=== PATIENT | male | born 1945 | race Caucasian/White ===

== ENCOUNTER 2017-10-26 09:30 | Outpatient (RCR) | payer MEDICARE, SELFPAY ==
[2017-10-19 10:55] VITALS: BP 160/76; PULSE 62; RESP 16; TEMP 36.2; BMI 21.6
[2017-10-19 11:14] VITALS: BMI 21.6
--- NOTE | 2017-10-19 11:53 | PCM.WC.HP ---
(1) Edema of both lower legs due to peripheral venous insufficiency Status: Acute Current Visit: Yes Code(s): I87.2 - Venous insufficiency (chronic) (peripheral); R60.9 - Edema, unspecified (2) Peripheral arterial occlusive disease Status: Acute Current Visit: Yes Code(s): I77.9 - Disorder of arteries and arterioles, unspecified (3) Infected open wound Status: Acute Current Visit: Yes Code(s): T14.8XXA - Other injury of unspecified body region, initial encounter; L08.9 - Local infection of the skin and subcutaneous tissue, unspecified (4) MRSA (methicillin resistant Staphylococcus aureus) infection Status: Acute Current Visit: Yes Code(s): A49.02 - Methicillin resistant Staphylococcus aureus infection, unspecified site (5) Non-healing ulcer of lower extremity Status: Acute Current Visit: Yes Code(s): L97.909 - Non-pressure chronic ulcer of unspecified part of unspecified lower leg with unspecified severity History of Present Illness Date of Service: 10/19/17 Chief Complaint: Follow-up right lateral lower leg and posterior leg open ulcers History of Wound: 71-year-old white male that appears to be much older. For 9 months has been babying some punctuated ulcers on his right lower leg lateral and posterior. Now show some yellow slough and was cultured for MRSA. Started on clindamycin and is finishing that up in the last 2 pills. She has been using [id number] Neosporin ointment on open ulcers. Here by his family Dr. Elvia Roman Past Medical History Past Medical History: Lower leg for 9 months hyperlipidemia hypertension GERD Allergies/Adverse Reactions: Allergies amoxicillin Allergy (Verified 10/19/17 11:39) Unknown AMOXICILLIN Allergy (Uncoded 08/04/17 21:51) Rash BACTRIM Allergy (Uncoded 08/04/17 21:51) Unknown ERYTHROMYCIN Allergy (Uncoded 08/04/17 21:51) Unknown PRPOXYPHENE-ACETAMINOPHEN Allergy (Uncoded 08/04/17 21:51) Unknown Home Medications: Ambulatory Orders Medication Instructions Recorded Atorvastatin Calcium [Lipitor] 20 mg PO DAILY 11/06/16 Hydrochlorothiazide 25 mg PO DAILY 11/06/16 Lisinopril [Zestril] 40 mg PO DAILY 11/06/16 Potassium Chloride [K-Dur] 20 meq PO DAILY 11/06/16 BusPIRone [Buspar] 10 mg PO BID 04/10/17 Metoprolol Succinate [Toprol Xl] 100 mg PO DAILY 04/10/17 Amlodipine [Norvasc] 10 mg PO DAILY 08/04/17 Meclizine HCl 25 mg PO 4X/DAY PRN 08/04/17 Naproxen 500 mg PO BID PRN PRN 08/04/17 Omeprazole 40 mg PO DAILY 08/04/17 Paroxetine 40 mg PO DAILY 08/04/17 Clindamycin [Cleocin] 300 mg PO TID 10/19/17 Lives: Alone Smoking Status: Former smoker Review of Systems Constitutional: Denies: Chills, Fever Eyes: Denies: Blurred vision, Drainage, Pain HEENT: Denies: Difficulty Hearing, Difficulty Swallowing, Sore Throat, Visual Changes Cardiovascular: Denies: Chest Pain, Palpitations, Syncope Respiratory: Denies: Cough, Shortness of Breath Gastrointestinal: Denies: Abdominal Pain, Nausea, Vomiting Genitourinary: Denies: Dysuria, Frequency Musculoskeletal: Denies: Joint Pain, Muscle pain Skin: Reports: Wounds - Open ulcers right lower leg. Denies: Jaundice, Rash Neurological: Denies: Balance problems, Change in Speech, Difficulty swallowing, Focal weakness Psychiatric: Denies: Anxiety, Depression Endocrine: Denies: Change in Body Habitus Hematologic/ Lymphatic: Denies: Adenopathy - Physical Exam Vital Signs Temp Pulse Resp BP 97.1 F L 62 16 160/76 H 10/19/17 10:55 10/19/17 10:55 10/19/17 10:55 10/19/17 10:55 General: Oriented x3, Cooperative, Well developed HEENT: Atraumatic, PERRLA Oral: Moist Mucosa Neck: Supple, No JVD Lungs: Clear to auscultation, Normal air movement Cardiovascular: Regular rate, Regular Rhythm Abdomen: Bowel Sounds Present, Soft, Non Tender, No Hepato-splenomegaly Extremities: No clubbing, No edema, - - Right lower leg ulcers lateral and posterior Wound Measurements and Assessment WC - Nurse 1 - General Ulcer Measurement Start: 10/19/17 10:36 Freq: Status: Active Protocol: Activity Type Activity Date Activity User E-Sign Co-Sign Detail Recorded Client Recorded Date Recorded By Document 10/19/17 10:55 [facility] [id number] 10/19/17 11:11 [facility] 10/19/17 10:55 Wound Center Nurse 1 [Ulcer Assessment] #1- RT POST LEG CLUSTER -Combined with other wound No -Current Size (cm) - Length 20 -Current Size (cm) - Width 7.8 -Current Size (cm) - Depth 0.1 -Total Square Cm 156.0 -Date of Last Picture (Recall this 10/19/17 field) -Photo Taken Yes -Epithelialization None Present -Tunneling No -Undermining/Tunneling No -Exudate Amt Small (1-33%) -Exudate Type Serous -Granulation Amt Small (1-33%) -Granulation Quality Red -Slough/Fibrin Yes -Necrosis Amt Small (1-33%) -Necrotic Tissue Type Adherent Slough -Structure Exposed N/A -Texture (Frances-wound Skin Appearance) Rash -Moisture (Frances-wound Skin Appearance Assessed ) -Color (Frances-wound Skin Appearance) Ecchymosis Erythema -Temperature (Frances-wound Skin No Abnormality Appearance) (Pt Warm) -Tenderness on Palpation (Frances-wound No Skin Appearance) -Ulcer Cleansing Rinsed/ Irrigated with Saline -Foul Odor after Cleansing No -Anesthetic Used 4% Lidocaine Solution [Edema Assessment] -Lower Limb Edema Present Yes -Right Calf (cm) 31.5 -Right Ankle (cm) 22.9 -Left Calf (cm) 30.5 -Left Ankle (cm) 21.6 WC - Nurse 2 - General Ulcer CM Notes Start: 10/19/17 10:36 Freq: Status: Active Protocol: Activity Type Activity Date Activity User E-Sign Co-Sign Detail Recorded Client Recorded Date Recorded By Document 10/19/17 11:34 MW [id number] 10/19/17 11:40 MW 10/19/17 11:34 Wound Center Nurse 2 [Procedure/Treatment] #1- RT POST LEG CLUSTER -Time 11:34 -Correct Patient Yes -Correct Side, Site, Position Yes -Correct Procedure Yes -Procedure Performed Yes -Type of Procedure Debridement -Clinical Debridement Subcutaneous -Post Debridement Size (cm) - Length 20.0 -Post Debridement Size (cm) - Width 6.0 -Post Debridement Size (cm) - Depth 0.1 -Total Square Cm 120.00 -Wound/Ulcer Outcome Not Healed -Ulcer Cleansing Rinsed/ Irrigated with Saline -Foul Odor after Cleansing No -Bioengineered Tissue No -Bleeding Controlled with Pressure -Treatment Response Procedure Tolerated Well [See Physician Procedure note for Specifics] Pain Scale: 0-10 Numeric [Pain] -Is Patient Pain Free? Yes Musculoskeletal: No Tenderness to Palpation of Joints or Extremities Lymphatic: No Cervical, Supraclavicular, or Inguinal Adenopathy Neurological: Cranial nerves II-XII grossly intact, Neuro grossly intact Psych/Mental Status: Normal Affect, Appropriate, Alert and oriented to time, place, person, mood and affect Debridement Note Post-Debridement Measurements/Treatment WC - Nurse 2 - General Ulcer CM Notes Start: 10/19/17 10:36 Freq: Status: Active Protocol: Activity Type Activity Date Activity User E-Sign Co-Sign Detail Recorded Client Recorded Date Recorded By Document 10/19/17 11:34 MW [id number] 10/19/17 11:40 MW 10/19/17 11:34 Wound Center Nurse 2 #1- RT POST LEG CLUSTER -Time 11:34 -Correct Patient Yes -Correct Side, Site, Position Yes -Correct Procedure Yes -Procedure Performed Yes -Type of Procedure Debridement -Clinical Debridement Subcutaneous -Post Debridement Size (cm) - Length 20.0 -Post Debridement Size (cm) - Width 6.0 -Post Debridement Size (cm) - Depth 0.1 -Total Square Cm 120.00 -Wound/Ulcer Outcome Not Healed -Ulcer Cleansing Rinsed/ Irrigated with Saline -Foul Odor after Cleansing No -Bioengineered Tissue No -Bleeding Controlled with Pressure -Treatment Response Procedure Tolerated Well Pain Scale: 0-10 Numeric Is Patient Pain Free? Yes Wound debrided: Lower leg ulcers cluster Type of Debridement: Excisional debridement Anesthesia Used: 5% Lidocaine Gel Depth: Down to and including healthy tissue, in the subcutaneous layer Percentage of wound debrided: 100 Instrument Used: 5mm curette Tissue Removed: Slough Amount of bleeding with debridement: Mild Bleeding Controlled with: Compression and gauze Patient tolerated procedure well Assessment/Plan Ulcer aerobic and anaerobic to legs Active Problems Edema of both lower legs due to peripheral venous insufficiency (Acute) Peripheral arterial occlusive disease (Acute) Infected open wound (Acute) MRSA (methicillin resistant Staphylococcus aureus) infection (Acute) Non-healing ulcer of lower extremity (Acute) Assessment: Edema bilateral lower legs. Open ulcers right lower leg infected. Nonhealing ulcers right leg. Peripheral vascular occlusive disease. Peripheral arterial occlusive disease Plan: Leg with Hibiclens. Apply Aquacel silver moistened with Adaptic over top gauze and Kt. Single layer Tubigrip bilateral lower legs. Arterial brachial studies and a venous study schedule. Finish antibiotics will call with new culture. Low up 1 week
--- NOTE | 2017-10-19 12:00 | HP.PCM_ITS ---
(1) Edema of both lower legs due to peripheral venous insufficiency Status: Acute Current Visit: Yes Code(s): I87.2 - Venous insufficiency ( chronic) (peripheral); R60.9 - Edema, unspecified (2) Peripheral arterial occlusive disease Status: Acute Current Visit: Yes Code(s): I77.9 - Disorder of arteries and arterioles, unspecified (3) Infected open wound Status: Acute Current Visit: Yes Code(s): T14.8XXA - Other injury of unspecified body region, initial encounter; L08.9 - Local infection of the skin and subcutaneous tissue, unspecified (4) MRSA (methicillin resistant Staphylococcus aureus) infection Status: Acute Current Visit: Yes Code(s): A49.02 - Methicillin resistant Staphylococcus aureus infection, unspecified site (5) Non-healing ulcer of lower extremity Status: Acute Current Visit: Yes Code(s): L97.909 - Non-pressure chronic ulcer of unspecified part of unspecified lower leg with unspecified severity History of Present Illness Date of Service: 10/19/17 Chief Complaint: Follow-up right lateral lower leg and posterior leg open ulcers History of Wound: 71-year-old white male that appears to be much older. For 9 months has been babying some punctuated ulcers on his right lower leg lateral and posterior. Now show some yellow slough and was cultured for MRSA. Started on clindamycin and is finishing that up in the last 2 pills. She has been using [id number] Neosporin ointment on open ulcers. Here by his family Dr. Elvia Roman Past Medical History Past Medical History: Lower leg for 9 months hyperlipidemia hypertension GERD Allergies/Adverse Reactions: Allergies amoxicillin Allergy (Verified 10/19/17 11:39) Unknown AMOXICILLIN Allergy (Uncoded 08/04/17 21:51) Rash BACTRIM Allergy (Uncoded 08/04/17 21:51) Unknown ERYTHROMYCIN Allergy (Uncoded 08/04/17 21:51) Unknown PRPOXYPHENE-ACETAMINOPHEN Allergy (Uncoded 08/04/17 21:51) Unknown Home Medications: Ambulatory Orders Medication Instructions Recorded Atorvastatin Calcium [Lipitor] 20 mg PO DAILY 11/06/16 Hydrochlorothiazide 25 mg PO DAILY 11/06/16 Lisinopril [Zestril] 40 mg PO DAILY 11/06/16 Potassium Chloride [K-Dur] 20 meq PO DAILY 11/06/16 BusPIRone [Buspar] 10 mg PO BID 04/10/17 Metoprolol Succinate [Toprol Xl] 100 mg PO DAILY 04/10/17 Amlodipine [Norvasc] 10 mg PO DAILY 08/04/17 Meclizine HCl 25 mg PO 4X/DAY PRN 08/04/17 Naproxen 500 mg PO BID PRN PRN 08/04/17 Omeprazole 40 mg PO DAILY 08/04/17 Paroxetine 40 mg PO DAILY 08/04/17 Clindamycin [Cleocin] 300 mg PO TID 10/19/17 Lives: Alone Smoking Status: Former smoker Review of Systems Constitutional: Denies: Chills, Fever Eyes: Denies: Blurred vision, Drainage, Pain HEENT: Denies: Difficulty Hearing, Difficulty Swallowing, Sore Throat, Visual Changes Cardiovascular: Denies: Chest Pain, Palpitations, Syncope Respiratory: Denies: Cough, Shortness of Breath Gastrointestinal: Denies: Abdominal Pain, Nausea, Vomiting Genitourinary: Denies: Dysuria, Frequency Musculoskeletal: Denies: Joint Pain, Muscle pain Skin: Reports: Wounds - Open ulcers right lower leg. Denies: Jaundice, Rash Neurological: Denies: Balance problems, Change in Speech, Difficulty swallowing , Focal weakness Psychiatric: Denies: Anxiety, Depression Endocrine: Denies: Change in Body Habitus Hematologic/ Lymphatic: Denies: Adenopathy - Physical Exam Vital Signs Temp Pulse Resp BP 97.1 F L 62 16 160/76 H 10/19/17 10:55 10/19/17 10:55 10/19/17 10:55 10/19/17 10:55 General: Oriented x3, Cooperative, Well developed HEENT: Atraumatic, PERRLA Oral: Moist Mucosa Neck: Supple, No JVD Lungs: Clear to auscultation, Normal air movement Cardiovascular: Regular rate, Regular Rhythm Abdomen: Bowel Sounds Present, Soft, Non Tender, No Hepato-splenomegaly Extremities: No clubbing, No edema, - - Right lower leg ulcers lateral and posterior Wound Measurements and Assessment WC - Nurse 1 - General Ulcer Measurement Start: 10/19/17 10:36 Freq: Status: Active Protocol: Activity Type Activity Date Activity User E-Sign Co-Sign Detail Recorded Client Recorded Date Recorded By Document 10/19/17 10:55 [facility] [id number] 10/19/17 11:11 [facility] 10/19/17 10:55 Wound Center Nurse 1 [Ulcer Assessment] #1- RT POST LEG CLUSTER -Combined with other wound No -Current Size (cm) - Length 20 -Current Size (cm) - Width 7.8 -Current Size (cm) - Depth 0.1 -Total Square Cm 156.0 -Date of Last Picture (Recall this 10/19/17 field) -Photo Taken Yes -Epithelialization None Present -Tunneling No -Undermining/Tunneling No -Exudate Amt Small (1-33%) -Exudate Type Serous -Granulation Amt Small (1-33%) -Granulation Quality Red -Slough/Fibrin Yes -Necrosis Amt Small (1-33%) -Necrotic Tissue Type Adherent Slough -Structure Exposed N/A -Texture (Frances-wound Skin Appearance) Rash -Moisture (Frances-wound Skin Appearance Assessed ) -Color (Frances-wound Skin Appearance) Ecchymosis Erythema -Temperature (Frances-wound Skin No Abnormality Appearance) (Pt Warm) -Tenderness on Palpation (Frances-wound No Skin Appearance) -Ulcer Cleansing Rinsed/ Irrigated with Saline -Foul Odor after Cleansing No -Anesthetic Used 4% Lidocaine Solution [Edema Assessment] -Lower Limb Edema Present Yes -Right Calf (cm) 31.5 -Right Ankle (cm) 22.9 -Left Calf (cm) 30.5 -Left Ankle (cm) 21.6 WC - Nurse 2 - General Ulcer CM Notes Start: 10/19/17 10:36 Freq: Status: Active Protocol: Activity Type Activity Date Activity User E-Sign Co-Sign Detail Recorded Client Recorded Date Recorded By Document 10/19/17 11:34 MW [id number] 10/19/17 11:40 MW 10/19/17 11:34 Wound Center Nurse 2 [Procedure/Treatment] #1- RT POST LEG CLUSTER -Time 11:34 -Correct Patient Yes -Correct Side, Site, Position Yes -Correct Procedure Yes -Procedure Performed Yes -Type of Procedure Debridement -Clinical Debridement Subcutaneous -Post Debridement Size (cm) - Length 20.0 -Post Debridement Size (cm) - Width 6.0 -Post Debridement Size (cm) - Depth 0.1 -Total Square Cm 120.00 -Wound/Ulcer Outcome Not Healed -Ulcer Cleansing Rinsed/ Irrigated with Saline -Foul Odor after Cleansing No -Bioengineered Tissue No -Bleeding Controlled with Pressure -Treatment Response Procedure Tolerated Well [See Physician Procedure note for Specifics] Pain Scale: 0-10 Numeric [Pain] -Is Patient Pain Free? Yes Musculoskeletal: No Tenderness to Palpation of Joints or Extremities Lymphatic: No Cervical, Supraclavicular, or Inguinal Adenopathy Neurological: Cranial nerves II-XII grossly intact, Neuro grossly intact Psych/Mental Status: Normal Affect, Appropriate, Alert and oriented to time, place, person, mood and affect Debridement Note Post-Debridement Measurements/Treatment WC - Nurse 2 - General Ulcer CM Notes Start: 10/19/17 10:36 Freq: Status: Active Protocol: Activity Type Activity Date Activity User E-Sign Co-Sign Detail Recorded Client Recorded Date Recorded By Document 10/19/17 11:34 MW [id number] 10/19/17 11:40 MW 10/19/17 11:34 Wound Center Nurse 2 #1- RT POST LEG CLUSTER -Time 11:34 -Correct Patient Yes -Correct Side, Site, Position Yes -Correct Procedure Yes -Procedure Performed Yes -Type of Procedure Debridement -Clinical Debridement Subcutaneous -Post Debridement Size (cm) - Length 20.0 -Post Debridement Size (cm) - Width 6.0 -Post Debridement Size (cm) - Depth 0.1 -Total Square Cm 120.00 -Wound/Ulcer Outcome Not Healed -Ulcer Cleansing Rinsed/ Irrigated with Saline -Foul Odor after Cleansing No -Bioengineered Tissue No -Bleeding Controlled with Pressure -Treatment Response Procedure Tolerated Well Pain Scale: 0-10 Numeric Is Patient Pain Free? Yes Wound debrided: Lower leg ulcers cluster Type of Debridement: Excisional debridement Anesthesia Used: 5% Lidocaine Gel Depth: Down to and including healthy tissue, in the subcutaneous layer Percentage of wound debrided: 100 Instrument Used: 5mm curette Tissue Removed: Slough Amount of bleeding with debridement: Mild Bleeding Controlled with: Compression and gauze Patient tolerated procedure well Assessment/Plan Ulcer aerobic and anaerobic to legs Active Problems Edema of both lower legs due to peripheral venous insufficiency (Acute) Peripheral arterial occlusive disease (Acute) Infected open wound (Acute) MRSA (methicillin resistant Staphylococcus aureus) infection (Acute) Non-healing ulcer of lower extremity (Acute) Assessment: Edema bilateral lower legs. Open ulcers right lower leg infected. Nonhealing ulcers right leg. Peripheral vascular occlusive disease. Peripheral arterial occlusive disease Plan: Leg with Hibiclens. Apply Aquacel silver moistened with Adaptic over top gauze and Kt. Single layer Tubigrip bilateral lower legs. Arterial brachial studies and a venous study schedule. Finish antibiotics will call with new culture. Low up 1 week
[2017-10-26 09:29] VITALS: BP 143/88; PULSE 64; RESP 18; TEMP 36.4; BMI 21.6
--- NOTE | 2017-10-26 09:58 | PCM.WC.PN ---
(1) Edema of both lower legs due to peripheral venous insufficiency Status: Acute Current Visit: Yes Code(s): I87.2 - Venous insufficiency (chronic) (peripheral); R60.9 - Edema, unspecified (2) Peripheral arterial occlusive disease Status: Acute Current Visit: Yes Code(s): I77.9 - Disorder of arteries and arterioles, unspecified (3) Infected open wound Status: Acute Current Visit: Yes Code(s): T14.8XXA - Other injury of unspecified body region, initial encounter; L08.9 - Local infection of the skin and subcutaneous tissue, unspecified (4) MRSA (methicillin resistant Staphylococcus aureus) infection Status: Acute Current Visit: Yes Code(s): A49.02 - Methicillin resistant Staphylococcus aureus infection, unspecified site (5) Non-healing ulcer of lower extremity Status: Acute Current Visit: Yes Code(s): L97.909 - Non-pressure chronic ulcer of unspecified part of unspecified lower leg with unspecified severity Type of Wound Date of Service: 10/26/17 Chief Complaint: Follow-up right lateral lower leg and posterior leg open ulcers History of Wound: 71-year-old white male that appears to be much older. For 9 months has been babying some punctuated ulcers on his right lower leg lateral and posterior. Now show some yellow slough and was cultured for MRSA. Started on clindamycin and is finishing that up in the last 2 pills. She has been using [id number] Neosporin ointment on open ulcers. Here by his family Dr. Elvia Roman Progress of Wound: We received the cultures back and patient is growing staph in his leg. Patient was called and levofloxacin but has not started because patient has no phone. He will punctuated open ulcers on the right lower leg improving just with compression and with the wound care that we are providing. - Physical Exam Vital Signs Temp Pulse Resp BP 97.5 F L 64 18 143/88 H 10/26/17 09:29 10/26/17 09:29 10/26/17 09:29 10/26/17 09:29 General: Oriented x3, Cooperative, Well developed HEENT: Atraumatic, PERRLA Oral: Moist Mucosa Neck: Supple, No JVD Lungs: Clear to auscultation, Normal air movement Cardiovascular: Regular rate, Regular Rhythm Abdomen: Bowel Sounds Present, Soft, Non Tender, No Hepato-splenomegaly Extremities: No clubbing, No edema, - - Lower leg ulcers cluster Wound Measurements and Assessment WC - Nurse 1 - General Ulcer Measurement Start: 10/19/17 10:36 Freq: Status: Active Protocol: Activity Type Activity Date Activity User E-Sign Co-Sign Detail Recorded Client Recorded Date Recorded By Document 10/26/17 09:29 DL [id number] 10/26/17 09:34 DL 10/26/17 09:29 Wound Center Nurse 1 [Ulcer Assessment] #1- RT POST LEG CLUSTER -Current Size (cm) - Length 21 -Current Size (cm) - Width 10.5 -Current Size (cm) - Depth 0.1 -Total Square Cm 220.5 -Photo Taken No -Exudate Amt Small (1-33%) -Exudate Type Serosanguineous -Wound Margin Distinct, Outline Attached -Granulation Amt Small (1-33%) -Granulation Quality [place] -Necrosis Amt Large (67-100%) -Necrotic Tissue Type Adherent Slough -Structure Exposed N/A -Texture (Frances-wound Skin Appearance) Excoriation -Moisture (Frances-wound Skin Appearance Dry/Scaly ) -Color (Frances-wound Skin Appearance) Erythema -Temperature (Frances-wound Skin No Abnormality Appearance) (Pt Warm) -Ulcer Cleansing Rinsed/ Irrigated with Saline -Foul Odor after Cleansing No -Anesthetic Used 4% Lidocaine Solution [Edema Assessment] -Right Calf (cm) 33.7 -Right Ankle (cm) 21.9 WC - Nurse 2 - General Ulcer CM Notes Start: 10/19/17 10:36 Freq: Status: Active Protocol: Activity Type Activity Date Activity User E-Sign Co-Sign Detail Recorded Client Recorded Date Recorded By Document 10/26/17 09:52 MW [id number] 10/26/17 09:57 MW 10/26/17 09:52 Wound Center Nurse 2 [Procedure/Treatment] #1- RT POST LEG CLUSTER -Time 09:53 -Correct Patient Yes -Correct Side, Site, Position Yes -Correct Procedure Yes -Procedure Performed Yes -Type of Procedure Debridement -Clinical Debridement Subcutaneous -Post Debridement Size (cm) - Length 20.0 -Post Debridement Size (cm) - Width 8.0 -Post Debridement Size (cm) - Depth 0.2 -Total Square Cm 160.00 -Wound/Ulcer Outcome Not Healed -Ulcer Cleansing Rinsed/ Irrigated with Saline -Foul Odor after Cleansing No -Bioengineered Tissue No -Bleeding Controlled with Pressure -Treatment Response Procedure Tolerated Well [See Physician Procedure note for Specifics] Pain Scale: 0-10 Numeric [Pain] -Is Patient Pain Free? Yes Musculoskeletal: No Tenderness to Palpation of Joints or Extremities Lymphatic: No Cervical, Supraclavicular, or Inguinal Adenopathy Neurological: Cranial nerves II-XII grossly intact, Neuro grossly intact Psych/Mental Status: Normal Affect, Appropriate, Alert and oriented to time, place, person, mood and affect Debridement Note Post-Debridement Measurements/Treatment WC - Nurse 2 - General Ulcer CM Notes Start: 10/19/17 10:36 Freq: Status: Active Protocol: Activity Type Activity Date Activity User E-Sign Co-Sign Detail Recorded Client Recorded Date Recorded By Document 10/19/17 11:34 MW [id number] 10/19/17 11:40 MW Document 10/26/17 09:52 MW [id number] 10/26/17 09:57 MW 10/19/17 10/26/17 11:34 09:52 Wound Center Nurse 2 #1- RT POST LEG CLUSTER -Time 11:34 09:53 -Correct Patient Yes Yes -Correct Side, Site, Position Yes Yes -Correct Procedure Yes Yes -Procedure Performed Yes Yes -Type of Procedure Debridement Debridement -Clinical Debridement Subcutaneous Subcutaneous -Post Debridement Size (cm) - Length 20.0 20.0 -Post Debridement Size (cm) - Width 6.0 8.0 -Post Debridement Size (cm) - Depth 0.1 0.2 -Total Square Cm 120.00 160.00 -Wound/Ulcer Outcome Not Healed Not Healed -Ulcer Cleansing Rinsed/ Rinsed/ Irrigated with Irrigated with Saline Saline -Foul Odor after Cleansing No No -Bioengineered Tissue No No -Bleeding Controlled with Pressure Pressure -Treatment Response Procedure Procedure Tolerated Well Tolerated Well Pain Scale: 0-10 Numeric Is Patient Pain Free? Yes Yes Wound debrided: Lower leg ulcer clusters Type of Debridement: Excisional debridement Anesthesia Used: 5% Lidocaine Gel Depth: Down to and including healthy tissue, in the subcutaneous layer Percentage of wound debrided: 100 Instrument Used: 5mm curette Tissue Removed: Slough and fibrin Severity: Limited To Skin Breakdown Amount of bleeding with debridement: Mild Bleeding Controlled with: Compression and gauze Patient tolerated procedure well Assessment/Plan Active Problems Edema of both lower legs due to peripheral venous insufficiency (Acute) Peripheral arterial occlusive disease (Acute) Infected open wound (Acute) MRSA (methicillin resistant Staphylococcus aureus) infection (Acute) Non-healing ulcer of lower extremity (Acute) Assessment: Edema bilateral lower legs. Open ulcers right lower leg infected. Nonhealing ulcers right leg. Peripheral vascular occlusive disease. Peripheral arterial occlusive disease Plan: Leg with Hibiclens. Apply Aquacel silver moistened with Adaptic over top gauze and Kt. Single layer Tubigrip bilateral lower legs. Arterial brachial studies and a venous study schedule scheduled for November 02. Start the levofloxacin. Low up 1 week
--- NOTE | 2017-10-26 10:02 | PN.PCM_ITS ---
(1) Edema of both lower legs due to peripheral venous insufficiency Status: Acute Current Visit: Yes Code(s): I87.2 - Venous insufficiency ( chronic) (peripheral); R60.9 - Edema, unspecified (2) Peripheral arterial occlusive disease Status: Acute Current Visit: Yes Code(s): I77.9 - Disorder of arteries and arterioles, unspecified (3) Infected open wound Status: Acute Current Visit: Yes Code(s): T14.8XXA - Other injury of unspecified body region, initial encounter; L08.9 - Local infection of the skin and subcutaneous tissue, unspecified (4) MRSA (methicillin resistant Staphylococcus aureus) infection Status: Acute Current Visit: Yes Code(s): A49.02 - Methicillin resistant Staphylococcus aureus infection, unspecified site (5) Non-healing ulcer of lower extremity Status: Acute Current Visit: Yes Code(s): L97.909 - Non-pressure chronic ulcer of unspecified part of unspecified lower leg with unspecified severity Type of Wound Date of Service: 10/26/17 Chief Complaint: Follow-up right lateral lower leg and posterior leg open ulcers History of Wound: 71-year-old white male that appears to be much older. For 9 months has been babying some punctuated ulcers on his right lower leg lateral and posterior. Now show some yellow slough and was cultured for MRSA. Started on clindamycin and is finishing that up in the last 2 pills. She has been using [id number] Neosporin ointment on open ulcers. Here by his family Dr. Elvia Roman Progress of Wound: We received the cultures back and patient is growing staph in his leg. Patient was called and levofloxacin but has not started because patient has no phone. He will punctuated open ulcers on the right lower leg improving just with compression and with the wound care that we are providing. - Physical Exam Vital Signs Temp Pulse Resp BP 97.5 F L 64 18 143/88 H 10/26/17 09:29 10/26/17 09:29 10/26/17 09:29 10/26/17 09:29 General: Oriented x3, Cooperative, Well developed HEENT: Atraumatic, PERRLA Oral: Moist Mucosa Neck: Supple, No JVD Lungs: Clear to auscultation, Normal air movement Cardiovascular: Regular rate, Regular Rhythm Abdomen: Bowel Sounds Present, Soft, Non Tender, No Hepato-splenomegaly Extremities: No clubbing, No edema, - - Lower leg ulcers cluster Wound Measurements and Assessment WC - Nurse 1 - General Ulcer Measurement Start: 10/19/17 10:36 Freq: Status: Active Protocol: Activity Type Activity Date Activity User E-Sign Co-Sign Detail Recorded Client Recorded Date Recorded By Document 10/26/17 09:29 DL [id number] 10/26/17 09:34 DL 10/26/17 09:29 Wound Center Nurse 1 [Ulcer Assessment] #1- RT POST LEG CLUSTER -Current Size (cm) - Length 21 -Current Size (cm) - Width 10.5 -Current Size (cm) - Depth 0.1 -Total Square Cm 220.5 -Photo Taken No -Exudate Amt Small (1-33%) -Exudate Type Serosanguineous -Wound Margin Distinct, Outline Attached -Granulation Amt Small (1-33%) -Granulation Quality [place] -Necrosis Amt Large (67-100%) -Necrotic Tissue Type Adherent Slough -Structure Exposed N/A -Texture (Frances-wound Skin Appearance) Excoriation -Moisture (Frances-wound Skin Appearance Dry/Scaly ) -Color (Frances-wound Skin Appearance) Erythema -Temperature (Frances-wound Skin No Abnormality Appearance) (Pt Warm) -Ulcer Cleansing Rinsed/ Irrigated with Saline -Foul Odor after Cleansing No -Anesthetic Used 4% Lidocaine Solution [Edema Assessment] -Right Calf (cm) 33.7 -Right Ankle (cm) 21.9 WC - Nurse 2 - General Ulcer CM Notes Start: 10/19/17 10:36 Freq: Status: Active Protocol: Activity Type Activity Date Activity User E-Sign Co-Sign Detail Recorded Client Recorded Date Recorded By Document 10/26/17 09:52 MW [id number] 10/26/17 09:57 MW 10/26/17 09:52 Wound Center Nurse 2 [Procedure/Treatment] #1- RT POST LEG CLUSTER -Time 09:53 -Correct Patient Yes -Correct Side, Site, Position Yes -Correct Procedure Yes -Procedure Performed Yes -Type of Procedure Debridement -Clinical Debridement Subcutaneous -Post Debridement Size (cm) - Length 20.0 -Post Debridement Size (cm) - Width 8.0 -Post Debridement Size (cm) - Depth 0.2 -Total Square Cm 160.00 -Wound/Ulcer Outcome Not Healed -Ulcer Cleansing Rinsed/ Irrigated with Saline -Foul Odor after Cleansing No -Bioengineered Tissue No -Bleeding Controlled with Pressure -Treatment Response Procedure Tolerated Well [See Physician Procedure note for Specifics] Pain Scale: 0-10 Numeric [Pain] -Is Patient Pain Free? Yes Musculoskeletal: No Tenderness to Palpation of Joints or Extremities Lymphatic: No Cervical, Supraclavicular, or Inguinal Adenopathy Neurological: Cranial nerves II-XII grossly intact, Neuro grossly intact Psych/Mental Status: Normal Affect, Appropriate, Alert and oriented to time, place, person, mood and affect Debridement Note Post-Debridement Measurements/Treatment WC - Nurse 2 - General Ulcer CM Notes Start: 10/19/17 10:36 Freq: Status: Active Protocol: Activity Type Activity Date Activity User E-Sign Co-Sign Detail Recorded Client Recorded Date Recorded By Document 10/19/17 11:34 MW [id number] 10/19/17 11:40 MW Document 10/26/17 09:52 MW [id number] 10/26/17 09:57 MW 10/19/17 10/26/17 11:34 09:52 Wound Center Nurse 2 #1- RT POST LEG CLUSTER -Time 11:34 09:53 -Correct Patient Yes Yes -Correct Side, Site, Position Yes Yes -Correct Procedure Yes Yes -Procedure Performed Yes Yes -Type of Procedure Debridement Debridement -Clinical Debridement Subcutaneous Subcutaneous -Post Debridement Size (cm) - Length 20.0 20.0 -Post Debridement Size (cm) - Width 6.0 8.0 -Post Debridement Size (cm) - Depth 0.1 0.2 -Total Square Cm 120.00 160.00 -Wound/Ulcer Outcome Not Healed Not Healed -Ulcer Cleansing Rinsed/ Rinsed/ Irrigated with Irrigated with Saline Saline -Foul Odor after Cleansing No No -Bioengineered Tissue No No -Bleeding Controlled with Pressure Pressure -Treatment Response Procedure Procedure Tolerated Well Tolerated Well Pain Scale: 0-10 Numeric Is Patient Pain Free? Yes Yes Wound debrided: Lower leg ulcer clusters Type of Debridement: Excisional debridement Anesthesia Used: 5% Lidocaine Gel Depth: Down to and including healthy tissue, in the subcutaneous layer Percentage of wound debrided: 100 Instrument Used: 5mm curette Tissue Removed: Slough and fibrin Severity: Limited To Skin Breakdown Amount of bleeding with debridement: Mild Bleeding Controlled with: Compression and gauze Patient tolerated procedure well Assessment/Plan Active Problems Edema of both lower legs due to peripheral venous insufficiency (Acute) Peripheral arterial occlusive disease (Acute) Infected open wound (Acute) MRSA (methicillin resistant Staphylococcus aureus) infection (Acute) Non-healing ulcer of lower extremity (Acute) Assessment: Edema bilateral lower legs. Open ulcers right lower leg infected. Nonhealing ulcers right leg. Peripheral vascular occlusive disease. Peripheral arterial occlusive disease Plan: Leg with Hibiclens. Apply Aquacel silver moistened with Adaptic over top gauze and Kt. Single layer Tubigrip bilateral lower legs. Arterial brachial studies and a venous study schedule scheduled for November 02. Start the levofloxacin. Low up 1 week
== END 2017-10-31 23:59 ==
LOC: WC 09:30
PROVIDERS: Family Provider Family Medicine; PCP Family Medicine; Visit Provider Nurse Practitioner
DX: I87.2 Venous insufficiency (chronic) (peripheral) (principal); I77.9 Disorder of arteries and arterioles, unspecified; L08.9 Local infection of the skin and subcutaneous tissue, unspecified; B95.62 Methicillin resistant Staphylococcus aureus infection as the cause of diseases classified elsewhere; L97.811 Non-pressure chronic ulcer of other part of right lower leg limited to breakdown of skin
CPT/HCPCS: 11042; 11045; 87070; 87075; 87077; 87186; 87205; 99213; G0463

== ENCOUNTER 2017-11-02 09:03 | Outpatient (RCR) | payer MEDICARE, SELFPAY ==
[2017-11-01 01:12] VITALS: PULSE 64; RESP 18; TEMP 36.4
[2017-11-02 09:24] VITALS: BP 163/88; PULSE 67; RESP 16; TEMP 36.2
--- NOTE | 2017-11-02 10:43 | VDLE_ITS ---
Reason For Study: Non-healing wound RIGHT LEFT CFV is compressible, spontaneous, phasic, CFV is compressible, spontaneous, phasic, competent and demonstrates normal competent, and demonstrates normal augmentation. augmentation. FV is compressible, spontaneous, phasic, FV is compressible, spontaneous, phasic, competent and demonstrates normal competent and demonstrates normal augmentation. augmentation. POP V is compressible, spontaneous, phasic, POP V is compressible, spontaneous, phasic, competent and demonstrates normal competent and demonstrates normal augmentation. augmentation. T/P Trunk is compressible. T/P Trunk is compressible. PTV is compressible. PTV is compressible. RT PerV is compressible. LT PerV is compressible. SFJ is competent SFJ is competent GSV is INCOMPETENT with reflux greater GSV is INCOMPETENT with reflux greater than .5 sec and diameter of .23 x .25 cm than .5 sec and diameter of .35 x .41 cm SSV is competent. SSV is competent. Procedure Exam performed in department. A preliminary report was called and/or faxed to [facility]. Interpretation Summary Deep veins of the lower extremities are bilaterally patent and compressible segmentally. There is no evidence of deep vein thrombosis on either side. Valvular competence appears intact within the proximal deep venous systems bilaterally. The greater saphenous veins appear bilaterally patent and compressible segmentally. Sapheno-femoral junctions are bilaterally competent . Segmental valvular incompetence is noted within the greater saphenous veins bilaterally. Small saphenous veins are patent and competent bilaterally. Ordering Physician: FIDELINA POOLE Performed By: Andreina Sellers RVT
--- NOTE | 2017-11-02 12:53 | PCM.WC.PN ---
(1) Edema of both lower legs due to peripheral venous insufficiency Status: Acute Current Visit: Yes Code(s): I87.2 - Venous insufficiency (chronic) (peripheral); R60.9 - Edema, unspecified (2) Infected open wound Status: Acute Current Visit: Yes Code(s): T14.8XXA - Other injury of unspecified body region, initial encounter; L08.9 - Local infection of the skin and subcutaneous tissue, unspecified (3) Non-healing ulcer of lower extremity Status: Acute Current Visit: Yes Code(s): L97.909 - Non-pressure chronic ulcer of unspecified part of unspecified lower leg with unspecified severity (4) Peripheral arterial occlusive disease Status: Acute Current Visit: Yes Code(s): I77.9 - Disorder of arteries and arterioles, unspecified (5) MRSA (methicillin resistant Staphylococcus aureus) infection Status: Acute Current Visit: Yes Code(s): A49.02 - Methicillin resistant Staphylococcus aureus infection, unspecified site Type of Wound Date of Service: 11/02/17 Chief Complaint: Follow-up right lateral lower leg and posterior leg open ulcers History of Wound: 71-year-old white male that appears to be much older. For 9 months has been babying some punctuated ulcers on his right lower leg lateral and posterior. Now show some yellow slough and was cultured for MRSA. Started on clindamycin and is finishing that up in the last 2 pills. She has been using [id number] Neosporin ointment on open ulcers. Here by his family Dr. Elvia Roman Progress of Wound: We received the cultures back and patient is growing staph in his leg. Patient was called and levofloxacin is finishing it now. He has punctuated open ulcers on the right lower leg improving just with compression and with the wound care that we are providing. AB studies and venous studies to be done this afternoon at the hospital - Physical Exam Vital Signs Temp Pulse Resp BP 97.1 F L 67 16 163/88 H 11/02/17 09:24 11/02/17 09:24 11/02/17 09:24 11/02/17 09:24 General: Oriented x3, Cooperative, Well developed HEENT: Atraumatic, PERRLA Oral: Moist Mucosa Neck: Supple, No JVD Lungs: Clear to auscultation, Normal air movement Cardiovascular: Regular rate, Regular Rhythm Abdomen: Bowel Sounds Present, Soft, Non Tender, No Hepato-splenomegaly Extremities: No clubbing, No edema Skin: Ulcer/ Wound - Lateral lower leg ulcers Wound Measurements and Assessment WC - Nurse 1 - General Ulcer Measurement Start: 11/02/17 09:23 Freq: Status: Active Protocol: Activity Type Activity Date Activity User E-Sign Co-Sign Detail Recorded Client Recorded Date Recorded By Document 11/02/17 09:24 BM [id number] 11/02/17 09:39 BMF 11/02/17 09:24 Wound Center Nurse 1 [Ulcer Assessment] #1- RT POST LEG CLUSTER -Combined with other wound No -Current Size (cm) - Length 19.6 -Current Size (cm) - Width 5.8 -Current Size (cm) - Depth 0.1 -Total Square Cm 113.68 -Photo Taken No -Epithelialization None Present -Tunneling No -Undermining/Tunneling No -Exudate Amt Small (1-33%) -Exudate Type Serous -Wound Margin Distinct, Outline Attached -Granulation Amt None Present (0 %) -Slough/Fibrin Yes -Necrosis Amt Large (67-100%) -Necrotic Tissue Type Adherent Slough -Structure Exposed N/A -Texture (Frances-wound Skin Appearance) Scarring -Moisture (Frances-wound Skin Appearance Dry/Scaly ) -Color (Frances-wound Skin Appearance) Erythema -Temperature (Frances-wound Skin No Abnormality Appearance) (Pt Warm) -Tenderness on Palpation (Frances-wound Yes Skin Appearance) -Ulcer Cleansing Rinsed/ Irrigated with Saline -Foul Odor after Cleansing No -Anesthetic Used 5% Lidocaine Gel [Edema Assessment] -Lower Limb Edema Present Yes -Right Calf (cm) 31.1 -Right Ankle (cm) 21.5 -Left Calf (cm) 30.4 -Left Ankle (cm) 20 WC - Nurse 2 - General Ulcer CM Notes Start: 11/02/17 09:23 Freq: Status: Active Protocol: Activity Type Activity Date Activity User E-Sign Co-Sign Detail Recorded Client Recorded Date Recorded By Document 11/02/17 10:00 MW [id number] 11/02/17 10:05 MW 11/02/17 10:00 Wound Center Nurse 2 [Procedure/Treatment] #1- RT POST LEG CLUSTER -Time 10:00 -Correct Patient Yes -Correct Side, Site, Position Yes -Correct Procedure Yes -Procedure Performed Yes -Type of Procedure Debridement -Clinical Debridement Subcutaneous -Post Debridement Size (cm) - Length 17.3 -Post Debridement Size (cm) - Width 4.5 -Post Debridement Size (cm) - Depth 0.1 -Total Square Cm 77.85 -Wound/Ulcer Outcome Not Healed -Ulcer Cleansing Rinsed/ Irrigated with Saline -Foul Odor after Cleansing No -Bioengineered Tissue No -Bleeding Controlled with Pressure -Treatment Response Procedure Tolerated Well [See Physician Procedure note for Specifics] Pain Scale: 0-10 Numeric [Pain] -Is Patient Pain Free? Yes Musculoskeletal: No Tenderness to Palpation of Joints or Extremities Lymphatic: No Cervical, Supraclavicular, or Inguinal Adenopathy Neurological: Cranial nerves II-XII grossly intact, Neuro grossly intact Psych/Mental Status: Normal Affect, Appropriate Debridement Note Post-Debridement Measurements/Treatment WC - Nurse 2 - General Ulcer CM Notes Start: 11/02/17 09:23 Freq: Status: Active Protocol: Activity Type Activity Date Activity User E-Sign Co-Sign Detail Recorded Client Recorded Date Recorded By Document 11/02/17 10:00 MW [id number] 11/02/17 10:05 MW 11/02/17 10:00 Wound Center Nurse 2 #1- RT POST LEG CLUSTER -Time 10:00 -Correct Patient Yes -Correct Side, Site, Position Yes -Correct Procedure Yes -Procedure Performed Yes -Type of Procedure Debridement -Clinical Debridement Subcutaneous -Post Debridement Size (cm) - Length 17.3 -Post Debridement Size (cm) - Width 4.5 -Post Debridement Size (cm) - Depth 0.1 -Total Square Cm 77.85 -Wound/Ulcer Outcome Not Healed -Ulcer Cleansing Rinsed/ Irrigated with Saline -Foul Odor after Cleansing No -Bioengineered Tissue No -Bleeding Controlled with Pressure -Treatment Response Procedure Tolerated Well Pain Scale: 0-10 Numeric Is Patient Pain Free? Yes Wound debrided: Right lower leg ulcer cluster Type of Debridement: Excisional debridement Anesthesia Used: 5% Lidocaine Gel Depth: Down to and including healthy tissue, in the subcutaneous layer Percentage of wound debrided: 100 Instrument Used: 5mm curette Tissue Removed: Slough and devitalized tissue Severity: Limited To Skin Breakdown Amount of bleeding with debridement: Mild Bleeding Controlled with: Compression and gauze Patient tolerated procedure well Assessment/Plan Serial brachial studies done today venous study Active Problems Edema of both lower legs due to peripheral venous insufficiency (Acute) Peripheral arterial occlusive disease (Acute) Infected open wound (Acute) MRSA (methicillin resistant Staphylococcus aureus) infection (Acute) Non-healing ulcer of lower extremity (Acute) Assessment: Edema bilateral lower legs. Open ulcers right lower leg infected. Nonhealing ulcers right leg. Peripheral vascular occlusive disease. Peripheral arterial occlusive disease Plan: Leg with Hibiclens. Apply Aquacel silver moistened with Adaptic over top gauze and Kt. Single layer Tubigrip bilateral lower legs. Arterial brachial studies and a venous study schedule scheduled for November 02. continue the levofloxacin. Low up 1 week
--- NOTE | 2017-11-02 12:58 | PN.PCM_ITS ---
(1) Edema of both lower legs due to peripheral venous insufficiency Status: Acute Current Visit: Yes Code(s): I87.2 - Venous insufficiency ( chronic) (peripheral); R60.9 - Edema, unspecified (2) Infected open wound Status: Acute Current Visit: Yes Code(s): T14.8XXA - Other injury of unspecified body region, initial encounter; L08.9 - Local infection of the skin and subcutaneous tissue, unspecified (3) Non-healing ulcer of lower extremity Status: Acute Current Visit: Yes Code(s): L97.909 - Non-pressure chronic ulcer of unspecified part of unspecified lower leg with unspecified severity (4) Peripheral arterial occlusive disease Status: Acute Current Visit: Yes Code(s): I77.9 - Disorder of arteries and arterioles, unspecified (5) MRSA (methicillin resistant Staphylococcus aureus) infection Status: Acute Current Visit: Yes Code(s): A49.02 - Methicillin resistant Staphylococcus aureus infection, unspecified site Type of Wound Date of Service: 11/02/17 Chief Complaint: Follow-up right lateral lower leg and posterior leg open ulcers History of Wound: 71-year-old white male that appears to be much older. For 9 months has been babying some punctuated ulcers on his right lower leg lateral and posterior. Now show some yellow slough and was cultured for MRSA. Started on clindamycin and is finishing that up in the last 2 pills. She has been using [id number] Neosporin ointment on open ulcers. Here by his family Dr. Elvia Roman Progress of Wound: We received the cultures back and patient is growing staph in his leg. Patient was called and levofloxacin is finishing it now. He has punctuated open ulcers on the right lower leg improving just with compression and with the wound care that we are providing. AB studies and venous studies to be done this afternoon at the hospital - Physical Exam Vital Signs Temp Pulse Resp BP 97.1 F L 67 16 163/88 H 11/02/17 09:24 11/02/17 09:24 11/02/17 09:24 11/02/17 09:24 General: Oriented x3, Cooperative, Well developed HEENT: Atraumatic, PERRLA Oral: Moist Mucosa Neck: Supple, No JVD Lungs: Clear to auscultation, Normal air movement Cardiovascular: Regular rate, Regular Rhythm Abdomen: Bowel Sounds Present, Soft, Non Tender, No Hepato-splenomegaly Extremities: No clubbing, No edema Skin: Ulcer/ Wound - Lateral lower leg ulcers Wound Measurements and Assessment WC - Nurse 1 - General Ulcer Measurement Start: 11/02/17 09:23 Freq: Status: Active Protocol: Activity Type Activity Date Activity User E-Sign Co-Sign Detail Recorded Client Recorded Date Recorded By Document 11/02/17 09:24 BM [id number] 11/02/17 09:39 BMF 11/02/17 09:24 Wound Center Nurse 1 [Ulcer Assessment] #1- RT POST LEG CLUSTER -Combined with other wound No -Current Size (cm) - Length 19.6 -Current Size (cm) - Width 5.8 -Current Size (cm) - Depth 0.1 -Total Square Cm 113.68 -Photo Taken No -Epithelialization None Present -Tunneling No -Undermining/Tunneling No -Exudate Amt Small (1-33%) -Exudate Type Serous -Wound Margin Distinct, Outline Attached -Granulation Amt None Present (0 %) -Slough/Fibrin Yes -Necrosis Amt Large (67-100%) -Necrotic Tissue Type Adherent Slough -Structure Exposed N/A -Texture (Frances-wound Skin Appearance) Scarring -Moisture (Frances-wound Skin Appearance Dry/Scaly ) -Color (Frances-wound Skin Appearance) Erythema -Temperature (Frances-wound Skin No Abnormality Appearance) (Pt Warm) -Tenderness on Palpation (Frances-wound Yes Skin Appearance) -Ulcer Cleansing Rinsed/ Irrigated with Saline -Foul Odor after Cleansing No -Anesthetic Used 5% Lidocaine Gel [Edema Assessment] -Lower Limb Edema Present Yes -Right Calf (cm) 31.1 -Right Ankle (cm) 21.5 -Left Calf (cm) 30.4 -Left Ankle (cm) 20 WC - Nurse 2 - General Ulcer CM Notes Start: 11/02/17 09:23 Freq: Status: Active Protocol: Activity Type Activity Date Activity User E-Sign Co-Sign Detail Recorded Client Recorded Date Recorded By Document 11/02/17 10:00 MW [id number] 11/02/17 10:05 MW 11/02/17 10:00 Wound Center Nurse 2 [Procedure/Treatment] #1- RT POST LEG CLUSTER -Time 10:00 -Correct Patient Yes -Correct Side, Site, Position Yes -Correct Procedure Yes -Procedure Performed Yes -Type of Procedure Debridement -Clinical Debridement Subcutaneous -Post Debridement Size (cm) - Length 17.3 -Post Debridement Size (cm) - Width 4.5 -Post Debridement Size (cm) - Depth 0.1 -Total Square Cm 77.85 -Wound/Ulcer Outcome Not Healed -Ulcer Cleansing Rinsed/ Irrigated with Saline -Foul Odor after Cleansing No -Bioengineered Tissue No -Bleeding Controlled with Pressure -Treatment Response Procedure Tolerated Well [See Physician Procedure note for Specifics] Pain Scale: 0-10 Numeric [Pain] -Is Patient Pain Free? Yes Musculoskeletal: No Tenderness to Palpation of Joints or Extremities Lymphatic: No Cervical, Supraclavicular, or Inguinal Adenopathy Neurological: Cranial nerves II-XII grossly intact, Neuro grossly intact Psych/Mental Status: Normal Affect, Appropriate Debridement Note Post-Debridement Measurements/Treatment WC - Nurse 2 - General Ulcer CM Notes Start: 11/02/17 09:23 Freq: Status: Active Protocol: Activity Type Activity Date Activity User E-Sign Co-Sign Detail Recorded Client Recorded Date Recorded By Document 11/02/17 10:00 MW [id number] 11/02/17 10:05 MW 11/02/17 10:00 Wound Center Nurse 2 #1- RT POST LEG CLUSTER -Time 10:00 -Correct Patient Yes -Correct Side, Site, Position Yes -Correct Procedure Yes -Procedure Performed Yes -Type of Procedure Debridement -Clinical Debridement Subcutaneous -Post Debridement Size (cm) - Length 17.3 -Post Debridement Size (cm) - Width 4.5 -Post Debridement Size (cm) - Depth 0.1 -Total Square Cm 77.85 -Wound/Ulcer Outcome Not Healed -Ulcer Cleansing Rinsed/ Irrigated with Saline -Foul Odor after Cleansing No -Bioengineered Tissue No -Bleeding Controlled with Pressure -Treatment Response Procedure Tolerated Well Pain Scale: 0-10 Numeric Is Patient Pain Free? Yes Wound debrided: Right lower leg ulcer cluster Type of Debridement: Excisional debridement Anesthesia Used: 5% Lidocaine Gel Depth: Down to and including healthy tissue, in the subcutaneous layer Percentage of wound debrided: 100 Instrument Used: 5mm curette Tissue Removed: Slough and devitalized tissue Severity: Limited To Skin Breakdown Amount of bleeding with debridement: Mild Bleeding Controlled with: Compression and gauze Patient tolerated procedure well Assessment/Plan Serial brachial studies done today venous study Active Problems Edema of both lower legs due to peripheral venous insufficiency (Acute) Peripheral arterial occlusive disease (Acute) Infected open wound (Acute) MRSA (methicillin resistant Staphylococcus aureus) infection (Acute) Non-healing ulcer of lower extremity (Acute) Assessment: Edema bilateral lower legs. Open ulcers right lower leg infected. Nonhealing ulcers right leg. Peripheral vascular occlusive disease. Peripheral arterial occlusive disease Plan: Leg with Hibiclens. Apply Aquacel silver moistened with Adaptic over top gauze and Kt. Single layer Tubigrip bilateral lower legs. Arterial brachial studies and a venous study schedule scheduled for November 02. continue the levofloxacin. Low up 1 week
--- NOTE | 2017-11-04 11:58 | LEAS ---
Arterial Study - Arterial Study Arterial Study: This is a 71-year-old male with a history of peripheral arterial occlusive disease and tobacco abuse. He presents with a chronic nonhealing wound of the right lower extremity. Suspecting the presence of atherosclerotic peripheral arterial occlusive disease, the patient was brought to the noninvasive vascular laboratory at this time for the purpose of bilateral noninvasive lower extremity arterial assessment. Doppler signal assessment was used to evaluate the pulses at ankle level bilaterally. The posterior tibial and dorsalis pedis pulses were triphasic bilaterally. Segmental limb pressures were obtained bilaterally. The right ankle pressure, as determined by posterior tibial pulse, was measured at 219 mmHg. The right ankle pressure, as determined by dorsalis pedis pulse, was measured at 201 mmHg. The right digital pressure was measured at 116 mmHg. The left ankle pressure, as determined by posterior tibial pulse, was measured at 206 mmHg. The left ankle pressure, as determined by dorsalis pedis pulse, was measured at 187 mmHg. The left digital pressure was measured at 110 mmHg. Pulse-volume recordings were obtained bilaterally and segmentally. Waveform amplitudes appeared to be satisfactory at low thigh, calf, and ankle levels bilaterally. Digital waveforms were diminished bilaterally. Resting ankle-brachial indices were calculated bilaterally. The resting right ankle-brachial index was calculated to be 1.22. The resting left ankle-brachial index was calculated to be 1.15. Digital-brachial indices were calculated bilaterally. The right digital-brachial index was calculated to be 0.65. The left digital-brachial index was calculated to be 0.61. Impression: Based upon the findings of this resting noninvasive lower extremity arterial study, arterial perfusion appears to be normal to ankle level bilaterally. Triphasic waveforms were noted at ankle level bilaterally. Resting ankle-brachial indices were bilaterally normal. Digital-brachial indices are mildly diminished, suggestive of mild, distal, small-vessel arterial occlusive disease in the lower extremities bilaterally. Clinical correlation is advised.
--- NOTE | 2017-11-04 12:03 | LEAS_ITS ---
Arterial Study - Arterial Study Arterial Study: This is a 71-year-old male with a history of peripheral arterial occlusive disease and tobacco abuse. He presents with a chronic nonhealing wound of the right lower extremity. Suspecting the presence of atherosclerotic peripheral arterial occlusive disease, the patient was brought to the noninvasive vascular laboratory at this time for the purpose of bilateral noninvasive lower extremity arterial assessment. Doppler signal assessment was used to evaluate the pulses at ankle level bilaterally. The posterior tibial and dorsalis pedis pulses were triphasic bilaterally. Segmental limb pressures were obtained bilaterally. The right ankle pressure, as determined by posterior tibial pulse, was measured at 219 mmHg. The right ankle pressure, as determined by dorsalis pedis pulse, was measured at 201 mmHg. The right digital pressure was measured at 116 mmHg. The left ankle pressure, as determined by posterior tibial pulse, was measured at 206 mmHg. The left ankle pressure, as determined by dorsalis pedis pulse, was measured at 187 mmHg. The left digital pressure was measured at 110 mmHg. Pulse-volume recordings were obtained bilaterally and segmentally. Waveform amplitudes appeared to be satisfactory at low thigh, calf, and ankle levels bilaterally. Digital waveforms were diminished bilaterally. Resting ankle-brachial indices were calculated bilaterally. The resting right ankle-brachial index was calculated to be 1.22. The resting left ankle- brachial index was calculated to be 1.15. Digital-brachial indices were calculated bilaterally. The right digital- brachial index was calculated to be 0.65. The left digital-brachial index was calculated to be 0.61. Impression: Based upon the findings of this resting noninvasive lower extremity arterial study, arterial perfusion appears to be normal to ankle level bilaterally. Triphasic waveforms were noted at ankle level bilaterally. Resting ankle-brachial indices were bilaterally normal. Digital-brachial indices are mildly diminished, suggestive of mild, distal, small-vessel arterial occlusive disease in the lower extremities bilaterally. Clinical correlation is advised.
== END 2017-12-01 23:59 ==
LOC: CVS 09:03
PROVIDERS: Family Provider Family Medicine; PCP Family Medicine; Visit Provider Nurse Practitioner
DX: I73.89 Other specified peripheral vascular diseases (principal); R60.0 Localized edema; Z86.14 Personal history of Methicillin resistant Staphylococcus aureus infection; I77.9 Disorder of arteries and arterioles, unspecified; L97.811 Non-pressure chronic ulcer of other part of right lower leg limited to breakdown of skin
CPT/HCPCS: 11042; 11045; 93923; 93970

== ENCOUNTER 2018-02-15 08:41 | Outpatient (RCR) | payer MEDICARE, SELFPAY ==
[2018-02-15 08:59] VITALS: BP 182/96; PULSE 51; RESP 16; TEMP 35.7; BMI 21.5
--- NOTE | 2018-02-15 10:11 | PCM.WC.PN ---
(1) Peripheral arterial occlusive disease Status: Acute Current Visit: No Code(s): I77.9 - Disorder of arteries and arterioles, unspecified Type of Wound Date of Service: 02/15/18 Chief Complaint: Follow-up left lower santillan scab and left posterior heel papule. History of Wound: 72-year-old white male who has lost considerable amount of weight. Does not suffer from edema of the lower extremities but does complain of coldness in his lower extremities. Had vascular studies done in November that showed some incompetence at the GSV bilaterally with reflux greater than 0.5 seconds. Patient self heard here for a scabbed area on his left lower santillan and a looks like an infected slight insect bite on his left lateral heel. Slight in stature lives in a house takes care of the yard doing pretty good sees Dr. Gan on a regular basis. Refer to Dr. Alvarez for some vascular evaluation and patient will be discharged from the wound center. Progress of Wound: There is no open areas to be evaluated patient has no edema still wears his 20-30 compression stockings from last visit. Coloring of the legs looks good feet up to mid calf do feel cool to touch. Arterial study shows some diminished artery flow to the digits. Patient wears either work boots or dress shoes never tennis shoes. We will have him follow-up with Dr. Alvarez and discharge from the wound center. - Physical Exam Vital Signs Temp Pulse Resp BP 96.2 F L 51 L 16 182/96 H 02/15/18 08:59 02/15/18 08:59 02/15/18 08:59 02/15/18 08:59 General: Oriented x3, Cooperative, Well developed HEENT: Atraumatic, PERRLA Oral: Moist Mucosa Neck: Supple, No JVD Lungs: Clear to auscultation, Normal air movement Cardiovascular: Regular rate, Regular Rhythm Abdomen: Bowel Sounds Present, Soft, Non Tender, No Hepato-splenomegaly Extremities: No clubbing, No edema Skin: No rashes, No breakdown Wound Measurements and Assessment WC - Nurse 1 - General Ulcer Measurement Start: 02/15/18 08:58 Freq: Status: Active Protocol: Activity Type Activity Date Activity User E-Sign Co-Sign Detail Recorded Client Recorded Date Recorded By Document 02/15/18 08:59 [id number] 02/15/18 09:25 CS 02/15/18 08:59 Wound Center Nurse 1 [Ulcer Assessment] #2 left medial heel -Combined with other wound No -Current Size (cm) - Length 0.3 -Current Size (cm) - Width 0.3 -Current Size (cm) - Depth 0.1 -Total Square Cm 0.09 -Date of Last Picture (Recall this 02/15/18 field) -Photo Taken Yes -Epithelialization None Present -Tunneling No -Undermining/Tunneling No -Circular Undermining No -Classification - Thickness Partial Thickness -Exudate Amt None Present (0 %) -Wound Margin Distinct, Outline Attached -Granulation Amt None Present (0 %) -Granulation Quality N/A -Slough/Fibrin Yes -Necrosis Amt None Present (0 %) -Necrotic Tissue Type Adherent Slough -Structure Exposed N/A -Texture (Frances-wound Skin Appearance) Assessed -Moisture (Frances-wound Skin Appearance No Abnormality ) Assessed -Color (Frances-wound Skin Appearance) Assessed Erythema -Temperature (Frances-wound Skin No Abnormality Appearance) (Pt Warm) -Tenderness on Palpation (Frances-wound No Skin Appearance) -Ulcer Cleansing Rinsed/ Irrigated with Saline -Foul Odor after Cleansing No -Anesthetic Used 4% Lidocaine Solution #1 left santillan -Combined with other wound No [Edema Assessment] -Lower Limb Edema Present No -Right Calf (cm) 30.5 -Right Ankle (cm) 21.5 -Left Calf (cm) 30.5 -Left Ankle (cm) 21.0 WC - Nurse 2 - General Ulcer CM Notes Start: 02/15/18 08:58 Freq: Status: Active Protocol: Activity Type Activity Date Activity User E-Sign Co-Sign Detail Recorded Client Recorded Date Recorded By Document 02/15/18 09:48 DV [id number] 02/15/18 09:53 DV 02/15/18 09:48 Wound Center Nurse 2 [Procedure/Treatment] #2 left medial heel -Time 09:51 -Correct Patient Yes -Procedure Performed No -Post Debridement Size (cm) - Length 0 -Post Debridement Size (cm) - Width 0 -Post Debridement Size (cm) - Depth 0 -Total Square Cm 0 -Wound/Ulcer Outcome Healed- Epithelialized [See Physician Procedure note for Specifics] Musculoskeletal: No Tenderness to Palpation of Joints or Extremities Lymphatic: No Cervical, Supraclavicular, or Inguinal Adenopathy Neurological: Cranial nerves II-XII grossly intact, Neuro grossly intact Psych/Mental Status: Normal Affect, Appropriate Debridement Note Post-Debridement Measurements/Treatment WC - Nurse 2 - General Ulcer CM Notes Start: 02/15/18 08:58 Freq: Status: Active Protocol: Activity Type Activity Date Activity User E-Sign Co-Sign Detail Recorded Client Recorded Date Recorded By Document 02/15/18 09:48 DV [id number] 02/15/18 09:53 DV 02/15/18 09:48 Wound Center Nurse 2 #2 left medial heel -Time 09:51 -Correct Patient Yes -Procedure Performed No -Post Debridement Size (cm) - Length 0 -Post Debridement Size (cm) - Width 0 -Post Debridement Size (cm) - Depth 0 -Total Square Cm 0 -Wound/Ulcer Outcome Healed- Epithelialized No debridement was completed today Assessment/Plan Assessment: Peripheral vascular occlusive disease. Peripheral arterial occlusive disease Plan: Referral to Dr. Alvarez. Continue wearing compression stockings. Follow-up as needed discharge from the wound center
--- NOTE | 2018-02-15 10:17 | PN.PCM_ITS ---
(1) Peripheral arterial occlusive disease Status: Acute Current Visit: No Code(s): I77.9 - Disorder of arteries and arterioles, unspecified Type of Wound Date of Service: 02/15/18 Chief Complaint: Follow-up left lower santillna scab and left posterior heel papule. History of Wound: 72-year-old white male who has lost considerable amount of weight. Does not suffer from edema of the lower extremities but does complain of coldness in his lower extremities. Had vascular studies done in November that showed some incompetence at the GSV bilaterally with reflux greater than 0.5 seconds. Patient self heard here for a scabbed area on his left lower santillan and a looks like an infected slight insect bite on his left lateral heel. Slight in stature lives in a house takes care of the yard doing pretty good sees Dr. Gan on a regular basis. Refer to Dr. Alvarez for some vascular evaluation and patient will be discharged from the wound center. Progress of Wound: There is no open areas to be evaluated patient has no edema still wears his 20-30 compression stockings from last visit. Coloring of the legs looks good feet up to mid calf do feel cool to touch. Arterial study shows some diminished artery flow to the digits. Patient wears either work boots or dress shoes never tennis shoes. We will have him follow-up with Dr. Alvarez and discharge from the wound center. - Physical Exam Vital Signs Temp Pulse Resp BP 96.2 F L 51 L 16 182/96 H 02/15/18 08:59 02/15/18 08:59 02/15/18 08:59 02/15/18 08:59 General: Oriented x3, Cooperative, Well developed HEENT: Atraumatic, PERRLA Oral: Moist Mucosa Neck: Supple, No JVD Lungs: Clear to auscultation, Normal air movement Cardiovascular: Regular rate, Regular Rhythm Abdomen: Bowel Sounds Present, Soft, Non Tender, No Hepato-splenomegaly Extremities: No clubbing, No edema Skin: No rashes, No breakdown Wound Measurements and Assessment WC - Nurse 1 - General Ulcer Measurement Start: 02/15/18 08:58 Freq: Status: Active Protocol: Activity Type Activity Date Activity User E-Sign Co-Sign Detail Recorded Client Recorded Date Recorded By Document 02/15/18 08:59 [id number] 02/15/18 09:25 CS 02/15/18 08:59 Wound Center Nurse 1 [Ulcer Assessment] #2 left medial heel -Combined with other wound No -Current Size (cm) - Length 0.3 -Current Size (cm) - Width 0.3 -Current Size (cm) - Depth 0.1 -Total Square Cm 0.09 -Date of Last Picture (Recall this 02/15/18 field) -Photo Taken Yes -Epithelialization None Present -Tunneling No -Undermining/Tunneling No -Circular Undermining No -Classification - Thickness Partial Thickness -Exudate Amt None Present (0 %) -Wound Margin Distinct, Outline Attached -Granulation Amt None Present (0 %) -Granulation Quality N/A -Slough/Fibrin Yes -Necrosis Amt None Present (0 %) -Necrotic Tissue Type Adherent Slough -Structure Exposed N/A -Texture (Frances-wound Skin Appearance) Assessed -Moisture (Frances-wound Skin Appearance No Abnormality ) Assessed -Color (Frances-wound Skin Appearance) Assessed Erythema -Temperature (Frances-wound Skin No Abnormality Appearance) (Pt Warm) -Tenderness on Palpation (Frances-wound No Skin Appearance) -Ulcer Cleansing Rinsed/ Irrigated with Saline -Foul Odor after Cleansing No -Anesthetic Used 4% Lidocaine Solution #1 left santillan -Combined with other wound No [Edema Assessment] -Lower Limb Edema Present No -Right Calf (cm) 30.5 -Right Ankle (cm) 21.5 -Left Calf (cm) 30.5 -Left Ankle (cm) 21.0 WC - Nurse 2 - General Ulcer CM Notes Start: 02/15/18 08:58 Freq: Status: Active Protocol: Activity Type Activity Date Activity User E-Sign Co-Sign Detail Recorded Client Recorded Date Recorded By Document 02/15/18 09:48 DV [id number] 02/15/18 09:53 DV 02/15/18 09:48 Wound Center Nurse 2 [Procedure/Treatment] #2 left medial heel -Time 09:51 -Correct Patient Yes -Procedure Performed No -Post Debridement Size (cm) - Length 0 -Post Debridement Size (cm) - Width 0 -Post Debridement Size (cm) - Depth 0 -Total Square Cm 0 -Wound/Ulcer Outcome Healed- Epithelialized [See Physician Procedure note for Specifics] Musculoskeletal: No Tenderness to Palpation of Joints or Extremities Lymphatic: No Cervical, Supraclavicular, or Inguinal Adenopathy Neurological: Cranial nerves II-XII grossly intact, Neuro grossly intact Psych/Mental Status: Normal Affect, Appropriate Debridement Note Post-Debridement Measurements/Treatment WC - Nurse 2 - General Ulcer CM Notes Start: 02/15/18 08:58 Freq: Status: Active Protocol: Activity Type Activity Date Activity User E-Sign Co-Sign Detail Recorded Client Recorded Date Recorded By Document 02/15/18 09:48 DV [id number] 02/15/18 09:53 DV 02/15/18 09:48 Wound Center Nurse 2 #2 left medial heel -Time 09:51 -Correct Patient Yes -Procedure Performed No -Post Debridement Size (cm) - Length 0 -Post Debridement Size (cm) - Width 0 -Post Debridement Size (cm) - Depth 0 -Total Square Cm 0 -Wound/Ulcer Outcome Healed- Epithelialized No debridement was completed today Assessment/Plan Assessment: Peripheral vascular occlusive disease. Peripheral arterial occlusive disease Plan: Referral to Dr. Alvarez. Continue wearing compression stockings. Follow- up as needed discharge from the wound center
== END 2018-03-02 23:59 ==
LOC: WC 08:41
PROVIDERS: Family Provider Family Medicine; PCP Family Medicine; Visit Provider Nurse Practitioner
DX: I77.9 Disorder of arteries and arterioles, unspecified (principal); R09.89 Other specified symptoms and signs involving the circulatory and respiratory systems; I99.8 Other disorder of circulatory system
CPT/HCPCS: 99212; G0463

== ENCOUNTER 2018-04-30 13:34 | Emergency (ER) | payer MEDICARE, SELFPAY ==
[2018-04-30 13:35] VITALS: BP 172/86; PULSE 61; RESP 16; TEMP 37.1; O2SAT 98; BMI 21.4
--- NOTE | 2018-04-30 16:07 | ED.VISSUMM ---
- ER Visit Summary Date of Service: 04/30/18 Chief Complaint: Right axillary abscess History of Present Illness: The patient is a [address] Bertram Gan III. He is a poor informant. He reports that he has an abscess in his right axilla that began approximately 2 weeks ago. He describes a pinching pain. Reports pain is 6 out of 10 at worst and 4-10 currently. Is worsened by touching and relieved by rest. He denies any constitutional symptoms. No fever, chills, nausea, or vomiting Physical Examination: Vitals: Stable. Afebrile. General: Well-nourished and well-developed. Head: Normocephalic atraumatic. Neck: Supple, no lymphadenopathy. No JVD. Nontender. Cardiovascular: Regular rate and rhythm. No murmurs. Respiratory: No respiratory distress. Clear to auscultation bilaterally. Abdominal: Soft, nontender, nondistended, normal bowel sounds. No guarding, rebound, or peritoneal signs. Back: Nontender. Extremities: Approximately 1.5 cm in diameter superficial abscess in his right axilla. This appears to be a sebaceous cyst.. Skin: Normal color, no rash. Neurologic: Alert and oriented ?3. Cranial nerves II through XII are intact. Normal strength and sensation. Psych: Normal affect. Emergency Department Course and Treatment: Patient was treated with [place] and Zofran. He had an I&D performed. He tolerated it well. Treatment Plan: Patient be discharged [place] and Colace. Instructed for Dr. Wilhelm in 2 days for a wound check. Return to the emergency department for any worsening symptoms. Disposition: To home in improved and stable condition. Impression: 1. Right axillary sebaceous cyst. 2. I&D. Procedure Note: Sebaceous cyst was cleansed with chlorhexidine soap. Anesthetized with 1% lido lidocaine without epinephrine. A small amount of purulent material and caseous material returned. Curved hemostats were used to break up loculations. The wound was copiously irrigated with normal saline. It was loosely packed with iodoform gauze. The patient tolerated it well. This note was generated with [employer] dictation software. It may contain incorrect words, spelling, and punctuation that were not noted in review of the chart prior to signing ED Disposition - Plan for ED Patient: Disposition: Home or Assisted Living Chief Complaint: Abscess Instructions: ED Cyst Sebaceous Infec IandD Prescriptions: Hydrocodone Bitart/Apap 5-325 [[place] 5MG-325MG] 1 tablet PO Q4H PRN PRN 2 Days #6 tablet PRN Reason: Pain Referrals: Js Baker MD [STAFF PHYSICIAN] - 2 Days for wound check
[2018-04-30] MEDS: HYDROcodone Bitartrate/Apap 5/325 Tablet PO (16:10)
[2018-04-30] MEDS: Ondansetron ODT 4 MG Tablet PO (16:10)
[2018-04-30 17:10] VITALS: BP 118/74; PULSE 71; RESP 15; O2SAT 98
[2018-04-30 17:53] VITALS: BP 131/69; PULSE 72; RESP 15; O2SAT 99
== END 2018-04-30 17:55 | disposition home or self-care (01) ==
PROVIDERS: Emergency Provider Emergency Medicine; Family Provider Family Medicine; PCP Family Medicine
DX: L72.3 Sebaceous cyst (principal); L02.411 Cutaneous abscess of right axilla; N18.9 Chronic kidney disease, unspecified; Z79.1 Long term (current) use of non-steroidal anti-inflammatories (NSAID); Z79.899 Other long term (current) drug therapy
CPT/HCPCS: 10060; 99284

== ENCOUNTER 2018-09-23 13:13 | Outpatient (RCR) | payer MEDICARE, SELFPAY | END 2018-10-03 23:59 | LOC: WC 13:13 | PROVIDERS: Family Provider Family Medicine; PCP Family Medicine; Visit Provider Surgery | DX: Z09 Encounter for follow-up examination after completed treatment for conditions other than malignant neoplasm (principal) ==

== ENCOUNTER 2019-10-27 15:44 | Emergency (ER) | payer MEDICARE, SELFPAY ==
[2019-10-27 15:46] VITALS: BP 198/89; PULSE 53; RESP 16; TEMP 36.6; O2SAT 99; BMI 18.7
--- NOTE | 2019-10-27 16:40 | ED.DCSUM_ITS ---
History of Present Illness Chief Complaint: Laceration Informant: Patient Narrative: Patient sustained a right thumb laceration on a knife. Unknown last tetanus. Bleeding controlled. Past Medical History - Allergies and Home Meds Allergies/Adverse Reactions: Allergies amoxicillin Allergy (Verified 10/27/19 15:47) Unknown propoxyphene [From Darvon] Allergy (Verified 10/27/19 15:49) Unknown BACTRIM Allergy (Uncoded 10/27/19 15:47) Unknown ERYTHROMYCIN Allergy (Uncoded 10/27/19 15:47) Unknown Primary Care Physician: Bertram Gan III, MD [Primary Care Provider] - Smoking Status: Former smoker Review of Systems General: Denies: Chills, Fever, Sweats Eyes: Denies: Visual changes - bilaterally, Diplopia ENT: Denies: Rhinorrhea, Sore throat Cardiovascular: Denies: Chest pain, Palpitations Respiratory: Denies: Dyspnea, Cough, Dyspnea on exertion Gastrointestinal: Denies: Abdominal pain, Nausea, Vomiting, Diarrhea, Melena, Hematochezia Genitourinary: Denies: Dysuria, Hematuria, Frequency Musculoskeletal: Denies: Back pain, Extremity Pain Skin: Denies: Rash, Wounds Neurological: Denies: Headache, Weakness, Numbness Physical Exam Vital Signs/Narrative: Vital Signs Temp Pulse Resp BP Pulse Ox 10/27/19 15:46 97.8 F 53 L 16 198/89 H 99 Inital Vital Signs reviewed: Yes General: Well nourished, Well developed, No Acute Distress Head: Normocephalic, Atraumatic Eyes: Perrl, EOMI ENT: Moist mucous membranes, No rhinorrhea Neck: Supple, Nontender Cardiovascular: Regular rate, Regular rhythm, No murmurs Respiratory: No distress, CTA bilaterally, Chest nontender Abdomen: Soft, Nontender, Nondistended, Normal bowel sounds Back: Nontender, Normal Inspection Extremities: Nontender, No edema Skin: Normal color, No rash, Trauma - There is a 1.5 cm C-shaped laceration over the tip of the right thumb. No nail involvement. Bleeding controlled. Neurological: Alert, Oriented x3, Cranial nerves II-XII grossly intact, Normal Strength, Normal Sensation Psychological: Normal affect, Normal Mood Diagnostic/Tx/Re-eval - Medical Decision Making The wound was locally anesthetized using 1% lidocaine. Was washed with Shur- Clens and explored. 3 simple interrupted 5-0 sutures were used to close the wound. Tetanus is updated with Adacel. Wound care discussed with patient. ED Disposition - Plan for ED Patient: Disposition: Home or Assisted Living Diagnosis: Laceration of thumb Instructions: LACERATION, Hand Referrals: Bertram Gan III, MD [Primary Care Provider] - 7 Days for suture removal
[2019-10-27] MEDS: Diphth,Pertuss(Acell),Tet Vac 0.5 ML Vial IM (16:50)
[2019-10-27 16:56] VITALS: BP 167/84
== END 2019-10-27 17:12 | disposition home or self-care (01) ==
LOC: ED 17:07
PROVIDERS: Emergency Provider Emergency Medicine; PCP Family Medicine
DX: S61.011A Laceration without foreign body of right thumb without damage to nail, initial encounter (principal); W26.0XXA Contact with knife, initial encounter; Y93.9 Activity, unspecified; Y92.9 Unspecified place or not applicable; Y99.9 Unspecified external cause status; Z23 Encounter for immunization; Z79.1 Long term (current) use of non-steroidal anti-inflammatories (NSAID); Z79.899 Other long term (current) drug therapy; Z87.891 Personal history of nicotine dependence
CPT/HCPCS: 12001; 90471; 90715; 99285

== ENCOUNTER 2020-01-17 12:36 | Emergency (ER) | payer MEDICARE, SELFPAY ==
[2020-01-17 12:38] VITALS: BP 195/108; PULSE 78; RESP 17; TEMP 36.8; O2SAT 97; BMI 21.4
--- NOTE | 2020-01-17 12:50 | EKG12_ITS ---
Test Reason : Blood Pressure : / mmHG Vent. Rate : 068 BPM Atrial Rate : 068 BPM P-R Int : 156 ms QRS Dur : 076 ms QT Int : 382 ms P-R-T Axes : 034 044 043 degrees QTc Int : 406 ms Normal sinus rhythm Left ventricular hypertrophy Nonspecific ST and T wave abnormality Abnormal ECG Confirmed by CUCA MACKENZIE, SALUD ([id number]), image editor STEPHANE ANGELES ([id number]) on 01/20/2020 3:23:49 PM Referred By: ANDREAS Confirmed By:SALUD THURMAN MD
--- NOTE | 2020-01-17 12:50 | RAD_ITS ---
STUDY: X-RAY CHEST REASON FOR EXAM: Male, 74 years old. CHF TECHNIQUE: Single AP portable view of the chest. COMPARISON: Previous study of 04/10/2017 FINDINGS: The lungs are clear and expanded. There is no demonstrated pleural abnormality. Normal size heart. Normal mediastinum and jorje. Normal visualized pulmonary arteries. There are calcified plaques of the aortic arch. There are diffuse degenerative changes of the visualized thoracic spine. Normal visualized ribs, clavicles, and shoulders. There is no demonstrated abnormality of the visualized soft tissue structures of the upper abdomen. RAD/Chest 1 View (Portable) IMPRESSION: Calcified plaques of the aortic arch. Degenerative changes of the thoracic spine. No acute cardiopulmonary disease process is seen. Chest findings are stable in the interval. Electronically Signed: Salas Cueto MD at 14:00 EDT , Service support ,
[2020-01-17 13:39] VITALS: BP 204/113; PULSE 72; RESP 17; O2SAT 99
[2020-01-17 13:43] LABS: Absolute Lymphocyte Count 1.15 X10^3/uL (0.83-4.51); Absolute Neutrophil Count 5.3 X10^3/uL (2.0-7.7); Basophil# 0.04 X10^3/uL; Basophil% 0.6 % (0-1); Eosinophil# 0.16 X10^3/uL; Eosinophils% 2.2 % (0-5); Hematocrit 40.9 % (40-54); Hemoglobin 13.8 g/dL (13.0-16.5); Lymphocyte # 1.15 X10^3/ul (4.0); Lymphocyte % 16.1 % (19-41); Mean Corp Hgb Conc 33.7 g/dL (32-36); Mean Corpuscular Hgb 31.8 pg (27.0-32.0); Mean Corpuscular Volume 94.2 fL (80-94); Mean Platelet Vol. 9.3 fl (6.2-12.0); Monocyte# 0.54 X10^3/uL; Monocyte% 7.5 % (0-10); NRBC Flagged by Analyzer 0 % (0-5); Neutrophil # 5.26 X10^3/uL (2.7-7.7); Neutrophil % 73.5 % (47-70); Platelet Count 148 K/mm3 (150-450); RBC Distribution Width CV 13.8 % (11.6-14.6); RBC Distribution Width SD 46.2 fl (35.1-43.9); Red Blood Count 4.34 M/mm3 (4.6-6.2); White Blood Count 7.2 K/mm3 (4.4-11.0)
[2020-01-17 13:53] LABS: AST(SGOT) 18 U/L (15-37); Alanine Aminotransfer ALT/SGPT 23 U/L (16-61); Albumin, Serum 3.3 g/dL (3.2-5.0); Alkaline Phosphatase 94 U/L (45-117); Anion Gap 4 (5-15); BUN 24 mg/dL (7-18); BUN/Creat Ratio 24.6 RATIO (10-20); Calcium,Total 8.3 mg/dL (8.5-10.1); Chloride 115 mmol/L (98-107); Creatinine, Serum 0.98 mg/dL (0.70-1.30); EST Glomerular Filtration Rate 80 mL/min (>60); Est Glom Filt Rate - Afr Amer 97 mL/min (>60); Estimated Creatinine Clearance 61.77 ml/min; Globulin 3.3 g/dL (2.2-4.2); Glucose 106 mg/dL (74-106); Protein, Total 6.6 g/dL (6.4-8.2); Sodium Level 146 mmol/L (136-145)
[2020-01-17 13:59] LABS: BNP,B-Type NATRIURETIC PEPTIDE 198.6 pg/mL (0-100)
--- NOTE | 2020-01-17 14:33 | ED.DCSUM_ITS ---
- ER Visit Summary Date of Service: 01/17/20 Chief Complaint: Lower extremity swelling History of Present Illness: The patient is a [address] Bertram Gan. He reports he has lower extremity swelling this been present for months and is increased over the past week. He does not do daily weights. He does admit that he had similar symptoms previously. He is supposed to have compressive stockings on. He reports that he is not when he is in a long time. Patient denies any chest pain or shortness of breath. He denies orthopnea or PND. Physical Examination: Vitals: Stable. Afebrile. General: Well-nourished and well-developed. Head: Normocephalic atraumatic. Neck: Supple, no lymphadenopathy. No JVD. Nontender. Cardiovascular: Regular rate and rhythm. 2 out of 6 systolic murmur. Respiratory: No respiratory distress. Clear to auscultation bilaterally. Abdominal: Soft, nontender, nondistended, normal bowel sounds. No guarding, rebound, or peritoneal signs. Back: Nontender. Extremities: Nontender, 3+ pitting edema lower extremities bilaterally. There are 3 small superficial vesicles on the right. These areas are weeping. There is minimal erythema. There is no evidence of cellulitis. There is no induration or fluctuance.. Skin: Normal color, no rash. Neurologic: Alert and oriented ?3. Cranial nerves II through XII are intact. Normal strength and sensation. Psych: Normal affect. Test Results: EKG is sinus at [address] changes. Is unchanged from 2017. Troponin is negative. BT [employer]TERNAT[employer] FINANCING SPECIALIST is 198.6. LFTs are normal. Chem-7 shows a sodium of 146, potassium 3.0, chloride 115, BUN of 24, calcium of 8.3. CBC shows platelets 148, segmented for 74, lymphocytes of 16. Chest x-ray shows chronic changes. Emergency Department Course and Treatment: Patient was treated with a dose of K- Dur p.o. here. I had a prolonged discussion with him he does not believe he is been on diuretics in the past. His blood pressure is elevated here. However, he does not want to be admitted to the hospital. He also does not want to have a dose of Lasix prior to being discharged because he is worried that he will have to urinate on the way home. Treatment Plan: Patient will be discharged with instructions to take Lasix 20 mg a day. He also be placed on K-Dur. Instructed begin wearing his compression stockings. Follow-up with his primary care physician in 3 to 5 days for another exam. Return to the emergency department for any worsening symptoms. Disposition: To home in improved and stable condition. Impression: 1. Hypokalemia. 2. Peripheral edema. This note was generated with [employer] dictation software. It may contain incorrect words, spelling, and punctuation that were not noted in review of the chart guevara or to signing ED Disposition - Plan for ED Patient: Disposition: Home or Assisted Living Instructions: ED Peripheral Edema, Bilateral Prescriptions: Potassium Chloride [K-Dur] 40 meq PO BID #28 tab Prescription Printed Furosemide [Lasix] 20 mg PO DAILY #7 tab Prescription Printed Referrals: Bertram Gan III, MD [Primary Care Provider] - 3-5 Days
[2020-01-17 14:57] VITALS: BP 227/98; PULSE 65; RESP 13; O2SAT 99
--- NOTE | 2020-01-17 14:58 | ED.RN ---
REVIEWED D/C INSTRUCTIONS, FOLLOW UP CARE, AND S/S THAT WOULD WARRANT A RETURN TO THE ED WITH PT. PT VERBALIZED AN UNDERSTANDING AND DENIES FURTHER QUESTIONS FOR THIS RN. PT SKIN P/W/D, RESP EVEN AND UNLABORED, PT A&O X 3, NO DISTRESS NOTED. PT AMBULATED OUT OF ED, GAIT STEADY.
== END 2020-01-17 14:59 | disposition home or self-care (01) ==
LOC: ED 13:48
PROVIDERS: Emergency Provider Emergency Medicine; PCP Family Medicine
DX: E87.6 Hypokalemia (principal); R60.0 Localized edema; I10 Essential (primary) hypertension; R51 Headache; Z79.899 Other long term (current) drug therapy
CPT/HCPCS: 71045; 80053; 83880; 84484; 85025; 93005; 99285; A4216

== ENCOUNTER 2020-03-13 20:22 | Emergency (ER) | payer MEDICARE, SELFPAY ==
[2020-03-13 20:23] VITALS: BP 165/80; PULSE 97; RESP 16; TEMP 38.2; O2SAT 98; BMI 21.4
[2020-03-13 20:25] VITALS: BP 165/80; PULSE 97; RESP 16; TEMP 38.2; O2SAT 98
[2020-03-13 21:25] VITALS: BP 148/69; PULSE 87; RESP 18; TEMP 37.8; O2SAT 98
[2020-03-13 21:48] LABS: Absolute Lymphocyte Count 0.82 X10^3/uL (0.83-4.51); Basophil# 0.02 X10^3/uL; Basophil% 0.2 % (0-1); Eosinophil# 0.03 X10^3/uL; Eosinophils% 0.3 % (0-5); Hematocrit 35.2 % (40-54); Hemoglobin 11.5 g/dL (13.0-16.5); Lymphocyte # 0.82 X10^3/ul (4.0); Lymphocyte % 7.8 % (19-41); Mean Corp Hgb Conc 32.7 g/dL (32-36); Mean Corpuscular Hgb 31.3 pg (27.0-32.0); Mean Corpuscular Volume 95.7 fL (80-94); Mean Platelet Vol. 9.3 fl (6.2-12.0); Monocyte# 0.65 X10^3/uL; Monocyte% 6.2 % (0-10); NRBC Flagged by Analyzer 0 % (0-5); Neutrophil # 8.97 X10^3/uL (2.7-7.7); Neutrophil % 85.2 % (47-70); Platelet Count 153 K/mm3 (150-450); RBC Distribution Width CV 14.2 % (11.6-14.6); RBC Distribution Width SD 49.5 fl (35.1-43.9); Red Blood Count 3.68 M/mm3 (4.6-6.2); White Blood Count 10.5 K/mm3 (4.4-11.0)
[2020-03-13 21:58] LABS: Anion Gap 7 (5-15); BUN 27 mg/dL (7-18); BUN/Creat Ratio 25.7 RATIO (10-20); Calcium,Total 8.1 mg/dL (8.5-10.1); Chloride 110 mmol/L (98-107); Creatinine, Serum 1.05 mg/dL (0.70-1.30); EST Glomerular Filtration Rate 74 mL/min (>60); Est Glom Filt Rate - Afr Amer 89 mL/min (>60); Glucose 191 mg/dL (74-106); Potassium 3.3 mmol/L (3.5-5.1); Sodium Level 143 mmol/L (136-145)
--- NOTE | 2020-03-13 21:59 | ED.DCSUM_ITS ---
History of Present Illness Chief Complaint: Cellulitis Narrative: Patient is a 74-year-old male who presents with a right hand infection. He is a poor informant. He was brought in by a friend. This friend recently moved back to the area and has been checking on him. He states that he has not really been taking care of himself. There is no food in the house. The patient does not know what medications he is prescribed but states he has not been taking them. His friend was visiting and noted that his right hand was swollen red and hot. The patient states this may have been going on for a month. There is a small wound on the right index finger. No history of prior similar symptoms. No fevers or vomiting. Past Medical History - Allergies and Home Meds Allergies/Adverse Reactions: Allergies amoxicillin Allergy (Verified 03/13/20 20:25) Unknown propoxyphene [From Darvon] Allergy (Verified 03/13/20 20:25) Unknown BACTRIM Allergy (Uncoded 03/13/20 20:25) Unknown ERYTHROMYCIN Allergy (Uncoded 03/13/20 20:25) Unknown Primary Care Physician: Bertram Gan III, MD [Primary Care Provider] - Prior records reviewed: Yes Past Medical History: - - Unknown medical history Smoking Status: Never smoker Review of Systems All systems negative except as indicated General: Denies: Fever Cardiovascular: Denies: Chest pain Respiratory: Denies: Dyspnea Gastrointestinal: Denies: Abdominal pain, Nausea, Vomiting Musculoskeletal: Reports: Extremity Pain - Right hand pain redness and swelling. Denies: Myalgias, Arthralgias Skin: Denies: Rash Physical Exam Vital Signs/Narrative: Vital Signs Temp Pulse Resp BP Pulse Ox 03/13/20 21:25 100.1 F H 87 18 148/69 H 98 03/13/20 20:25 100.8 F H 97 16 165/80 H 98 03/13/20 20:23 100.8 F H 97 16 165/80 H 98 Inital Vital Signs reviewed: Yes General: Well nourished Head: Normocephalic Eyes: EOMI ENT: Moist mucous membranes Neck: Supple Cardiovascular: Regular rate, Regular rhythm Respiratory: No distress, CTA bilaterally Abdomen: Soft Extremities: - - Patient has erythema of the right hand and index finger which extends to the wrist with lymphangitic streaking up the forearm, the right upper extremity is hot to the touch his right index finger has fusiform swelling and is held in flexion, he does have some pain with extension no drainage at this time Skin: Normal color Neurological: Alert Psychological: Normal affect Diagnostic/Tx/Re-eval Impressions Hand X-Ray 03/13/20 21:59 IMPRESSION: Degenerative arthrosis. Diffuse soft tissue swelling of the second finger. Electronically Signed: Judd De Jesus MD at 22:20 EDT Tel , Service support , 03/13/20 21:59 Hand Min 3 Views [RAD] Stat Laboratory Results 03/13/20 03/13/20 03/13/20 20:55 20:55 20:55 WBC 10.5 RBC 3.68 L Hgb 11.5 L Hct 35.2 L MCV 95.7 H MCH 31.3 MCHC 32.7 RDW Std Deviation 49.5 H RDW Coeff of Josep 14.2 Plt Count 153 MPV 9.3 Immature Gran % (Auto) 0.300 Neut % (Auto) 85.2 H Lymph % (Auto) 7.8 L Alexander % (Auto) 6.2 Eos % (Auto) 0.3 Baso % (Auto) 0.2 Absolute Neuts (auto) 9.0 H Absolute Lymphs (auto) 0.82 L Nucleated RBC % 0 Sodium 143 Potassium 3.3 L Chloride 110 H Carbon Dioxide 26.0 Anion Gap 7 BUN 27 H Creatinine 1.05 Estim Creat Clear Calc 59.10 Est GFR (MDRD) Af Amer 89 Est GFR (MDRD) Non-Af 74 BUN/Creatinine Ratio 25.7 H Glucose 191 H Lactic Acid 1.7 Calcium 8.1 L - Medical Decision Making Laboratory studies as above essentially unremarkable. Hand x-ray shows soft tissue swelling. Patient does have a severe cellulitis of the left hand and does have some findings to suggest flexor tenosynovitis. He may need incision and drainage of the hand. I attempted to contact Dr. Trevino of plastic surgery but was unable to contact him. Therefore I did feel the patient required transfer to a hospital with hand surgery services available. Patient was accepted to [facility] by the emergency physician for an orthopedic consult. Patient was given IV clindamycin and vancomycin here. ED Disposition - Plan for ED Patient: Disposition: [facility] Diagnosis: Cellulitis of hand Referrals: Bertram Gan III, MD [Primary Care Provider] -
--- NOTE | 2020-03-13 21:59 | RAD_ITS ---
STUDY: X-RAY - RIGHT HAND REASON FOR EXAM: Male, 74 years old. Redness and edema of the second digit. TECHNIQUE: 3 view(s) of the hand. COMPARISON: None. FINDINGS: Normal radiocarpal articulation. Normal distal radioulnar joint. Normal visualized carpal bones. Normal carpal articulations There is degenerative arthrosis of the carpometacarpal articulation of the thumb with lateral subluxation of the first metacarpus. There may be an old fracture of the base of the first metacarpal. Normal second through fifth carpometacarpal joints. Normal metacarpi. Normal metacarpophalangeal joint of the thumb. Normal interphalangeal joint of the thumb. Normal proximal and distal phalanges of the thumb. Normal metacarpophalangeal joints of the second through fifth fingers. Normal proximal and distal interphalangeal joints of the second through fifth fingers. Normal phalanges of the second through fifth fingers. There is diffuse soft tissue swelling of the second finger. RAD/Hand Min 3 Views IMPRESSION: Degenerative arthrosis. Diffuse soft tissue swelling of the second finger. Electronically Signed: Judd De Jesus MD at 22:20 EDT Tel , Service support ,
[2020-03-13 22:02] LABS: Lactic Acid 1.7 mmol/L (0.4-1.9)
[2020-03-13] MEDS: 0.9% Normal Saline 1,000 ML 999 ML IV (22:13)
[2020-03-13] MEDS: Acetaminophen 500 MG Tablet 1000 MG PO (22:14)
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
[2020-03-13 22:16] VITALS: BP 160/58; PULSE 79; RESP 16; TEMP 37.5; O2SAT 97
[2020-03-13 23:07] VITALS: BP 178/64; PULSE 73; PULSE 76; RESP 16; TEMP 37.1; O2SAT 98
[2020-03-13] MEDS: Vancomycin IV 1,000 MG/200 ML BAG 200 MG IV (23:37)
[2020-03-14 00:30] VITALS: BP 119/44; PULSE 71; RESP 16; TEMP 37.1; O2SAT 97
[2020-03-14 02:05] VITALS: BP 109/77; PULSE 65; RESP 16; O2SAT 96
--- NOTE | 2020-03-16 15:08 | CM.ED ---
Social Work Telephone call from Nicole at [facility]. Nicole inquiring as to patient disposition as patient friends called in worried about patient as patient was not at home and [facility] informed patient friends that patient discharged. This social media marketing analyst updated Nicole that patient was transferred to [facility]. Nicole thanking this social media marketing analyst. Rachelle BEAR, TEDDY
== END 2020-03-14 02:20 | disposition short-term general hospital (02) ==
PROVIDERS: Emergency Provider Emergency Medicine; PCP Family Medicine
DX: L03.114 Cellulitis of left upper limb (principal)
CPT/HCPCS: 36415; 73130; 80048; 83605; 85025; 87040; 96361; 96365; 96367; 99283; J7030; A4216

== ENCOUNTER 2021-03-11 16:48 | Inpatient (IN) | payer MEDICARE, MEDICAID, SELFPAY ==
[2021-03-11] VITALS (11 sets, daily range): BP systolic 156–205; BP diastolic 87–121; PULSE 55–75; RESP 10–21; TEMP 36.2–36.7; O2SAT 94–99; BMI 25.2; BMI 24.5
--- NOTE | 2021-03-11 17:02 | EX.ED.DYSGE1 ---
HPI History of Present Illness Chief Complaint: Alt LOC Informant: patient and EMS Narrative Narrative: Patient is a 75-year-old male who presents to the emergency department from long-term for altered mental status. Apparently patient is normally alert and oriented. Today he was walking down the hallway with no pants on. The thought that he was confused. They wanted to check lab work and he became combative with them so they sent him to the emergency department. On arrival to the emerge department patient is alert and oriented. He has no complaints. He denies feeling confused except as to why he is in the emergency department. He denies any headache, vision changes. No speech issues. Was reported that the patient might had some slurred speech. He denies any weakness or loss of sensation in the extremities. No chest pain, shortness of breath or heart palpitations. No abdominal pain or nausea/vomiting. No urinary symptoms. Patient denies any history of heart attacks, strokes or thromboembolism. He denies any fevers or chills. The report is that he is normally hypertensive. He does have a history of diabetes as well as paranoid personality disorder. [facility] Medical History (Updated 03/11/21 @ 23:[address] Jorge Luis Auguste, ) Cellulitis of right lower limb COVID-19 Essential hypertension Hyperlipemia Muscle weakness (generalized) Need for assistance with personal care Paranoid personality disorder Type 2 diabetes mellitus without complication Home Medications acetaminophen 650 mg PO Q4H PRN 03/11/21 [History Last Taken Unknown] amlodipine 10 mg PO DAILY 03/11/21 [History Last Taken Unknown] buspirone 10 mg PO BID 03/11/21 [History Last Taken Unknown] cholecalciferol (vitamin D3) 50 mcg PO DAILY 03/11/21 [History Last Taken Unknown] clonidine 1 patch TRANSDERMAL QWEEK 03/11/21 [History Last Taken Unknown] famotidine [Pepcid] 20 mg PO QHS 03/11/21 [History Last Taken Unknown] ferrous sulfate 325 mg PO BID 03/11/21 [History Last Taken Unknown] hydrochlorothiazide 12.5 mg PO DAILY 03/11/21 [History Last Taken Unknown] lisinopril 40 mg PO DAILY 03/11/21 [History Last Taken Unknown] metoprolol succinate 100 mg PO QHS 03/11/21 [History Last Taken Unknown] naproxen [Naprosyn] 500 mg PO BID PRN 03/11/21 [History Last Taken Unknown] polyethylene glycol 17 ea MISCELLANEOUS DAILY PRN 03/11/21 [History Last Taken Unknown] potassium chloride 20 meq PO DAILY 03/11/21 [History Last Taken Unknown] tramadol 50 mg PO BID PRN 03/11/21 [History Last Taken Unknown] vitamin O86-uvphv acid 1 tab PO DAILY 03/11/21 [History Last Taken Unknown] Allergy/AdvReac Type Severity Reaction Status Date / Time amoxicillin Allergy Unknown Verified 03/11/21 16:49 erythromycin base Allergy NEEDS Verified 03/11/21 19:01 FOLLOW-UP propoxyphene [From Darvon] Allergy Unknown Verified 03/11/21 16:49 sulfamethoxazole Allergy NEEDS Verified 03/11/21 19:01 [From Bactrim] FOLLOW-UP trimethoprim [From Bactrim] Allergy NEEDS Verified 03/11/21 19:01 FOLLOW-UP Surgical History (Updated 03/11/21 @ 16:59 by Kemar Woods) History of appendectomy Social History Smoking Status: Never smoker ROS ROS ED Constitutional Constitutional ED: Denies chills or fever(s) Eyes Eyes: Denies change in vision ENT ENT ED: Denies epistaxis or rhinorrhea Cardiovascular Cardiovascular: Denies chest pain or palpitations Respiratory/Chest Respiratory/Chest: Denies cough, dyspnea or dyspnea on exertion Gastrointestinal Gastrointestinal: Denies abdominal pain, diarrhea, nausea or vomiting Genitourinary Genitourinary ED: Denies dysuria, hematuria or urinary frequency Musculoskeletal Musculoskeletal: Denies back pain or neck pain Integumentary Denies rash Neurologic Neurologic: Denies dizziness, headache(s) or weakness EXAM Physical Exam Const Vital Signs: 03/11/21 16:50 03/11/21 17:00 03/11/21 18:13 Temperature 98.0 F Temperature Source Temporal Pulse Rate 55 L 60 Respiratory Rate 14 18 Respiratory Pattern Normal Blood Pressure 205/88 H 197/94 H Blood Pressure Mean 127 128 Pulse Ox 98 99 Oxygen Delivery Method Room Air Room Air 03/11/21 19:00 03/11/21 20:00 03/11/21 21:00 Temperature Temperature Source Pulse Rate 72 65 75 Respiratory Rate 18 21 H 17 Respiratory Pattern Blood Pressure 184/101 H 194/98 H 192/121 H Blood Pressure Mean 128 130 144 Pulse Ox 97 95 98 Oxygen Delivery Method Room Air Room Air Room Air 03/11/21 21:31 03/11/21 21:34 Temperature 97.3 F L Temperature Source Temporal Pulse Rate 63 61 Respiratory Rate 18 16 Respiratory Pattern Blood Pressure 156/87 H 156/87 H Blood Pressure Mean 110 110 Pulse Ox 98 97 Oxygen Delivery Method Room Air Room Air Positive well nourished and well developed General Appearance ED: well developed and NAD HEENT Reports normocephalic, head/scalp atraumatic and moist mucous membranes Eyes PERRL and EOMs intact bilaterally Neck supple Resp normal respiratory effort and clear to auscultation bilaterally Auscultation: Negative for rales, rhonchi or wheezes Cardio regular rate, regular rhythm and no murmurs GI normal to inspection, nondistended, normoactive bowel sounds and non-tender Palpation: soft; Negative for guarding or rebound tenderness present Extremity normal to inspection General Extremety ED: Negative for edema or tenderness General Extremity: Negative for edema Neuro oriented x3, CN's II-XII intact bilaterally and no sensory deficits noted Sensorium / Orientation: alert Motor Exam: strength 5/5 throughout Psych mental status grossly normal Skin no rashes or lesions noted MDM MDM MDM Narrative Medical decision making narrative: Patient presents to the ED for confusion at the long-term. Apparently patient is walked out the hallway without any pants on. The report was he had some slurred speech but EMS nor the ED staff appreciated this. He has an 8 score is 0. He has no complaints. He is hypertensive on arrival but otherwise normal vital signs. He is a benign physical exam. He is agreeable to having basic lab work checked as well as CT scan of his head. We will also perform a urinalysis. Patient CT scan did show concern for acute infarct. Again no last known time well. Besides very minor speech issue which I am not sure is chronic or not he does not have any other focal deficits. He is not a TPA candidate. CT angio being performed. This did not show any large vessel occlusion. There is a incidental finding with a sclerotic lesion of his vertebrae. This will need further evaluation and work-up. Patient has been hypertensive and was given a dose of labetalol for this. Will bring into the hospital for further evaluation and management. He understands and is agreeable this plan. Lab Data Labs: Laboratory Results - last 24 hr 03/11/21 03/11/21 03/11/21 17:15 17:15 19:05 WBC 10.2 RBC 5.60 Hgb 17.3 H Hct 50.9 MCV 90.9 MCH 30.9 MCHC 34.0 RDW Std Deviation 43.3 RDW Coeff of Josep 13.0 Plt Count 187 MPV 9.7 Immature Gran % (Auto) 0.300 Neut % (Auto) 76.6 H Lymph % (Auto) 13.0 L [place] % (Auto) 8.0 Eos % (Auto) 1.5 Baso % (Auto) 0.6 Absolute Neuts (auto) 7.8 H Absolute Lymphs (auto) 1.32 Nucleated RBC % 0 Sodium 139 Potassium 3.5 Chloride 104 Carbon Dioxide 27.0 Anion Gap 8 BUN 27 H Creatinine 1.42 H Estim Creat Clear Calc 49.35 Est GFR (MDRD) Af Amer 63 Est GFR (MDRD) Non-Af 52 L BUN/Creatinine Ratio 19.0 Glucose 173 H Calcium 9.2 Total Bilirubin 0.90 AST 15 ALT 16 Alkaline Phosphatase 136 H Total Protein 7.9 Albumin 3.8 Globulin 4.1 Albumin/Globulin Ratio 0.9 Urine Color Yellow Urine Clarity Sl. Cloudy Urine pH 6.0 Ur Specific [place] 1.015 Urine Protein 100 H Urine Glucose (UA) Normal Urine Ketones 15 H Urine Occult Blood 150 H Urine Nitrite Negative Urine Bilirubin Negative Urine Urobilinogen Normal Ur Leukocyte Esterase Negative Urine RBC 5-10 SEEN Urine WBC 0-5 SEEN Ur Squamous Epith Cells 0 SEEN Urine Bacteria 0 SEEN Hyaline Casts 5-10 SEEN Urine Mucus 2+ Radiography Diagnostic Testing: Radiology Impression Brain CT 03/11/21 17:10 IMPRESSION: 1. Possible acute right lentiform nucleus infarct. Confirmatory imaging advised. 2. Moderate chronic small vessel ischemic disease. Electronically Signed: Tiffanie Deras MD at 18:44 EDT Tel , Service support , ADDENDUM: 03/11/21 [id number] IMPRESSION: 1. Possible acute right lentiform nucleus infarct. Confirmatory imaging advised. 2. Moderate chronic small vessel ischemic disease. N.B. : JORGE LUIS AUGUSTE MD , , confirmed on 03/11/2021 18:55:51 (ET) that the healthcare facility has received the radiology report. Electronically Signed: Tiffanie Deras MD at 18:44 EDT Tel , Service support , Head/Neck CTA 03/11/21 19:11 IMPRESSION: 1. Patent cervical and cranial vessels. 2. Mild nonobstructing atherosclerosis. 3. T2 vertebral body sclerotic lesion, unclear etiology. In a male patient PSA is advised to exclude possibility of sclerotic metastasis. Consider bone scan for further imaging assessment. Electronically Signed: Tiffanie Deras MD at 20:30 EDT Tel , Service support , EKG Initial EKG: Attestation: I personally reviewed and interpreted this EKG as follows: (Rate of 53 bpm and a sinus bradycardia. Normal intervals. Normal axis. No significant ST elevations or depressions.) Discharge Plan Dx/Rx/DC Orders Clinical Impression: CVA (cerebral vascular accident), AMS (altered mental status) Disposition Disposition: Acute Care Hospital [facility] Discharge Date/Time: 03/11/21 22:23
--- NOTE | 2021-03-11 17:10 | CT_ITS ---
ACR Level 3 findings have been noted. An addendum which confirms receipt of the report will follow. STUDY: CT BRAIN WITHOUT CONTRAST REASON FOR EXAM: Male, 75 years old. Altered mental status RADIATION DOSAGE (If Supplied By Facility): CTDIvol = ( 44.99 ) mGy, DLP = ( 796.11 ) mGycm TECHNIQUE: Transaxial CT imaging of the brain was performed without administration of intravenous contrast material. Individualized dose optimization techniques were used for this CT. COMPARISON: No relevant priors. FINDINGS: There is an ill-defined hypodensity in the right lentiform nucleus, presumed ischemia, unknown age, possibly acute. There are scattered small chronic white matter infarcts and regions of ischemic chronic hypodensity. There is a small remote left mid stanley radiata infarct. There is no acute intracranial hemorrhage, extra parenchymal fluid collections, hydrocephalus or herniation. CT/Brain/Head without Contrast IMPRESSION: 1. Possible acute right lentiform nucleus infarct. Confirmatory imaging advised. 2. Moderate chronic small vessel ischemic disease. Electronically Signed: Tiffanie Deras MD at 18:44 EDT Tel , Service support ,
--- NOTE | 2021-03-11 17:11 | EKG12_ITS ---
Test Reason : ALT STATUS Blood Pressure : / mmHG Vent. Rate : 053 BPM Atrial Rate : 053 BPM P-R Int : 174 ms QRS Dur : 084 ms QT Int : 468 ms P-R-T Axes : 008 010 102 degrees QTc Int : 439 ms Sinus bradycardia Otherwise normal ECG Confirmed by MATEO MACKENZIE, JACI ([id number]), publications editor SPIKE MCDANIEL ([id number]) on 03/14/2021 1:16:48 PM Referred By: JUAN Confirmed By:JACI GALINDO MD
--- NOTE | 2021-03-11 17:16 | ED.RN ---
THIS RN SPOKE WITH NURSE FROM [facility] THAT WAS TAKING CARE OF THE PATIENT. PER [facility]CF NURSE, PT WAS A+oX3 THIS AM, AND WAS LAST SEEN NORMAL AT 0900. NOTICED INCREASED CONFUSION AND DECREASED APPETITE AT 1200, AND THEN AT 1400 PT WAS FOUND WALKING DOWN THE [place] WITH NO PANTS ON. PT WAS COMBATIVE WHEN THEY TRIED TO DRAW LABS AT [facility]. PT NOW a+OX3, NEGATIVE CINICINATTI PER EMS. NIH 0. NO STROKE TEAM PER DR MARTINEZ VERBAL.
[2021-03-11 17:23] LABS: Absolute Lymphocyte Count 1.32 X10^3/uL (0.83-4.51); Absolute Neutrophil Count 7.8 X10^3/uL (2.0-7.7); Basophil# 0.06 X10^3/uL; Basophil% 0.6 % (0-1); Eosinophil# 0.15 X10^3/uL; Eosinophils% 1.5 % (0-5); Hematocrit 50.9 % (40-54); Hemoglobin 17.3 g/dL (13.0-16.5); Lymphocyte # 1.32 X10^3/ul (0.83-4.51); Mean Corpuscular Hgb 30.9 pg (27.0-32.0); Mean Corpuscular Volume 90.9 fL (80-94); Mean Platelet Vol. 9.7 fl (6.2-12.0); Monocyte# 0.81 X10^3/uL; NRBC Flagged by Analyzer 0 % (0-5); Neutrophil # 7.79 X10^3/uL (2.7-7.7); Neutrophil % 76.6 % (47-70); Platelet Count 187 K/mm3 (150-450); RBC Distribution Width SD 43.3 fl (35.1-43.9); White Blood Count 10.2 K/mm3 (4.4-11.0)
[2021-03-11 17:39] LABS: ALB/GLOB Ratio 0.9 RATIO (0.9-2.4); AST(SGOT) 15 U/L (15-37); Alanine Aminotransfer ALT/SGPT 16 U/L (16-61); Albumin, Serum 3.8 g/dL (3.2-5.0); Alkaline Phosphatase 136 U/L (45-117); Anion Gap 8 (5-15); BUN 27 mg/dL (7-18); Calcium,Total 9.2 mg/dL (8.5-10.1); Chloride 104 mmol/L (98-107); Creatinine, Serum 1.42 mg/dL (0.70-1.30); EST Glomerular Filtration Rate 52 mL/min (>60); Est Glom Filt Rate - Afr Amer 63 mL/min (>60); Estimated Creatinine Clearance 49.35 ml/min; Globulin 4.1 g/dL (2.2-4.2); Glucose 173 mg/dL (74-106); Potassium 3.5 mmol/L (3.5-5.1); Protein, Total 7.9 g/dL (6.4-8.2); Sodium Level 139 mmol/L (136-145)
[2021-03-11 19:10] LABS: Bacteria 0 SEEN /hpf (None Seen); Squamous Epithelial Cells - UA 0 SEEN /hpf (0-5)
--- NOTE | 2021-03-11 19:11 | CT_ITS ---
STUDY: CTA HEAD AND NECK WITH CONTRAST REASON FOR EXAM: Male, 75 years old. Possible stroke RADIATION DOSAGE (If Supplied By Facility): CTDIvol = ( 20.95 ) mGy, DLP = ( 660.66 ) mGycm TECHNIQUE: CT angiography was performed with a multi-detector CT scanner. Data acquisition was obtained from the skull base through the vertex following intravenous administration of IV 100mL Isovue-300. MIP images were reconstructed from the axial data set. Post-processing of the angiographic images was performed, with multiplanar reformation and 3D reconstruction. Individualized dose optimization techniques were used for this CT. COMPARISON: No relevant priors. FINDINGS: Normal bilateral petrous carotid arteries. Normal right cavernous carotid artery with a normal supraclinoid bifurcation. Normal left cavernous carotid artery with a normal supraclinoid bifurcation. Normal right A1 segments of the anterior cerebral artery. Normal left A1 segments of the anterior cerebral artery. Normal intact anterior communicating artery (ACOM). Normal bilateral A2 segments of the anterior cerebral arteries. Normal right M1 and M2 segments of the middle cerebral arteries, with a normal M1 bifurcation. Normal left M1 and M2 segments of the middle cerebral arteries, with a normal M1 bifurcation. Normal right posterior communicating artery (PCOM). Normal left posterior communicating artery (PCOM). Normal bilateral vertebral arteries. Normal basilar artery with a normal basilar bifurcation. The visualized bilateral superior cerebellar (SCA) arteries are normal. Normal bilateral P1, P2 and visualized P3 segments of the posterior cerebral arteries. There is no demonstrated aneurysm of the ione of [place]. AORTIC ARCH: Normal visualized aortic arch. Normal origins of the brachiocephalic, left common carotid, and left subclavian arteries. RIGHT CAROTID ARTERIES: Normal right common carotid artery (CCA). Normal right common carotid bulb. Normal origin of the right internal carotid (ICA) artery without a hemodynamically significant stenosis. Normal visualized cervical portion of the right internal carotid artery. Normal origin of the right external carotid artery (ECA). There is mild calcified nonobstructing plaque in the carotids and vertebrals. LEFT CAROTID ARTERIES: Normal left common carotid artery (CCA). Normal left common carotid bulb. Normal origin of the left internal carotid (ICA) artery without a hemodynamically significant stenosis. Normal visualized cervical portion of the left internal carotid artery. Normal origin of the left external carotid artery (ECA). VERTEBRAL ARTERIES: Normal bilateral vertebral arteries. There is ill-defined heterogeneous intramedullary sclerotic lesion in the posterolateral T2 vertebral body. CT/CTA Head AND Neck W/ Contrast IMPRESSION: 1. Patent cervical and cranial vessels. 2. Mild nonobstructing atherosclerosis. 3. T2 vertebral body sclerotic lesion, unclear etiology. In a male patient PSA is advised to exclude possibility of sclerotic metastasis. Consider bone scan for further imaging assessment. Electronically Signed: Tiffanie Deras MD at 20:30 EDT Tel , Service support ,
[2021-03-11 19:18] LABS: Color, Urine Yellow (Yellow); Glucose, Dipstick Normal (Normal); Ketone-Dipstick 15 mg/dl (Negative); Leukocyte Esterase-Dipstick Negative /ul (Negative); Nitrite-Dipstick Negative (Negative); Occult Blood-Urine 150 /ul (Negative); Protein-Dipstick 100 mg/dl (Negative); Specific Gravity, Urine 1.015 (1.002-1.030); Urine Bilirubin Dipstick Negative (Negative); Urine Clarity Sl. Cloudy (Clear); Urine Urobilinogen Normal (Normal)
[2021-03-11 20:18] LABS: Mucous, Urine 2+ /hpf (<or=2+); Red Blood Cells-Urine 5-10 SEEN /hpf (0-5); White Blood Cells 0-5 SEEN /hpf (0-5)
[2021-03-11 20:19] LABS: Hyaline Cast 5-10 SEEN /lpf (0-5)
[2021-03-11] MEDS: Labetalol (Prefilled) 20 MG/4 ML 40 MG IV (21:24)
--- NOTE | 2021-03-11 21:33 | ED.RN ---
after 20mg IV labatolol patients BP dropped to 156/87. Verbal orders received to hold the other 20mg of the ordered dose.
--- NOTE | 2021-03-11 21:44 | HP.PCM.HOS_ITS ---
HPI - General General Date of Admission: 03/11/21 Date of Service: 03/11/21 Chief Complaint: Altered mental status HPI Narrative CARY JEFFRIES, is a 75 M with a significant history of paranoid personality disorder and who [facility] a [facility] presenting because of altered mental status. Reportedly at baseline patient is alert and oriented. However, on the day of presentation reportedly was walking naked at the [facility] where he lives. Associated with his symptoms is slurry speech. [facility] Medical History Cellulitis of right lower limb COVID-19 Essential hypertension Hyperlipemia Muscle weakness (generalized) Need for assistance with personal care Paranoid personality disorder Type 2 diabetes mellitus without complication Home Medications acetaminophen 650 mg PO Q4H PRN 03/11/21 [History Last Taken Unknown] amlodipine 10 mg PO DAILY 03/11/21 [History Last Taken Unknown] buspirone 10 mg PO BID 03/11/21 [History Last Taken Unknown] cholecalciferol (vitamin D3) 50 mcg PO DAILY 03/11/21 [History Last Taken Unknown] clonidine 1 patch TRANSDERMAL QWEEK 03/11/21 [History Last Taken Unknown] famotidine [Pepcid] 20 mg PO QHS 03/11/21 [History Last Taken Unknown] ferrous sulfate 325 mg PO BID 03/11/21 [History Last Taken Unknown] hydrochlorothiazide 12.5 mg PO DAILY 03/11/21 [History Last Taken Unknown] lisinopril 40 mg PO DAILY 03/11/21 [History Last Taken Unknown] metoprolol succinate 100 mg PO QHS 03/11/21 [History Last Taken Unknown] naproxen [Naprosyn] 500 mg PO BID PRN 03/11/21 [History Last Taken Unknown] polyethylene glycol 17 ea MISCELLANEOUS DAILY PRN 03/11/21 [History Last Taken Unknown] potassium chloride 20 meq PO DAILY 03/11/21 [History Last Taken Unknown] tramadol 50 mg PO BID PRN 03/11/21 [History Last Taken Unknown] vitamin M12-lwlwd acid 1 tab PO DAILY 03/11/21 [History Last Taken Unknown] Allergy/AdvReac Type Severity Reaction Status Date / Time amoxicillin Allergy Unknown Verified 03/11/21 16:49 erythromycin base Allergy NEEDS Verified 03/11/21 19:01 FOLLOW-UP propoxyphene [From Darvon] Allergy Unknown Verified 03/11/21 16:49 sulfamethoxazole Allergy NEEDS Verified 03/11/21 19:01 [From Bactrim] FOLLOW-UP trimethoprim [From Bactrim] Allergy NEEDS Verified 03/11/21 19:01 FOLLOW-UP unable to obtain (secondary to encephalopathy) Surgical History History of appendectomy Social History Smoking Status: Never smoker ROS ROS Narrative 12 point review of system is negative except as stated in HPI. Vital Signs Vital Signs Vital Signs: 03/11/21 16:50 03/11/21 17:00 03/11/21 18:13 Temperature 98.0 F Temperature Source Temporal Pulse Rate 55 L 60 Respiratory Rate 14 18 Respiratory Pattern Normal Blood Pressure 205/88 H 197/94 H Blood Pressure Mean 127 128 Pulse Ox 98 99 Oxygen Delivery Method Room Air Room Air 03/11/21 19:00 03/11/21 20:00 03/11/21 21:00 Temperature Temperature Source Pulse Rate 72 65 75 Respiratory Rate 18 21 H 17 Respiratory Pattern Blood Pressure 184/101 H 194/98 H 192/121 H Blood Pressure Mean 128 130 144 Pulse Ox 97 95 98 Oxygen Delivery Method Room Air Room Air Room Air 03/11/21 21:31 03/11/21 21:34 Temperature 97.3 F L Temperature Source Temporal Pulse Rate 63 61 Respiratory Rate 18 16 Respiratory Pattern Blood Pressure 156/87 H 156/87 H Blood Pressure Mean 110 110 Pulse Ox 98 97 Oxygen Delivery Method Room Air Room Air Weight Weight: 82.1 kg Body Mass Index (BMI) 25.2 Physical Exam Narrative Physical exam: General: Well-nourished, well-developed, no acute distress Head: Normocephalic, atraumatic, no tenderness Eyes: PERRLA, EOMI ENT, no trauma, moist mucous membranes, no rhinorrhea Neck: Nontender, full range of motion, no spinal tenderness, deformities, step- off CVS: Regular rate and rhythm Respiratory no acute distress, clear to auscultation bilaterally, chest wall nontender, no wheezing Abdomen: Soft, nontender, nondistended, normal bowel sounds, no masses : Deferred Back: Nontender, no CVA tenderness, no midline spinal tenderness, deformities, step-offs Extremities: Nontender full range of motion, no trauma Skin: Normal color, no trauma, abrasions Neuro: Alert. Patient knows the year and the month. He missed the date by 1 day. He does not know where he is right now but he knows that he is in [facility]. Results Lab / Micro Data Result Diagrams: 03/11/21 17:15 03/11/21 17:15 Labs: Laboratory Results - last 24 hr 03/11/21 03/11/21 03/11/21 17:15 17:15 19:05 WBC 10.2 RBC 5.60 Hgb 17.3 H Hct 50.9 MCV 90.9 MCH 30.9 MCHC 34.0 RDW Std Deviation 43.3 RDW Coeff of Josep 13.0 Plt Count 187 MPV 9.7 Immature Gran % (Auto) 0.300 Neut % (Auto) 76.6 H Lymph % (Auto) 13.0 L [place] % (Auto) 8.0 Eos % (Auto) 1.5 Baso % (Auto) 0.6 Absolute Neuts (auto) 7.8 H Absolute Lymphs (auto) 1.32 Nucleated RBC % 0 Sodium 139 Potassium 3.5 Chloride 104 Carbon Dioxide 27.0 Anion Gap 8 BUN 27 H Creatinine 1.42 H Estim Creat Clear Calc 49.35 Est GFR (MDRD) Af Amer 63 Est GFR (MDRD) Non-Af 52 L BUN/Creatinine Ratio 19.0 Glucose 173 H Calcium 9.2 Total Bilirubin 0.90 AST 15 ALT 16 Alkaline Phosphatase 136 H Total Protein 7.9 Albumin 3.8 Globulin 4.1 Albumin/Globulin Ratio 0.9 Urine Color Yellow Urine Clarity Sl. Cloudy Urine pH 6.0 Ur Specific [place] 1.015 Urine Protein 100 H Urine Glucose (UA) Normal Urine Ketones 15 H Urine Occult Blood 150 H Urine Nitrite Negative Urine Bilirubin Negative Urine Urobilinogen Normal Ur Leukocyte Esterase Negative Urine RBC 5-10 SEEN Urine WBC 0-5 SEEN Ur Squamous Epith Cells 0 SEEN Urine Bacteria 0 SEEN Hyaline Casts 5-10 SEEN Urine Mucus 2+ Radiology Impression Brain CT 03/11/21 17:10 IMPRESSION: 1. Possible acute right lentiform nucleus infarct. Confirmatory imaging advised. 2. Moderate chronic small vessel ischemic disease. Electronically Signed: Tiffanie Deras MD at 18:44 EDT Tel , Service support , ADDENDUM: 03/11/21 1902 IMPRESSION: 1. Possible acute right lentiform nucleus infarct. Confirmatory imaging advised. 2. Moderate chronic small vessel ischemic disease. N.B. : JORGE LUIS MARTINEZ MD, MD, confirmed on 03/11/2021 18:55:51 (ET) that the healthcare facility has received the radiology report. Electronically Signed: Tiffanie Deras MD at 18:44 EDT Tel , Service support , Head/Neck CTA 03/11/21 19:11 IMPRESSION: 1. Patent cervical and cranial vessels. 2. Mild nonobstructing atherosclerosis. 3. T2 vertebral body sclerotic lesion, unclear etiology. In a male patient PSA is advised to exclude possibility of sclerotic metastasis. Consider bone scan for further imaging assessment. Electronically Signed: Tifafnie Deras MD at 20:30 EDT Tel , Service support , Assessment & Plan Assessment/Plan (1) Encephalopathy acute: (2) CVA (cerebral vascular accident): QUALIFIERS: CVA mechanism: unspecified Qualified Code(s): I63.9 - Cerebral infarction, unspecified PLAN: Acute encephalopathy/CVA Serial NINDS NIH Scale ordered Impression of head CT by radiologist: Possible acute right lentiform nucleus infarct; Moderate chronic small vessel ischemic disease. CT of the head was independently visualized and I agree with radiologist interpretation. -Check Hba1c, Lipid level Review of labs showed normal white count. Physical therapy, occupational therapy and speech therapy to work with patient. N.p.o. until bedside swallow eval. Daily aspirin ordered. High intensity statin ordered. Lipid profile and A1c ordered. Permissive hypertension. Control blood pressure with labetalol for systolic blood pressure of more than 220 or diastolic blood pressure of more than 120. Head/neck CTA with no LVO. Sclerotic lesion of T2 for which radiology recommended a PSA. PSA ordered. MRI ordered Echocardiogram ordered. Hypertensive urgency -Systolic blood pressure 205; highest diastolic blood pressure 121. Blood pressure is not within goal Home medication held secondary to permissive hypertension. Patient is is at risk for rebound hypertension from home clonidine use. As needed labetalol and hydralazine per stroke protocol. As needed hydralazine ordered. Trend blood pressure and adjust blood pressure medications as necessary MARIO ALBERTO Creatinine on presentation was 1.42. Review of records showed creatinine baseline 1.0. Gentle IV hydration ordered. Trend BMP. Avoid nephrotoxic's. Lisinopril held. Microhematuria Review of Emergency department urinalysis showed proteinuria and positive urine occult blood. Recommend Longitudinal follow-up for UA. Anxiety disorder/paranoid personality BuSpar continued. DVT prophylaxis: SCD ordered. Charges/Coding Visit Charges OBSV E&M: [id number] Initial observation care L3
--- NOTE | 2021-03-11 22:33 | ECHOD_ITS ---
Reason For Study: TIA/CVA Procedure This was a 2D Doppler, Color Flow transthoracic echocardiogram. Exam performed in department. Left Ventricle Normal LV size. Left ventricular systolic function is normal. The estimated ejection fraction is 60 %. Stage 1 diastolic dysfunction. No regional wall motion abnormalities noted. Right Ventricle Normal RV size. Normal systolic function. Atria The left atrium is mildly enlarged. Normal right atrium. Bubble contrast study negative for right to left interatrial shunt. Mitral Valve Normal mitral valve. Tricuspid Valve Normal tricuspid valve. Aortic Valve Normal aortic valve. Trisinus/trileaflet aortic valve. Pulmonic Valve Normal pulmonic valve. Great Vessels Normal aortic root. The pulmonary artery is normal size. Normal inferior vena cava. Pericardium/Pleural No pericardial effusion. Medication Performed a rapid injection of agitated mix of 9 cc saline and 1cc air to assess for atrial septal defect. MMode/2D Measurements & Calculations LVIDd: 4.2 cm IVSd: 1.5 cm Ao root diam: 3.5 cm LVIDs: 2.4 cm LVPWd: 1.2 cm RVDd: 3.6 cm FS: 42.1 % LAV(MOD-bp): 66.2 ml LVAd ap4: 27.1 cm2 SV(MOD-sp4): 43.1 ml LAV(MOD-bp) Indexed: 32.8 ml/m2 LVLd ap4: 8.6 cm LAV(MOD-sp2): 52.7 ml EDV(MOD-sp4): 69.9 ml LAV(MOD-sp4): 71.4 ml EDV(sp4-el): 72.8 ml LVAs ap4: 14.1 cm2 LVLs ap4: 7.1 cm ESV(MOD-sp4): 26.7 ml ESV(sp4-el): 23.9 ml EF(MOD-sp4): 61.7 % EF(sp4-el): 67.1 % SV(sp4-el): 48.9 ml LA A4 area: 22.4 cm2 LA dimension(2D): 5.2 cm RA A4 area: 17.9 cm2 Doppler Measurements & Calculations MV E max ron: 43.2 cm/sec Lat Peak E' Ron: 5.2 cm/sec Med Peak E' Ron: 3.5 cm/sec MV A max ron: 79.4 cm/sec E/E' lat: 8.4 E/E' med: 12.4 MV E/A: 0.54 Ao V2 max: 124.8 cm/sec LV V1 max: 99.7 cm/sec PA V2 max: 123.1 cm/sec Ao max P.2 mmHg LV V1 max P.0 mmHg ECHO/Echo Complete Interpretation Summary Normal LV size. Left ventricular systolic function is normal. The estimated ejection fraction is 60 %. Stage 1 diastolic dysfunction. The left atrium is mildly enlarged. Bubble contrast study negative for right to left interatrial shunt. Ordering Physician: Jorge Luis Jett Referring Physician: Alvina Granados Performed By: Marianne Waddell RDCS
[2021-03-11] MEDS: 0.9% Normal Saline 1,000 ML 75 ML IV (23:09)
[2021-03-11 23:21] LABS: Ammonia < 10.0 umol/L (11-32)
[2021-03-11] MEDS: busPIRone 5 MG Tablet 10 MG PO (23:30)
[2021-03-11] MEDS: Famotidine 20 MG Tablet PO (23:30)
[2021-03-11] MEDS: Atorvastatin Calcium 40 MG Tablet PO (23:30)
[2021-03-12] VITALS (7 sets, daily range): BP systolic 154–186; BP diastolic 66–92; PULSE 62–84; RESP 14–18; TEMP 36.6–37.1; O2SAT 96–98; BMI 24.5
[2021-03-12 02:56] LABS: Bedside Glucose 167 mg/dL (70-110)
--- NOTE | 2021-03-12 04:19 | NURSING ---
Pt pulled IV out, slightly agitated. New IV restarted successfully in RFA.
[2021-03-12 06:40] LABS: Absolute Lymphocyte Count 1.15 X10^3/uL (0.83-4.51); Absolute Neutrophil Count 6.5 X10^3/uL (2.0-7.7); Basophil# 0.04 X10^3/uL; Basophil% 0.5 % (0-1); Eosinophil# 0.11 X10^3/uL; Eosinophils% 1.3 % (0-5); Hematocrit 47.1 % (40-54); Hemoglobin 15.7 g/dL (13.0-16.5); Lymphocyte # 1.15 X10^3/ul (0.83-4.51); Lymphocyte % 13.6 % (19-41); Mean Corp Hgb Conc 33.3 g/dL (32-36); Mean Corpuscular Hgb 30.4 pg (27.0-32.0); Mean Corpuscular Volume 91.1 fL (80-94); Mean Platelet Vol. 9.8 fl (6.2-12.0); Monocyte# 0.66 X10^3/uL; Monocyte% 7.8 % (0-10); NRBC Flagged by Analyzer 0 % (0-5); Neutrophil # 6.48 X10^3/uL (2.7-7.7); Neutrophil % 76.6 % (47-70); Platelet Count 181 K/mm3 (150-450); RBC Distribution Width CV 13.1 % (11.6-14.6); RBC Distribution Width SD 43.4 fl (35.1-43.9); Red Blood Count 5.17 M/mm3 (4.6-6.2); White Blood Count 8.5 K/mm3 (4.4-11.0)
[2021-03-12 07:18] LABS: Anion Gap 8 (5-15); BUN 26 mg/dL (7-18); BUN/Creat Ratio 19.7 RATIO (10-20); Calcium,Total 8.4 mg/dL (8.5-10.1); Chloride 108 mmol/L (98-107); Cholesterol 218 mg/dL (200); Creatinine, Serum 1.32 mg/dL (0.70-1.30); EST Glomerular Filtration Rate 57 mL/min (>60); Est Glom Filt Rate - Afr Amer 68 mL/min (>60); Estimated Creatinine Clearance 53.08 ml/min; Glucose 178 mg/dL (74-106); High Density Lipoprotein 38 mg/dL; Potassium 3.2 mmol/L (3.5-5.1); Sodium Level 142 mmol/L (136-145); Thyroid Stim Hormone (TSH) 1.21 uIU/mL (0.358-3.74); Triglycerides 103 mg/dL; Very Low Density Lipoprotein 21 mg/dL (5-40)
[2021-03-12 07:48] LABS: Hemoglobin A1c 6.3 % (3.8-5.6)
[2021-03-12] MEDS: busPIRone 5 MG Tablet 10 MG PO ×2 (09:49→21:09)
[2021-03-12] MEDS: Cyanocobalamin 500 MCG Tablet PO (09:49)
[2021-03-12] MEDS: Ferrous Sulfate 325 MG Tablet PO ×2 (09:49→17:08)
[2021-03-12] MEDS: Folic Acid 1 MG Tablet 0.5 MG PO (09:50)
[2021-03-12] MEDS: Potassium Chloride Oral Tablet 20 MEQ PO (09:50)
[2021-03-12] MEDS: Aspirin 81 MG TAB.CHEW PO (09:51)
[2021-03-12] MEDS: Cholecalciferol (VIT D3) 25 MCG TABLET (1,000 UNITS) 50 MCG PO (09:51)
--- NOTE | 2021-03-12 10:00 | MRI_ITS ---
STUDY: MRI BRAIN WITHOUT CONTRAST REASON FOR EXAM: Male, 75 years old. Stroke TECHNIQUE: Standardized multiplanar fat and water weighted pulse sequences were obtained. COMPARISON: 11 March 2021 FINDINGS: There is no acute infarct involving the posterior aspect of the right lentiform nucleus and adjacent mid stanley radiata. There is no shift, hydrocephalus, extra parenchymal fluid collections or herniation. There is mild chronic white matter ischemic disease. There is no acute intracranial hemorrhage. Appearance is concordant with CT. MRI/Brain without Contrast IMPRESSION: 1. Right lentiform nucleus/adjacent white matter acute infarct. Electronically Signed: Tiffanie Deras MD at 16:24 EDT Tel , Service support ,
[2021-03-12] MEDS: LORazepam 2 MG/ML Syringe 0.5 MG IV (10:19)
--- NOTE | 2021-03-12 15:03 | CM.ED ---
SOCIAL WORK Patient from [facility] with plan to return. Spoke with Hortencia at [facility] who reports if patient has been observation and has not been in hospital over 24 hours, able to return to facility as patient would not be considered a re-admit. residential property manager, Jenny Sanchez, [employer], OBSTETRICS NURSE
--- NOTE | 2021-03-12 15:06 | PN.HOSP_ITS ---
Documented by User: Demond GONZALEZ 03/12/21 15:20 Subjective Subjective Patient is a 75-year-old male comfortably resting in bed, alert and orient x3. Patient reports ongoing numbness and weakness about the entire left side of his body. Denies chest pain, shortness of breath, palpitations, hemoptysis, sputum production, fever, chills, N/V/D. Objective Data Objective Data Vital Signs: Vital Signs Temp Pulse Resp BP Pulse Ox 98.0 F 62 14 154/86 H 96 03/12/21 10:01 03/12/21 10:01 03/12/21 10:01 03/12/21 10:01 03/12/21 10:01 Oxygen Delivery Method Room Air Weight: 175 lb 14.862 oz Body Mass Index (BMI) 24.5 Intake & Output: Intake and Output for Last 24 Hours 03/10/21 03/11/21 03/12/21 23:59 23:59 23:59 Intake Total 100 / 100 897.5 / 897.5 Balance 100 / 100 897.5 / 897.5 Lab / Micro Data Result Diagrams: 03/12/21 06:10 03/12/21 06:10 Labs: Laboratory Results - last 24 hr 03/11/21 03/11/21 03/11/21 17:15 17:15 19:05 WBC 10.2 RBC 5.60 Hgb 17.3 H Hct 50.9 MCV 90.9 MCH 30.9 MCHC 34.0 RDW Std Deviation 43.3 RDW Coeff of Josep 13.0 Plt Count 187 MPV 9.7 Immature Gran % (Auto) 0.300 Neut % (Auto) 76.6 H Lymph % (Auto) 13.0 L Oxford % (Auto) 8.0 Eos % (Auto) 1.5 Baso % (Auto) 0.6 Absolute Neuts (auto) 7.8 H Absolute Lymphs (auto) 1.32 Nucleated RBC % 0 Sodium 139 Potassium 3.5 Chloride 104 Carbon Dioxide 27.0 Anion Gap 8 BUN 27 H Creatinine 1.42 H Estim Creat Clear Calc 49.35 Est GFR (MDRD) Af Amer 63 Est GFR (MDRD) Non-Af 52 L BUN/Creatinine Ratio 19.0 Glucose 173 H Hemoglobin A1c Calcium 9.2 Total Bilirubin 0.90 AST 15 ALT 16 Alkaline Phosphatase 136 H Ammonia Total Protein 7.9 Albumin 3.8 Globulin 4.1 Albumin/Globulin Ratio 0.9 Triglycerides Cholesterol LDL Cholesterol VLDL Cholesterol HDL Cholesterol TSH Urine Color Yellow Urine Clarity Sl. Cloudy Urine pH 6.0 Ur Specific Denison 1.015 Urine Protein 100 H Urine Glucose (UA) Normal Urine Ketones 15 H Urine Occult Blood 150 H Urine Nitrite Negative Urine Bilirubin Negative Urine Urobilinogen Normal Ur Leukocyte Esterase Negative Urine RBC 5-10 SEEN Urine WBC 0-5 SEEN Ur Squamous Epith Cells 0 SEEN Urine Bacteria 0 SEEN Hyaline Casts 5-10 SEEN Urine Mucus 2+ POC Glucose 03/11/21 03/12/21 03/12/21 22:35 02:47 06:10 WBC RBC Hgb Hct MCV MCH MCHC RDW Std Deviation RDW Coeff of Josep Plt Count MPV Immature Gran % (Auto) Neut % (Auto) Lymph % (Auto) Oxford % (Auto) Eos % (Auto) Baso % (Auto) Absolute Neuts (auto) Absolute Lymphs (auto) Nucleated RBC % Sodium 142 Potassium 3.2 L Chloride 108 H Carbon Dioxide 26.0 Anion Gap 8 BUN 26 H Creatinine 1.32 H Estim Creat Clear Calc 53.08 Est GFR (MDRD) Af Amer 68 Est GFR (MDRD) Non-Af 57 L BUN/Creatinine Ratio 19.7 Glucose 178 H Hemoglobin A1c Calcium 8.4 L Total Bilirubin AST ALT Alkaline Phosphatase Ammonia < 10.0 L Total Protein Albumin Globulin Albumin/Globulin Ratio Triglycerides 103 Cholesterol 218 H LDL Cholesterol 159 H VLDL Cholesterol 21 HDL Cholesterol 38 L TSH 1.21 Urine Color Urine Clarity Urine pH Ur Specific Denison Urine Protein Urine Glucose (UA) Urine Ketones Urine Occult Blood Urine Nitrite Urine Bilirubin Urine Urobilinogen Ur Leukocyte Esterase Urine RBC Urine WBC Ur Squamous Epith Cells Urine Bacteria Hyaline Casts Urine Mucus POC Glucose 167 H 03/12/21 03/12/21 06:10 06:10 WBC 8.5 RBC 5.17 Hgb 15.7 Hct 47.1 MCV 91.1 MCH 30.4 MCHC 33.3 RDW Std Deviation 43.4 RDW Coeff of Josep 13.1 Plt Count 181 MPV 9.8 Immature Gran % (Auto) 0.200 Neut % (Auto) 76.6 H Lymph % (Auto) 13.6 L Oxford % (Auto) 7.8 Eos % (Auto) 1.3 Baso % (Auto) 0.5 Absolute Neuts (auto) 6.5 Absolute Lymphs (auto) 1.15 Nucleated RBC % 0 Sodium Potassium Chloride Carbon Dioxide Anion Gap BUN Creatinine Estim Creat Clear Calc Est GFR (MDRD) Af Amer Est GFR (MDRD) Non-Af BUN/Creatinine Ratio Glucose Hemoglobin A1c 6.3 H Calcium Total Bilirubin AST ALT Alkaline Phosphatase Ammonia Total Protein Albumin Globulin Albumin/Globulin Ratio Triglycerides Cholesterol LDL Cholesterol VLDL Cholesterol HDL Cholesterol TSH Urine Color Urine Clarity Urine pH Ur Specific Denison Urine Protein Urine Glucose (UA) Urine Ketones Urine Occult Blood Urine Nitrite Urine Bilirubin Urine Urobilinogen Ur Leukocyte Esterase Urine RBC Urine WBC Ur Squamous Epith Cells Urine Bacteria Hyaline Casts Urine Mucus POC Glucose Radiography Diagnostic Testing: Radiology Impression Brain CT 03/11/21 17:10 IMPRESSION: 1. Possible acute right lentiform nucleus infarct. Confirmatory imaging advised. 2. Moderate chronic small vessel ischemic disease. Electronically Signed: Tiffanie Deras MD at 18:44 EDT Tel , Service support , ADDENDUM: 03/11/21 190 IMPRESSION: 1. Possible acute right lentiform nucleus infarct. Confirmatory imaging advised. 2. Moderate chronic small vessel ischemic disease. N.B. : JORGE LUIS MARTINEZ MD , MD, confirmed on 03/11/2021 18:55:51 (ET) that the healthcare facility has received the radiology report. Electronically Signed: Tiffanie Deras MD at 18:44 EDT Tel , Service support , Head/Neck CTA 03/11/21 19:11 IMPRESSION: 1. Patent cervical and cranial vessels. 2. Mild nonobstructing atherosclerosis. 3. T2 vertebral body sclerotic lesion, unclear etiology. In a male patient PSA is advised to exclude possibility of sclerotic metastasis. Consider bone scan for further imaging assessment. Electronically Signed: Tiffanie Deras MD at 20:30 EDT Tel , Service support , Echocardiogram 03/11/21 22:33 Interpretation Summary Normal LV size. Left ventricular systolic function is normal. The estimated ejection fraction is 60 %. Stage 1 diastolic dysfunction. The left atrium is mildly enlarged. Bubble contrast study negative for right to left interatrial shunt. Ordering Physician: Jorge Luis Jett Referring Physician: Alvina Granados Performed By: Marianne Waddell RDCS Physical Exam Const alert, oriented x3 and no apparent distress HEENT head/scalp atraumatic, moist oral mucous membranes and oropharynx normal Head and Scalp: normocephalic Eyes EOMs intact bilaterally and conjunctivae normal Neck no lymphadenopathy, supple and no JVD Resp normal respiratory effort, no retractions and no use of accessory muscles Cardio regular rate, regular rhythm, no murmurs and no JVD GI normal to inspection, nondistended, normoactive bowel sounds, soft to palpation and non-tender Extremity normal to inspection, full ROM and no clubbing, cyanosis or edema Extremity Narrative: Weakness and numbness reported throughout the left upper and lower extremities. Skin no rashes or lesions noted, no wounds, skin turgor normal and no jaundice Neuro Neuro Narrative: Patient reports ongoing numbness and weakness about the entire left side of his body. Psych affect normal Assessment & Plan Assessment/Plan (1) CVA (cerebral vascular accident): QUALIFIERS: CVA mechanism: unspecified Qualified Code(s): I63.9 - Cerebral infarction, unspecified (2) Encephalopathy acute: (3) AMS (altered mental status): PLAN: Day 2: See subjective. Discharge planning: Patient comes from [facility] and will likely need to be discharged back for prison care. 1) acute encephalopathy secondary to suspected CVA Physical exam demonstrated ongoing weakness about the left lower and upper extremities. Echocardiogram demonstrated normal LV size and systolic function, an estimated EF of 60% and stage I diastolic dysfunction. Brain CT on admission demonstrated possible acute right lentiform nucleus infarct and moderate chronic small vessel ischemic disease. Head/neck CT-A showed patency in the vessels and demonstrate no evidence of atherosclerosis, suspicious lesion about the T2 vertebral body noted. PT/OT eval recommends ongoing skilled therapy. NIH stroke scale 1. Lipid panel demonstrates elevated LDL cholesterol 159 and elevated total cholesterol at 218. No hypoglycemia noted on Accu-Cheks, hemoglobin A1c is within normal limits. TSH within normal limits. Plan; brain MRI ordered/pending, SOC consult pending MRI, continue NIHSS, allow for permissive hypertension, labetalol and hydralazine ordered for BP greater than 220 systolic or more than 120 diastolic, continue high intensity statin, continue aspirin. 2) hypertensive urgency Observed in the ED, currently stable at 154/86. Continue to allow for permissive hypertension due to #1. Hold home clonidine and lisinopril, hydralazine and labetalol as above. 3) MARIO ALBERTO Creatinine currently 1.3, down from admission. Plan; gentle IV hydration ordered, avoid nephrotoxins. 4) anxiety disorder/paranoid personality Continue BuSpar DVT prophylaxis - SCDs Patient seen by Demond Mayer PA-C, under the supervision of Dr. De La Rosa. Documented by User: Dr. Maycol De La Rosa MD 03/12/21 17:28 Objective Data Lab / Micro Data Result Diagrams: 03/12/21 06:10 03/12/21 06:10 Charges/Coding Addendum Addendum: Dr. De La Rosa: I personally reviewed the chart and examined the patient, and agree with the above findings. 75-year-old male presented from the detention with acute lef t-sided numbness tingling and weakness. CT of his brain hinted at the possibility of an infarct, MRI was obtained today and demonstrated a right lentiform nucleus acute infarct. We will consult SOC neurology and keep him here overnight and plan for discharge back to his prison facility once he obtains pre-CERT. It does appear that his altered mental status has resolved. Echo was unremarkable. Continue with aspirin and Lipitor. Visit Charges Inpatient E&M: 27211 Subs Hosp L2
--- NOTE | 2021-03-12 15:35 | CASEMGMT ---
YEE CM attempted to complete WILSON Form with patient. Patient is confused and unable to understand WILSON Form. No contact listed to complete WILSON form. CM will attempt to complete form with patient when he is oriented.
--- NOTE | 2021-03-12 16:46 | TELEMED_ITS ---
SOC Telemed has confirmed receipt of a request for visit. This document confirms receipt of the order initiating the consult. To find the results of the consultation, please view the patient's reports for the scanned Telemed Consult.
--- NOTE | 2021-03-12 17:00 | CASEMGMT ---
SOCIAL WORK Met with patient in room. Introduced role and reason for visit. Patient with some confusion. Patient from [facility]. Patient reports will return to [facility] upon discharge. Explained PHQ9. PHQ9 completed. Nursing updated. Piyush. MS LauraW, [employer]
[2021-03-12] MEDS: 0.9% Normal Saline 1,000 ML 75 ML IV (17:08)
[2021-03-12] MEDS: Famotidine 20 MG Tablet PO (21:09)
[2021-03-12] MEDS: Atorvastatin Calcium 40 MG Tablet PO (21:09)
[2021-03-13] VITALS (9 sets, daily range): BP systolic 164–194; BP diastolic 83–101; PULSE 65–89; RESP 16–18; TEMP 36.5–37.2; O2SAT 95–99; BMI 24.5
[2021-03-13] MEDS: 0.9% Normal Saline 1,000 ML 75 ML IV (04:08)
[2021-03-13 06:01] LABS: Anion Gap 8 (5-15); BUN 19 mg/dL (7-18); BUN/Creat Ratio 18.1 RATIO (10-20); Calcium,Total 8.3 mg/dL (8.5-10.1); Chloride 111 mmol/L (98-107); Creatinine, Serum 1.05 mg/dL (0.70-1.30); EST Glomerular Filtration Rate 74 mL/min (>60); Est Glom Filt Rate - Afr Amer 89 mL/min (>60); Estimated Creatinine Clearance 66.73 ml/min; Glucose 170 mg/dL (74-106); Potassium 3.2 mmol/L (3.5-5.1); Sodium Level 143 mmol/L (136-145)
[2021-03-13 08:15] LABS: Magnesium 1.9 mg/dL (1.6-2.6); Phosphorus 1.9 mg/dL (2.5-4.9)
[2021-03-13] MEDS: Ferrous Sulfate 325 MG Tablet PO ×2 (08:26→16:10)
[2021-03-13] MEDS: Cyanocobalamin 500 MCG Tablet PO (08:26)
[2021-03-13] MEDS: Potassium Chloride Oral Tablet 20 MEQ 40 MEQ PO (08:26)
[2021-03-13] MEDS: Aspirin 81 MG TAB.CHEW PO (08:26)
[2021-03-13] MEDS: Potassium Chloride Oral Tablet 20 MEQ PO (08:26)
[2021-03-13] MEDS: Folic Acid 1 MG Tablet 0.5 MG PO (08:26)
[2021-03-13] MEDS: busPIRone 5 MG Tablet 10 MG PO ×2 (09:27→21:59)
[2021-03-13] MEDS: Cholecalciferol (VIT D3) 25 MCG TABLET (1,000 UNITS) 50 MCG PO (09:27)
--- NOTE | 2021-03-13 12:21 | PN.HOSP_ITS ---
Documented by User: Demond GONZALEZ 03/13/21 12:30 Subjective Subjective Patient is a 75-year-old male comfortably resting in bed, alert and orient x3. Patient reports improvement in his numbness and weakness about the left side of his body relative to yesterday. Denies chest pain, shortness of breath, pa lpitations, hemoptysis, sputum production, fever, chills, N/V/D. Objective Data Objective Data Vital Signs: Vital Signs Temp Pulse Resp BP Pulse Ox 97.9 F 68 18 194/94 H 99 03/13/21 12:00 03/13/21 12:00 03/13/21 12:00 03/13/21 12:00 03/13/21 12:00 Oxygen Delivery Method Room Air Weight: 175 lb 14.862 oz Body Mass Index (BMI) 24.5 Intake & Output: Intake and Output for Last 24 Hours 03/11/21 03/12/21 03/13/21 23:59 23:59 23:59 Intake Total 100 / 100 1422.5 / 1422.5 940 / 940 Balance 100 / 100 1422.5 / 1422.5 940 / 940 Lab / Micro Data Result Diagrams: 03/12/21 06:10 03/13/21 05:11 Labs: Laboratory Results - last 24 hr 03/13/21 03/13/21 05:11 05:11 Sodium 143 Potassium 3.2 L Chloride 111 H Carbon Dioxide 24.0 Anion Gap 8 BUN 19 H Creatinine 1.05 Estim Creat Clear Calc 66.73 Est GFR (MDRD) Af Amer 89 Est GFR (MDRD) Non-Af 74 BUN/Creatinine Ratio 18.1 Glucose 170 H Calcium 8.3 L Phosphorus 1.9 L Magnesium 1.9 Radiography Diagnostic Testing: Radiology Impression Brain MRI 03/12/21 10:00 IMPRESSION: 1. Right lentiform nucleus/adjacent white matter acute infarct. Electronically Signed: Tiffanie Deras MD at 16:24 EDT Tel , Service support , Physical Exam Const alert, oriented x3 and no apparent distress HEENT head/scalp atraumatic and moist oral mucous membranes Head and Scalp: normocephalic Eyes EOMs intact bilaterally and conjunctivae normal Neck no lymphadenopathy, supple and no JVD Resp normal respiratory effort, no retractions and no use of accessory muscles Cardio regular rate, regular rhythm, no murmurs and no JVD GI normal to inspection, nondistended, normoactive bowel sounds, soft to palpation and non-tender Extremity normal to inspection and no clubbing, cyanosis or edema Extremity Narrative: Noted improvement in weakness and numbness about the left upper and lower extremities. Skin no rashes or lesions noted, no wounds and skin turgor normal Neuro Neuro Narrative: Noted improvement in numbness and weakness about the left upper and lower extremities. Psych affect normal Assessment & Plan Assessment/Plan (1) CVA (cerebral vascular accident): QUALIFIERS: CVA mechanism: unspecified Qualified Code(s): I63.9 - Cerebral infarction, unspecified (2) AMS (altered mental status): (3) Encephalopathy acute: PLAN: Day 3: See subjective. Discharge planning: Patient comes from [facility] and will need Pre-Cert to [facility], [facility]. 1) acute encephalopathy secondary to Acute Stroke SOC Teleneuro consult; continue cardiac monitoring for A-Fib, initiate Aspirin/Statin. Brain MRI; acute infarction in the right lentiform nucleus/adjacent white matter. Echocardiogram demonstrated normal LV size and systolic function, an estimated EF of 60% and stage I diastolic dysfunction. Lipid panel demonstrates elevated LDL cholesterol 159 and elevated total cholesterol at 218. No hypoglycemia noted on Accu-Cheks, hemoglobin A1c is within normal limits. TSH within normal limits. Plan; continue aspirin and statin and cardiac monitoring as above, patient remained admitted until can be discharged back to [facility] for ongoing intermediate care. 2) hypertensive urgency Observed in the ED, currently stable at 154/86. Continue to allow for permissive hypertension due to #1. Hold home clonidine and lisinopril, hydralazine and labetalol as above. 3) MARIO ALBERTO Resolved, currently 1.05. Plan; continue to monitor BMP, avoid nephrotoxins. 4) anxiety disorder/paranoid personality Continue BuSpar DVT prophylaxis - SCDs Patient seen by Demond Mayer PA-C, under the supervision of Dr. De La Rosa. Documented by User: Dr. Maycol De La Rosa MD 03/13/21 15:30 Objective Data Lab / Micro Data Result Diagrams: 03/12/21 06:10 03/13/21 05:11 Charges/Coding Addendum Addendum: Dr. De La Rosa: I personally reviewed the chart and examined the patient, and agree with the above findings. 75-year-old male presented from the long-term with acute left-sided numbness tingling and weakness. CT of his brain hinted at the possibility of an infarct, MRI was obtained today and demonstrated a right lentiform nucleus acute infarct. We will consult SOC neurology and keep him here overnight and plan for discharge back to his intermediate facility once he obtains pre-CERT. It does appear that his altered mental status has resolved. Echo was unremarkable. Continue with aspirin and Lipitor. 03/13/2021: Doing well, deficits appear to be improving. He still confused but this is likely his baseline given his dementia. He knows who he is and what yea r it is to be does not know where he is. Will attempt to reattach the telemetry leads to see if he has A. fib. Unfortunately I am unable to find any contacts for him therefore unsure as to how to obtain consent if a loop recorder were to be needed. We will need to obtain pre-CERT prior to return to the long-term. Visit Charges Inpatient E&M: 66775 Subs Hosp L2
[2021-03-13 16:50] LABS: Bedside Glucose 192 mg/dL (70-110)
[2021-03-13] MEDS: Famotidine 20 MG Tablet PO (21:58)
[2021-03-13] MEDS: Atorvastatin Calcium 40 MG Tablet PO (21:59)
[2021-03-13 22:25] LABS: Bedside Glucose 176 mg/dL (70-110)
[2021-03-14] VITALS (11 sets, daily range): BP systolic 144–197; BP diastolic 78–108; PULSE 56–175; RESP 14–18; TEMP 36.6–37.2; O2SAT 95–99
[2021-03-14 05:43] LABS: Absolute Lymphocyte Count 0.85 X10^3/uL (0.83-4.51); Absolute Neutrophil Count 10.3 X10^3/uL (2.0-7.7); Basophil# 0.04 X10^3/uL; Basophil% 0.3 % (0-1); Eosinophil# 0.02 X10^3/uL; Eosinophils% 0.2 % (0-5); Hematocrit 45.7 % (40-54); Hemoglobin 15.4 g/dL (13.0-16.5); Lymphocyte # 0.85 X10^3/ul (0.83-4.51); Lymphocyte % 7.1 % (19-41); Mean Corp Hgb Conc 33.7 g/dL (32-36); Mean Corpuscular Hgb 30.7 pg (27.0-32.0); Mean Corpuscular Volume 91.2 fL (80-94); Mean Platelet Vol. 9.9 fl (6.2-12.0); Monocyte# 0.71 X10^3/uL; NRBC Flagged by Analyzer 0 % (0-5); Neutrophil # 10.26 X10^3/uL (2.7-7.7); Platelet Count 185 K/mm3 (150-450); RBC Distribution Width SD 42.9 fl (35.1-43.9); Red Blood Count 5.01 M/mm3 (4.6-6.2); White Blood Count 11.9 K/mm3 (4.4-11.0)
[2021-03-14 06:08] LABS: Anion Gap 7 (5-15); BUN 18 mg/dL (7-18); BUN/Creat Ratio 17.5 RATIO (10-20); Calcium,Total 8.7 mg/dL (8.5-10.1); Chloride 110 mmol/L (98-107); Creatinine, Serum 1.03 mg/dL (0.70-1.30); EST Glomerular Filtration Rate 75 mL/min (>60); Est Glom Filt Rate - Afr Amer 91 mL/min (>60); Estimated Creatinine Clearance 68.03 ml/min; Glucose 184 mg/dL (74-106); Potassium 3.3 mmol/L (3.5-5.1); Sodium Level 141 mmol/L (136-145)
[2021-03-14 06:40] LABS: Bedside Glucose 196 mg/dL (70-110)
--- NOTE | 2021-03-14 08:32 | EKG12_ITS ---
Test Reason : TACHYCARDIA Blood Pressure : / mmHG Vent. Rate : 149 BPM Atrial Rate : 174 BPM P-R Int : 000 ms QRS Dur : 084 ms QT Int : 270 ms P-R-T Axes : 000 038 203 degrees QTc Int : 425 ms Atrial fibrillation with premature ventricular or aberrantly conducted complexes Marked ST abnormality, possible inferior subendocardial injury Marked ST abnormality, possible anterolateral subendocardial injury Abnormal ECG When compared with ECG of 11-MAR-2021 17:42, MANUAL COMPARISON REQUIRED, DATA IS UNCONFIRMED Confirmed by MATEO MACKENZIE, JACI ([id number]), desk clerks supervisor SPIKE MCDANIEL ([id number]) on 03/15/2021 8:47:24 AM Referred By: BAY Confirmed By:JACI GALINDO MD
[2021-03-14] MEDS: amLODIPine 10 MG Tablet PO (08:53)
[2021-03-14] MEDS: Lisinopril 40 MG Tablet PO (08:53)
[2021-03-14] MEDS: Labetalol (Prefilled) 20 MG/4 ML IV (08:54)
[2021-03-14] MEDS: Ferrous Sulfate 325 MG Tablet PO ×2 (08:57→16:44)
[2021-03-14] MEDS: Cholecalciferol (VIT D3) 25 MCG TABLET (1,000 UNITS) 50 MCG PO (08:57)
[2021-03-14] MEDS: Aspirin 81 MG TAB.CHEW PO (08:58)
[2021-03-14] MEDS: Folic Acid 1 MG Tablet 0.5 MG PO (08:58)
[2021-03-14] MEDS: busPIRone 5 MG Tablet 10 MG PO (08:59)
[2021-03-14] MEDS: Potassium Chloride Oral Tablet 20 MEQ 40 MEQ PO (09:07)
[2021-03-14] MEDS: Potassium Chloride Oral Tablet 20 MEQ PO (09:07)
[2021-03-14] MEDS: Cyanocobalamin 500 MCG Tablet PO (09:07)
[2021-03-14] MEDS: Metoprolol(XL)Succ 100 MG Tablet PO (09:07)
--- NOTE | 2021-03-14 10:03 | CASEMGMT ---
Patient is from [facility]. SW faxed updates to [facility]. SW to follow for return to [facility]. Hailey Peterson [employer]
--- NOTE | 2021-03-14 10:41 | PN.HOSP_ITS ---
Documented by User: Demond GONZALEZ 03/14/21 10:54 Subjective Subjective Patient is a 75-year-old male comfortably resting in bed, alert and orient x3. Patient reports no complaints progression of symptoms from yesterday. Denies chest pain, shortness of breath, palpitations, hemoptysis, sputum production, fever, chills, N/V/D. Objective Data Objective Data Vital Signs: Vital Signs Temp Pulse Resp BP Pulse Ox 98 F 145 H 18 144/78 H 99 03/14/21 08:00 03/14/21 09:12 03/14/21 09:12 03/14/21 09:12 03/14/21 09:12 Oxygen Flow Rate (L/min) 2 Oxygen Delivery Method Nasal Cannula Weight: 175 lb 14.862 oz Body Mass Index (BMI) 24.5 Intake & Output: Intake and Output for Last 24 Hours 03/12/21 03/13/21 03/14/21 23:59 23:59 23:59 Intake Total 1422.5 / 1422.5 2271.25 / 2271.25 50 / 50 Balance 1422.5 / 1422.5 2271.25 / 2271.25 50 / 50 Lab / Micro Data Result Diagrams: 03/14/21 05:00 03/14/21 05:00 Labs: Laboratory Results - last 24 hr 03/13/21 16:15: POC Glucose 192 H 03/13/21 22:01: POC Glucose 176 H 03/14/21 05:00: WBC 11.9 H, RBC 5.01, Hgb 15.4, Hct 45.7, MCV 91.2, MCH 30.7, MCHC 33.7, RDW Std Deviation 42.9, RDW Coeff of Josep 13.0, Plt Count 185, MPV 9.9, Immature Gran % (Auto) 0.400, Neut % (Auto) 86.0 H, Lymph % (Auto) 7.1 L, Tompkins % (Auto) 6.0, Eos % (Auto) 0.2, Baso % (Auto) 0.3, Absolute Neuts (auto) 10.3 H, Absolute Lymphs (auto) 0.85, Nucleated RBC % 0 03/14/21 05:00: Sodium 141, Potassium 3.3 L, Chloride 110 H, Carbon Dioxide 24.0, Anion Gap 7, BUN 18, Creatinine 1.03, Estim Creat Clear Calc 68.03, Est GFR (MDRD) Af Amer 91, Est GFR (MDRD) Non-Af 75, BUN/Creatinine Ratio 17.5, Glucose 184 H, Calcium 8.7 03/14/21 06:37: POC Glucose 196 H Physical Exam Const alert, oriented x3 and no apparent distress HEENT head/scalp atraumatic and moist oral mucous membranes Head and Scalp: normocephalic Eyes PERRL, EOMs intact bilaterally and conjunctivae normal Neck no lymphadenopathy, supple and no JVD Resp normal respiratory effort, no retractions, no use of accessory muscles and clear to auscultation bilaterally Cardio Rate: tachycardic Rhythm: regular rhythm GI normal to inspection, nondistended, normoactive bowel sounds, soft to palpation and non-tender Extremity normal to inspection, full ROM and no clubbing, cyanosis or edema Skin no rashes or lesions noted, no wounds, skin turgor normal and no jaundice Neuro CN's II-XII intact bilaterally Psych affect normal Assessment & Plan Assessment/Plan (1) AMS (altered mental status): (2) CVA (cerebral vascular accident): QUALIFIERS: CVA mechanism: unspecified Qualified Code(s): I63.9 - Cerebral infarction, unspecified (3) Encephalopathy acute: PLAN: Day 4: See subjective. Discharge planning: Patient comes from [facility] and will need Pre-Cert to return for ongoing alf therapy, /[facility]. Patient will be ready for discharge when pre-CERT has been obtained and #5 is stable. 1) acute encephalopathy secondary to Acute Stroke SOC Teleneuro consult; continue cardiac monitoring for A-Fib, initiate Aspirin/Statin. Brain MRI; acute infarction in the right lentiform nucleus/adjacent white matter. Echocardiogram demonstrated normal LV size and systolic function, an estimated EF of 60% and stage I diastolic dysfunction. Lipid panel demonstrates elevated LDL cholesterol 159 and elevated total cholesterol at 218. No hypoglycemia noted on Accu-Cheks, hemoglobin A1c is within normal limits. TSH within normal limits. Plan; continue aspirin and statin and cardiac monitoring as above, patient remained admitted until can be discharged back to [facility] for ongoing alf care. 2) Hypertensive urgency Observed in the ED, elevated overnight with systolic pressure in the 200's. Patients home amlodipine, clonidine, hydrochlorothiazide, lisinopril and metoprolol have been reinitiated, as they were on hold due to #1. Plan; continue home BP regimen, continue to monitor. 3) MARIO ALBERTO Resolved, currently 1.05. Plan; continue to monitor BMP, avoid nephrotoxins. 4) anxiety disorder/paranoid personality Continue BuSpar 5) A-Fib w/ RVR EKG obtained due to elevated heart rate and demonstrated A. fib with RVR. Home metoprolol has been reinitiated, will continue to monitor overnight. DVT prophylaxis - SCDs Patient seen by Demond Mayer PA-C, under the supervision of Dr. De La Rosa. Documented by User: Dr. Maycol De La Rosa MD 03/14/21 15:51 Objective Data Lab / Micro Data Result Diagrams: 03/14/21 05:00 03/14/21 05:00
--- NOTE | 2021-03-14 11:23 | CASEMGMT ---
Palliative screening tool completed for [employer]. Patient meets criteria for palliative consult, LISA Mayer updated and order received for palliative consult. YEE MEJIA called and faxed referral to [facility].
[2021-03-14 11:51] LABS: Bedside Glucose 260 mg/dL (70-110)
[2021-03-14] MEDS: cloNIDine HCl 0.2 MG Patch TD (12:12)
[2021-03-14] MEDS: hydroCHLOROthiazide 6.25mg TAB 12.5 MG PO (12:12)
--- NOTE | 2021-03-14 14:00 | CHAPLAIN ---
Type of Pastoral Visit _x__ Initial Visit ___ Follow-up Visit ___ On-call Visit ___ General Patient Visit ___ Spiritual Assessment ___ Family Conference ___ Bereavement ___ Rapid Response ___ Code Blue ___ Other (describe below) Pastoral Care Referral From _x__ Patient ___ Family ___ Nurse ___ Physician ___ Irrigation Flume Layer ___ Rural Sociologist ___ Other (describe below) Sacrament/Intervention _x__ Active listening ___ Anointing ___ Bahai ___ Bereavement ___ Communion ___ Brianne exploration ___ _x__ Life review ___ Prayer ___ Reconciliation ___ Sacrament of Sick _x__ Supportive presence ___ Wedding ___ Other (describe below) Pastoral Comments
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
--- NOTE | 2021-03-14 15:24 | TREXTCAR_ITS ---
Documented by User: Demond GONZALEZ 03/14/21 15:29 Diet 03/11/21 22:33 Diet: Cardiac - Heart Healthy Food consistency:: Regular Liquid Consistency:: Regular/Thin Dietary Modifications:: Consistent Carbohydrate Diet Comments: Direct supervision, MEATS CUT BITE SIZED, check for pocketing Problem/Diagnosis (1) AMS (altered mental status): Status: Acute (2) CVA (cerebral vascular accident): Status: Acute (3) Encephalopathy acute: Status: Acute Allergies/Procedures Done in Hospital Allergies amoxicillin Allergy (Verified 03/11/21 16:49) Unknown erythromycin base Allergy (Verified 03/11/21 19:01) NEEDS FOLLOW-UP propoxyphene [From Darvon] Allergy (Verified 03/11/21 16:49) Unknown sulfamethoxazole [From Bactrim] Allergy (Verified 03/11/21 19:01) NEEDS FOLLOW-UP trimethoprim [From Bactrim] Allergy (Verified 03/11/21 19:01) NEEDS FOLLOW-UP Type of Care/Length of Stay Estimated LOS: More Than 30 Days Type of Care Needed: Skilled Rehab Potential: Fair Prognosis: Fair Additional Orders/Day of Discharge Day of Discharge: 03/14/21 Dietary and Speech Recommendations Dietitian Recommendations/Changes: continue cardiac diet- consistency per MUSHROOM CUTTER. Will add CHO consistent to diet order. Discharge Plan Admission Admit Date/Time: 03/12/21 17:19 Primary Reason for Your Visit: Left sided weakness. Attending Provider: Maycol De La Rosa Primary Care Provider: Alvina Granados Discharge Orders/Prescriptions Prescriptions: New aspirin 81 mg tablet,delayed release (DR/EC) 81 mg PO DAILY Qty: 30 RF: 0 atorvastatin 40 mg tablet 40 mg PO DAILY Qty: 30 RF: 0 Continued clonidine 0.2 mg/24 hr Patch Weekly 1 patch TRANSDERMAL QWEEK RF: 0 potassium chloride 20 mEq Packet 20 meq PO DAILY RF: 0 famotidine [Pepcid] 20 mg Tablet 20 mg PO QHS RF: 0 amlodipine 10 mg Tablet 10 mg PO DAILY RF: 0 ferrous sulfate 325 mg (65 mg iron) Tablet 325 mg PO BID RF: 0 buspirone 10 mg Tablet 10 mg PO BID RF: 0 lisinopril 40 mg Tablet 40 mg PO DAILY RF: 0 hydrochlorothiazide 12.5 mg Tablet 12.5 mg PO DAILY RF: 0 cholecalciferol (vitamin D3) 50 mcg (2,000 unit) Capsule 50 mcg PO DAILY RF: 0 vitamin H02-jccqu acid 500-400 mcg Tablet 1 tab PO DAILY RF: 0 metoprolol succinate 100 mg Capsule,Sprinkle,Er 24hr 100 mg PO QHS RF: 0 tramadol 50 mg Tablet 50 mg PO BID PRN (Reason: Pain) RF: 0 naproxen [Naprosyn] 500 mg Tablet 500 mg PO BID PRN (Reason: Pain) RF: 0 polyethylene glycol Powder 17 ea miscellaneous DAILY PRN (Reason: Constipation) RF: 0 acetaminophen 325 mg Tablet 650 mg PO Q4H PRN (Reason: Pain) RF: 0 Referrals / Follow Up: Alvina Granados MD [Primary Care Provider] - Within 2 Weeks Disposition Disposition (needs filled in before D/C Order can be placed): Longterm Facility Documented by User: Dr. Maycol De La Rosa MD 03/14/21 15:51 Routine Orders/Code Status Routine Lab Work: BMP Code Status: Full Code Therapies Physical Therapy: Eval and Treat Occupational Therapy: Eval and Treat Speech Therapy: Eval and Treat Allergies/Procedures Done in Hospital Allergies amoxicillin Allergy (Verified 03/11/21 16:49) Unknown erythromycin base Allergy (Verified 03/11/21 19:01) NEEDS FOLLOW-UP propoxyphene [From Darvon] Allergy (Verified 03/11/21 16:49) Unknown sulfamethoxazole [From Bactrim] Allergy (Verified 03/11/21 19:01) NEEDS FOLLOW-UP trimethoprim [From Bactrim] Allergy (Verified 03/11/21 19:01) NEEDS FOLLOW-UP Procedures: 2-D Echocardiogram Discharge Plan Admission Admit Date/Time: 03/12/21 17:19 Primary Reason for Your Visit: Left sided weakness. Attending Provider: Maycol De La Rosa Primary Care Provider: Alvina Granados Discharge Orders/Prescriptions Prescriptions: New aspirin 81 mg tablet,delayed release (DR/EC) 81 mg PO DAILY Qty: 30 RF: 0 atorvastatin 40 mg tablet 40 mg PO DAILY Qty: 30 RF: 0 Continued clonidine 0.2 mg/24 hr Patch Weekly 1 patch TRANSDERMAL QWEEK RF: 0 potassium chloride 20 mEq Packet 20 meq PO DAILY RF: 0 famotidine [Pepcid] 20 mg Tablet 20 mg PO QHS RF: 0 amlodipine 10 mg Tablet 10 mg PO DAILY RF: 0 ferrous sulfate 325 mg (65 mg iron) Tablet 325 mg PO BID RF: 0 buspirone 10 mg Tablet 10 mg PO BID RF: 0 lisinopril 40 mg Tablet 40 mg PO DAILY RF: 0 hydrochlorothiazide 12.5 mg Tablet 12.5 mg PO DAILY RF: 0 cholecalciferol (vitamin D3) 50 mcg (2,000 unit) Capsule 50 mcg PO DAILY RF: 0 vitamin R80-djvwi acid 500-400 mcg Tablet 1 tab PO DAILY RF: 0 metoprolol succinate 100 mg Capsule,Sprinkle,Er 24hr 100 mg PO QHS RF: 0 tramadol 50 mg Tablet 50 mg PO BID PRN (Reason: Pain) RF: 0 naproxen [Naprosyn] 500 mg Tablet 500 mg PO BID PRN (Reason: Pain) RF: 0 polyethylene glycol Powder 17 ea miscellaneous DAILY PRN (Reason: Constipation) RF: 0 acetaminophen 325 mg Tablet 650 mg PO Q4H PRN (Reason: Pain) RF: 0 Referrals / Follow Up: Alvina Granados MD [Primary Care Provider] - Within 2 Weeks Disposition Disposition (needs filled in before D/C Order can be placed): Longterm Facility
--- NOTE | 2021-03-14 15:29 | PCM.DC.SUM ---
Documented by User: Demond GONZALEZ 03/14/21 15:39 Providers Date of Admission: 03/12/21 Primary Care Physician: Dr. Alvina Granados MD Reason For Visit: ACUTE CVA, ACUTE ENCEPHALOPATHY Diagnosis Discharge Diagnosis (1) AMS (altered mental status): Status: Acute Code(s): R41.82 - Altered mental status, unspecified Qualifiers: Altered mental status type: unspecified Qualified Code(s): R41.82 - Altered mental status, unspecified (2) CVA (cerebral vascular accident): Status: Acute Code(s): I63.9 - Cerebral infarction, unspecified Qualifiers: CVA mechanism: unspecified Qualified Code(s): I63.9 - Cerebral infarction, unspecified (3) Encephalopathy acute: Status: Acute Code(s): G93.40 - Encephalopathy, unspecified Medications at Discharge Home Medications acetaminophen 650 mg PO Q4H PRN 03/11/21 amlodipine 10 mg PO DAILY 03/11/21 buspirone 10 mg PO BID 03/11/21 cholecalciferol (vitamin D3) 50 mcg PO DAILY 03/11/21 clonidine 1 patch TRANSDERMAL QWEEK 03/11/21 famotidine [Pepcid] 20 mg PO QHS 03/11/21 ferrous sulfate 325 mg PO BID 03/11/21 hydrochlorothiazide 12.5 mg PO DAILY 03/11/21 lisinopril 40 mg PO DAILY 03/11/21 metoprolol succinate 100 mg PO QHS 03/11/21 naproxen [Naprosyn] 500 mg PO BID PRN 03/11/21 polyethylene glycol 17 ea MISCELLANEOUS DAILY PRN 03/11/21 potassium chloride 20 meq PO DAILY 03/11/21 tramadol 50 mg PO BID PRN 03/11/21 vitamin H22-bjqdg acid 1 tab PO DAILY 03/11/21 aspirin 81 mg PO DAILY #30 tab 03/14/21 atorvastatin 40 mg PO DAILY #30 tab 03/14/21 Hospital Course Summary of Care Provided Minutes Spent on Discharge: 35 Hospital Course: Disposition; patient to be discharged back to [facility] where he is a long-term resident. 1) acute encephalopathy secondary to Acute Stroke SOC Teleneuro consult; continue cardiac monitoring for A-Fib, initiate Aspirin/Statin. Brain MRI; acute infarction in the right lentiform nucleus/adjacent white matter. Echocardiogram demonstrated normal LV size and systolic function, an estimated EF of 60% and stage I diastolic dysfunction. Lipid panel demonstrates elevated LDL cholesterol 159 and elevated total cholesterol at 218. No hypoglycemia noted on Accu-Cheks, hemoglobin A1c is within normal limits. TSH within normal limits. Plan; discharge back to [facility] where patient is a long-term resident, initiate aspirin 81 mg p.o. daily, initiate statin 40 mg p.o. daily, follow-up with primary care provider within the next 2 weeks. 2) Hypertensive urgency Resolved, patient's blood pressure is now within normal limits and patient's home BP regimen has been reinitiated. Plan; continue amlodipine, clonidine, hydrochlorothiazide, lisinopril and metoprolol. 3) MARIO ALBERTO Resolved, currently 1.05. 4) anxiety disorder/paranoid personality Continue BuSpar 5) A-Fib w/ RVR Resolved. EKG obtained due to elevated heart rate and demonstrated A. fib with RVR. Home metoprolol was reinitiated and patient has returned to sinus rhythm. Patient seen by Demond Mayer PA-C, under the supervision of Dr. De La Rosa. Physical Exam Narrative Patient is a 75-year-old male comfortably resting in bed, alert and oriented x3. Patient reports improvement of left-sided weakness from yesterday. Denies chest pain, shortness of breath, palpitations, hemoptysis, sputum production, fever, chills, N/V/D. Const alert, oriented x3 and no apparent distress HEENT normocephalic, head/scalp atraumatic and hearing grossly normal bilaterally Eyes PERRL, EOMs intact bilaterally and conjunctivae normal Neck no lymphadenopathy, supple and no JVD Resp normal respiratory effort, no retractions, no use of accessory muscles and clear to auscultation bilaterally Cardio regular rate, regular rhythm, no murmurs and no JVD GI normal to inspection, nondistended, normoactive bowel sounds, soft to palpation and non-tender Extremity normal to inspection, full ROM and no clubbing, cyanosis or edema Skin no rashes or lesions noted, no wounds and skin turgor normal Neuro CN's II-XII intact bilaterally Neuro Narrative: Patient reports improvement of left-sided weakness from yesterday. Psych affect normal Weight / BMI Weight Weight: 175 lb 14.862 oz Body Mass Index (BMI) 24.5 ABG / Lab / Microbiology Data Result Diagrams: 03/14/21 05:00 03/14/21 05:00 Laboratory: Laboratory Results - last 24 hr 03/13/21 16:15: POC Glucose 192 H 03/13/21 22:01: POC Glucose 176 H 03/14/21 05:00: WBC 11.9 H, RBC 5.01, Hgb 15.4, Hct 45.7, MCV 91.2, MCH 30.7, MCHC 33.7, RDW Std Deviation 42.9, RDW Coeff of Josep 13.0, Plt Count 185, MPV 9.9, Immature Gran % (Auto) 0.400, Neut % (Auto) 86.0 H, Lymph % (Auto) 7.1 L, Ellis % (Auto) 6.0, Eos % (Auto) 0.2, Baso % (Auto) 0.3, Absolute Neuts (auto) 10.3 H, Absolute Lymphs (auto) 0.85, Nucleated RBC % 0 03/14/21 05:00: Sodium 141, Potassium 3.3 L, Chloride 110 H, Carbon Dioxide 24.0, Anion Gap 7, BUN 18, Creatinine 1.03, Estim Creat Clear Calc 68.03, Est GFR (MDRD) Af Amer 91, Est GFR (MDRD) Non-Af 75, BUN/Creatinine Ratio 17.5, Glucose 184 H, Calcium 8.7 03/14/21 06:37: POC Glucose 196 H 03/14/21 11:20: POC Glucose 260 H Meaningful Use Info Meaningful Use Diagnoses (Choose all that apply): Ischemic CVA CVA Therapy Assessed for PT,OT and/or ST?: Yes Ischemic Stroke Antithrombotic order at d/c?: Yes Dx of Atrial fib/flutter?: Yes Anticoagulant at discharge?: No Reason anticoagulant not ordered: Treatment not Indicated Statins at discharge?: Yes Primary Dx Acute Ischemic CVA?: Yes IV tPA ordered during stay?: No Reason IV t-PA not ordered: Treatment not Indicated Discharge Plan Admission Admit Date/Time: 03/12/21 17:19 Primary Reason for Your Visit: Left sided weakness. Attending Provider: Maycol De La Rosa Primary Care Provider: Alvina Granados Discharge Orders/Prescriptions Prescriptions: New aspirin 81 mg tablet,delayed release (DR/EC) 81 mg PO DAILY Qty: 30 RF: 0 atorvastatin 40 mg tablet 40 mg PO DAILY Qty: 30 RF: 0 Continued clonidine 0.2 mg/24 hr Patch Weekly 1 patch TRANSDERMAL QWEEK RF: 0 potassium chloride 20 mEq Packet 20 meq PO DAILY RF: 0 famotidine [Pepcid] 20 mg Tablet 20 mg PO QHS RF: 0 amlodipine 10 mg Tablet 10 mg PO DAILY RF: 0 ferrous sulfate 325 mg (65 mg iron) Tablet 325 mg PO BID RF: 0 buspirone 10 mg Tablet 10 mg PO BID RF: 0 lisinopril 40 mg Tablet 40 mg PO DAILY RF: 0 hydrochlorothiazide 12.5 mg Tablet 12.5 mg PO DAILY RF: 0 cholecalciferol (vitamin D3) 50 mcg (2,000 unit) Capsule 50 mcg PO DAILY RF: 0 vitamin X83-dxzvb acid 500-400 mcg Tablet 1 tab PO DAILY RF: 0 metoprolol succinate 100 mg Capsule,Sprinkle,Er 24hr 100 mg PO QHS RF: 0 tramadol 50 mg Tablet 50 mg PO BID PRN (Reason: Pain) RF: 0 naproxen [Naprosyn] 500 mg Tablet 500 mg PO BID PRN (Reason: Pain) RF: 0 polyethylene glycol Powder 17 ea miscellaneous DAILY PRN (Reason: Constipation) RF: 0 acetaminophen 325 mg Tablet 650 mg PO Q4H PRN (Reason: Pain) RF: 0 Referrals / Follow Up: Alvina Granados MD [Primary Care Provider] - Within 2 Weeks Disposition Disposition (needs filled in before D/C Order can be placed): Custodial Facility Documented by User: Dr. Maycol De La Rosa MD 03/14/21 15:55 Providers Date of Admission: 03/12/21 Reason For Visit: ACUTE CVA, ACUTE ENCEPHALOPATHY Medications at Discharge Home Medications acetaminophen 650 mg PO Q4H PRN 03/11/21 amlodipine 10 mg PO DAILY 03/11/21 buspirone 10 mg PO BID 03/11/21 cholecalciferol (vitamin D3) 50 mcg PO DAILY 03/11/21 clonidine 1 patch TRANSDERMAL QWEEK 03/11/21 famotidine [Pepcid] 20 mg PO QHS 03/11/21 ferrous sulfate 325 mg PO BID 03/11/21 hydrochlorothiazide 12.5 mg PO DAILY 03/11/21 lisinopril 40 mg PO DAILY 03/11/21 metoprolol succinate 100 mg PO QHS 03/11/21 naproxen [Naprosyn] 500 mg PO BID PRN 03/11/21 polyethylene glycol 17 ea MISCELLANEOUS DAILY PRN 03/11/21 potassium chloride 20 meq PO DAILY 03/11/21 tramadol 50 mg PO BID PRN 03/11/21 vitamin N58-mgani acid 1 tab PO DAILY 03/11/21 aspirin 81 mg PO DAILY #30 tab 03/14/21 atorvastatin 40 mg PO DAILY #30 tab 03/14/21 ABG / Lab / Microbiology Data Result Diagrams: 03/14/21 05:00 03/14/21 05:00 Discharge Plan Admission Admit Date/Time: 03/12/21 17:19 Primary Reason for Your Visit: Left sided weakness. Attending Provider: Maycol De La Rosa Primary Care Provider: Alvina Granados Discharge Orders/Prescriptions Prescriptions: New aspirin 81 mg tablet,delayed release (DR/EC) 81 mg PO DAILY Qty: 30 RF: 0 atorvastatin 40 mg tablet 40 mg PO DAILY Qty: 30 RF: 0 Continued clonidine 0.2 mg/24 hr Patch Weekly 1 patch TRANSDERMAL QWEEK RF: 0 potassium chloride 20 mEq Packet 20 meq PO DAILY RF: 0 famotidine [Pepcid] 20 mg Tablet 20 mg PO QHS RF: 0 amlodipine 10 mg Tablet 10 mg PO DAILY RF: 0 ferrous sulfate 325 mg (65 mg iron) Tablet 325 mg PO BID RF: 0 buspirone 10 mg Tablet 10 mg PO BID RF: 0 lisinopril 40 mg Tablet 40 mg PO DAILY RF: 0 hydrochlorothiazide 12.5 mg Tablet 12.5 mg PO DAILY RF: 0 cholecalciferol (vitamin D3) 50 mcg (2,000 unit) Capsule 50 mcg PO DAILY RF: 0 vitamin S19-ivzzx acid 500-400 mcg Tablet 1 tab PO DAILY RF: 0 metoprolol succinate 100 mg Capsule,Sprinkle,Er 24hr 100 mg PO QHS RF: 0 tramadol 50 mg Tablet 50 mg PO BID PRN (Reason: Pain) RF: 0 naproxen [Naprosyn] 500 mg Tablet 500 mg PO BID PRN (Reason: Pain) RF: 0 polyethylene glycol Powder 17 ea miscellaneous DAILY PRN (Reason: Constipation) RF: 0 acetaminophen 325 mg Tablet 650 mg PO Q4H PRN (Reason: Pain) RF: 0 Referrals / Follow Up: Alvina Granados MD [Primary Care Provider] - Within 2 Weeks Disposition Disposition (needs filled in before D/C Order can be placed): Custodial Facility Charges/Coding Addendum Addendum: Dr. De La Rosa: I personally reviewed the chart and examined the patient, and agree with the above findings. 75-year-old male presented from the [facility] with acute left-sided numbness tingling and weakness. CT of his brain hinted at the possibility of an infarct, MRI was obtained today and demonstrated a right lentiform nucleus acute infarct. We will consult SOC neurology and keep him here overnight and [facility] once he obtains pre-CERT. It does appear that his altered mental status has resolved. Echo was unremarkable. Continue with aspirin and Lipitor. 03/13/2021: Doing well, deficits appear to be improving. He still confused but this is likely his baseline given his dementia. He knows who he is and what year it is to be does not know where he is. Will attempt to reattach the telemetry leads to see if he has A. fib. Unfortunately I am unable to find any contacts for him therefore unsure as to how to obtain consent if a loop recorder were to be needed. We will need to obtain pre-CERT prior to return to the halfway. 03/14/2021: Doing well, his speech issues seem to be likely at baseline as does the left limb drift. On review of telemetry which he was keeping on, there is been no identification of A. fib. He may benefit from an outpatient event monitor which will be difficult to keep on him given his dementia. The other possibility is a loop recorder however he does not have any family contacts to be able to make the decisions for him therefore he will likely need a guardian assigned to make medical decisions for him in the point for this would be to make sure that there is or is not A. fib as this will dictate whether or not he is to be an anticoagulant. In the meantime would continue with aspirin and his Lipitor. This morning he was tachycardic and hypertensive however his home medications have been discontinued in favor of permissive hypertension secondary to his stroke, with the reinstitution of his home medications his heart rate promptly came down as did his blood pressure. Plan will be for discharge back to SNF with palliative care for increased assistance and he should see his PCP in 3 to 5 days as well as neurology as an outpatient if able. Visit Charges Inpatient E&M: 20252 Disch Hosp
--- NOTE | 2021-03-14 15:41 | CASEMGMT ---
NAZARIO spoke with Suzy at [facility] and asked if patient can return today and she said that is fine. NAZARIO notified physician. Await orders. Hailey ESPINAL
--- NOTE | 2021-03-14 16:31 | NURSING ---
report called to [facility] nurse Francy Tan
[2021-03-16 14:27] LABS: PSA, Total 1.8 ng/mL (0.0-4.0)
== END 2021-03-14 17:02 | disposition skilled nursing facility (03) | DRG 65 ==
LOC: ED 21:36 → PCU 21:48
PROVIDERS: Physician Assistant; Admitting Provider Hospitalist; Emergency Provider Emergency Medicine; PCP Internal Medicine; Visit Provider Family Medicine
DX: I63.9 Cerebral infarction, unspecified (principal); G93.49 Other encephalopathy; N17.9 Acute kidney failure, unspecified; G81.94 Hemiplegia, unspecified affecting left nondominant side; R29.703 NIHSS score 3; R29.701 NIHSS score 1; I16.0 Hypertensive urgency; R31.29 Other microscopic hematuria; I48.91 Unspecified atrial fibrillation; E11.9 Type 2 diabetes mellitus without complications; I10 Essential (primary) hypertension; E78.5 Hyperlipidemia, unspecified; F03.90 Unspecified dementia, unspecified severity, without behavioral disturbance, psychotic disturbance, mood disturbance, and anxiety; F60.0 Paranoid personality disorder; F41.9 Anxiety disorder, unspecified; Z79.899 Other long term (current) drug therapy; Z86.16 Personal history of COVID-19
CPT/HCPCS: 36415; 70450; 70496; 70498; 70551; 80048; 80053; 80061; 81001; 82140; 82962; 83036; 83735; 84100; 84153; 84443; 85025; 87426; 92507; 92526; 92610; 93005; 93306; 94762; 97110; 97162; 97166; 97530; 97803; 99285; J7030; Q9967; A4216; J3490

== ENCOUNTER → 2021-03-17 | Outpatient (REF) | payer MEDICARE, MEDICAID, SELFPAY ==
[2021-03-13 20:11] VITALS: BMI 24.5
[2021-03-17 07:23] LABS: Hematocrit 51.1 % (40-54); Hemoglobin 17.4 g/dL (13.0-16.5); Mean Corp Hgb Conc 34.1 g/dL (32-36); Mean Corpuscular Volume 90.9 fL (80-94); Mean Platelet Vol. 10.3 fl (6.2-12.0); Platelet Count 211 K/mm3 (150-450); RBC Distribution Width CV 12.8 % (11.6-14.6); RBC Distribution Width SD 42.3 fl (35.1-43.9); Red Blood Count 5.62 M/mm3 (4.6-6.2); White Blood Count 13.3 K/mm3 (4.4-11.0)
[2021-03-17 08:01] LABS: ALB/GLOB Ratio 0.9 RATIO (0.9-2.4); AST(SGOT) 30 U/L (15-37); Alanine Aminotransfer ALT/SGPT 30 U/L (16-61); Albumin, Serum 3.5 g/dL (3.2-5.0); Alkaline Phosphatase 136 U/L (45-117); Anion Gap 9 (5-15); BUN 34 mg/dL (7-18); Calcium,Total 8.7 mg/dL (8.5-10.1); Chloride 107 mmol/L (98-107); Creatinine, Serum 1.31 mg/dL (0.70-1.30); EST Glomerular Filtration Rate 57 mL/min (>60); Est Glom Filt Rate - Afr Amer 69 mL/min (>60); Globulin 3.8 g/dL (2.2-4.2); Glucose 137 mg/dL (74-106); Potassium 3.5 mmol/L (3.5-5.1); Protein, Total 7.3 g/dL (6.4-8.2); Sodium Level 141 mmol/L (136-145)
[2021-03-17 08:44] LABS: Hemoglobin A1c 6.4 % (3.8-5.6)
== END | disposition home or self-care (01) ==
LOC: OLS.SW300 05:00
PROVIDERS: PCP Internal Medicine; Visit Provider Internal Medicine
DX: E11.9 Type 2 diabetes mellitus without complications (principal); I10 Essential (primary) hypertension; E78.5 Hyperlipidemia, unspecified
CPT/HCPCS: 36415; 80053; 83036; 85027

== ENCOUNTER → 2021-03-24 | Outpatient (REF) | payer MEDICARE, MEDICAID, SELFPAY ==
[2021-03-13 20:11] VITALS: BMI 24.5
[2021-03-24 08:15] LABS: Hematocrit 47.4 % (40-54); Hemoglobin 16.4 g/dL (13.0-16.5); Mean Corp Hgb Conc 34.6 g/dL (32-36); Mean Corpuscular Hgb 31.2 pg (27.0-32.0); Mean Corpuscular Volume 90.3 fL (80-94); Mean Platelet Vol. 10.7 fl (6.2-12.0); Platelet Count 195 K/mm3 (150-450); RBC Distribution Width CV 12.9 % (11.6-14.6); RBC Distribution Width SD 42.3 fl (35.1-43.9); Red Blood Count 5.25 M/mm3 (4.6-6.2); White Blood Count 7.3 K/mm3 (4.4-11.0)
[2021-03-24 08:44] LABS: AST(SGOT) 17 U/L (15-37); Alanine Aminotransfer ALT/SGPT 25 U/L (16-61); Albumin, Serum 3.2 g/dL (3.2-5.0); Alkaline Phosphatase 115 U/L (45-117); Anion Gap 5 (5-15); BUN 26 mg/dL (7-18); BUN/Creat Ratio 17.7 RATIO (10-20); Calcium,Total 8.7 mg/dL (8.5-10.1); Chloride 107 mmol/L (98-107); Creatinine, Serum 1.47 mg/dL (0.70-1.30); EST Glomerular Filtration Rate 50 mL/min (>60); Est Glom Filt Rate - Afr Amer 60 mL/min (>60); Globulin 3.2 g/dL (2.2-4.2); Glucose 103 mg/dL (74-106); Magnesium 2.5 mg/dL (1.6-2.6); Potassium 2.9 mmol/L (3.5-5.1); Protein, Total 6.4 g/dL (6.4-8.2); Sodium Level 143 mmol/L (136-145)
== END | disposition home or self-care (01) ==
LOC: OLS.SW1020 05:00
PROVIDERS: PCP Internal Medicine; Visit Provider Internal Medicine
DX: E11.9 Type 2 diabetes mellitus without complications (principal); E78.5 Hyperlipidemia, unspecified
CPT/HCPCS: 36415; 80053; 83735; 85027

== ENCOUNTER → 2021-03-31 05:00 | Outpatient (REF) | payer MEDICARE, MEDICAID, SELFPAY ==
[2021-03-13 20:11] VITALS: BMI 24.5
[2021-03-31 07:33] LABS: Hematocrit 52.3 % (40-54); Hemoglobin 17.5 g/dL (13.0-16.5); Mean Corp Hgb Conc 33.5 g/dL (32-36); Mean Corpuscular Hgb 30.8 pg (27.0-32.0); Mean Corpuscular Volume 91.9 fL (80-94); Mean Platelet Vol. 11.3 fl (6.2-12.0); Platelet Count 192 K/mm3 (150-450); RBC Distribution Width SD 43.7 fl (35.1-43.9); Red Blood Count 5.69 M/mm3 (4.6-6.2); White Blood Count 8.7 K/mm3 (4.4-11.0)
[2021-03-31 08:07] LABS: AST(SGOT) 16 U/L (15-37); Alanine Aminotransfer ALT/SGPT 30 U/L (16-61); Albumin, Serum 3.7 g/dL (3.2-5.0); Alkaline Phosphatase 128 U/L (45-117); Anion Gap 5 (5-15); BUN 27 mg/dL (7-18); BUN/Creat Ratio 20.9 RATIO (10-20); Calcium,Total 9.4 mg/dL (8.5-10.1); Chloride 109 mmol/L (98-107); Creatinine, Serum 1.29 mg/dL (0.70-1.30); EST Glomerular Filtration Rate 58 mL/min (>60); Est Glom Filt Rate - Afr Amer 70 mL/min (>60); Globulin 3.7 g/dL (2.2-4.2); Glucose 119 mg/dL (74-106); Magnesium 2.2 mg/dL (1.6-2.6); Potassium 3.3 mmol/L (3.5-5.1); Protein, Total 7.4 g/dL (6.4-8.2); Sodium Level 142 mmol/L (136-145)
== END ==
LOC: OLS.SW1020 05:00
PROVIDERS: PCP Internal Medicine; Visit Provider Internal Medicine
DX: E11.9 Type 2 diabetes mellitus without complications (principal); E78.5 Hyperlipidemia, unspecified; I10 Essential (primary) hypertension
CPT/HCPCS: 36415; 80053; 83735; 85027

== ENCOUNTER → 2021-04-05 05:00 | Outpatient (REF) | payer MEDICARE, MEDICAID, SELFPAY ==
[2021-03-13 20:11] VITALS: BMI 24.5
[2021-04-05 07:56] LABS: Hematocrit 45.9 % (40-54); Hemoglobin 15.5 g/dL (13.0-16.5); Mean Corp Hgb Conc 33.8 g/dL (32-36); Mean Corpuscular Hgb 30.8 pg (27.0-32.0); Mean Corpuscular Volume 91.3 fL (80-94); Mean Platelet Vol. 10.8 fl (6.2-12.0); Platelet Count 153 K/mm3 (150-450); RBC Distribution Width CV 12.8 % (11.6-14.6); RBC Distribution Width SD 42.1 fl (35.1-43.9); Red Blood Count 5.03 M/mm3 (4.6-6.2); White Blood Count 6.6 K/mm3 (4.4-11.0)
[2021-04-05 08:09] LABS: Anion Gap 4 (5-15); BUN 19 mg/dL (7-18); BUN/Creat Ratio 16.2 RATIO (10-20); Calcium,Total 8.5 mg/dL (8.5-10.1); Chloride 107 mmol/L (98-107); Creatinine, Serum 1.17 mg/dL (0.70-1.30); EST Glomerular Filtration Rate 65 mL/min (>60); Est Glom Filt Rate - Afr Amer 79 mL/min (>60); Glucose 107 mg/dL (74-106); Potassium 3.9 mmol/L (3.5-5.1); Sodium Level 141 mmol/L (136-145)
== END ==
LOC: OLS.SW1020 05:00
PROVIDERS: PCP Internal Medicine; Referring Provider Internal Medicine; Visit Provider Internal Medicine
DX: I10 Essential (primary) hypertension (principal); P61.1 Polycythemia neonatorum; D75.89 Other specified diseases of blood and blood-forming organs
CPT/HCPCS: 36415; 80048; 81270; 82668; 85027

== ENCOUNTER → 2021-04-07 05:00 | Outpatient (REF) | payer MEDICARE, MEDICAID, SELFPAY ==
[2021-03-13 20:11] VITALS: BMI 24.5
[2021-04-07 07:50] LABS: Hematocrit 44.7 % (40-54); Hemoglobin 14.6 g/dL (13.0-16.5); Mean Corp Hgb Conc 32.7 g/dL (32-36); Mean Corpuscular Hgb 30.5 pg (27.0-32.0); Mean Corpuscular Volume 93.3 fL (80-94); Mean Platelet Vol. 10.8 fl (6.2-12.0); Platelet Count 142 K/mm3 (150-450); RBC Distribution Width CV 12.9 % (11.6-14.6); Red Blood Count 4.79 M/mm3 (4.6-6.2); White Blood Count 6.4 K/mm3 (4.4-11.0)
[2021-04-07 08:02] LABS: ALB/GLOB Ratio 0.9 RATIO (0.9-2.4); AST(SGOT) 13 U/L (15-37); Alanine Aminotransfer ALT/SGPT 24 U/L (16-61); Albumin, Serum 2.9 g/dL (3.2-5.0); Alkaline Phosphatase 103 U/L (45-117); Anion Gap 7 (5-15); BUN 25 mg/dL (7-18); BUN/Creat Ratio 20.8 RATIO (10-20); Calcium,Total 8.7 mg/dL (8.5-10.1); Chloride 109 mmol/L (98-107); EST Glomerular Filtration Rate 63 mL/min (>60); Est Glom Filt Rate - Afr Amer 76 mL/min (>60); Globulin 3.1 g/dL (2.2-4.2); Glucose 135 mg/dL (74-106); Magnesium 2.1 mg/dL (1.6-2.6); Potassium 3.7 mmol/L (3.5-5.1); Sodium Level 143 mmol/L (136-145)
== END ==
LOC: OLS.SW1020 05:00
PROVIDERS: PCP Internal Medicine; Visit Provider Internal Medicine
DX: E11.9 Type 2 diabetes mellitus without complications (principal); I10 Essential (primary) hypertension; E78.5 Hyperlipidemia, unspecified
CPT/HCPCS: 36415; 80053; 83735; 85027

== ENCOUNTER → 2021-04-08 05:00 | Outpatient (REF) | payer MEDICARE, MEDICAID, SELFPAY ==
[2021-03-13 20:11] VITALS: BMI 24.5
[2021-04-08 07:55] LABS: Hematocrit 42.9 % (40-54); Hemoglobin 14.6 g/dL (13.0-16.5); Mean Corpuscular Hgb 31.3 pg (27.0-32.0); Mean Corpuscular Volume 91.9 fL (80-94); Mean Platelet Vol. 10.6 fl (6.2-12.0); Platelet Count 131 K/mm3 (150-450); RBC Distribution Width CV 12.9 % (11.6-14.6); Red Blood Count 4.67 M/mm3 (4.6-6.2); White Blood Count 6.6 K/mm3 (4.4-11.0)
[2021-04-08 07:57] LABS: ALB/GLOB Ratio 0.9 RATIO (0.9-2.4); AST(SGOT) 14 U/L (15-37); Alanine Aminotransfer ALT/SGPT 19 U/L (16-61); Albumin, Serum 2.9 g/dL (3.2-5.0); Alkaline Phosphatase 101 U/L (45-117); Anion Gap 4 (5-15); BUN 26 mg/dL (7-18); BUN/Creat Ratio 22.4 RATIO (10-20); Calcium,Total 8.5 mg/dL (8.5-10.1); Chloride 111 mmol/L (98-107); Creatinine, Serum 1.16 mg/dL (0.70-1.30); EST Glomerular Filtration Rate 66 mL/min (>60); Est Glom Filt Rate - Afr Amer 79 mL/min (>60); Globulin 3.3 g/dL (2.2-4.2); Glucose 131 mg/dL (74-106); Potassium 3.6 mmol/L (3.5-5.1); Protein, Total 6.2 g/dL (6.4-8.2); Sodium Level 144 mmol/L (136-145)
== END ==
LOC: OLS.SW1020 05:00
PROVIDERS: PCP Internal Medicine; Referring Provider Internal Medicine; Visit Provider Internal Medicine
DX: E11.9 Type 2 diabetes mellitus without complications (principal); I10 Essential (primary) hypertension; E78.5 Hyperlipidemia, unspecified
CPT/HCPCS: 36415; 80053; 83735; 85027

== ENCOUNTER → 2021-04-12 05:00 | Outpatient (REF) | payer MEDICARE, MEDICAID, SELFPAY ==
[2021-03-13 20:11] VITALS: BMI 24.5
[2021-04-12 07:52] LABS: Hematocrit 46.3 % (40-54); Hemoglobin 15.6 g/dL (13.0-16.5); Mean Corp Hgb Conc 33.7 g/dL (32-36); Mean Corpuscular Hgb 30.8 pg (27.0-32.0); Mean Corpuscular Volume 91.5 fL (80-94); Mean Platelet Vol. 10.2 fl (6.2-12.0); Platelet Count 153 K/mm3 (150-450); RBC Distribution Width CV 12.8 % (11.6-14.6); RBC Distribution Width SD 42.5 fl (35.1-43.9); Red Blood Count 5.06 M/mm3 (4.6-6.2); White Blood Count 7.1 K/mm3 (4.4-11.0)
[2021-04-12 08:10] LABS: Anion Gap 6 (5-15); BUN 21 mg/dL (7-18); BUN/Creat Ratio 18.3 RATIO (10-20); Calcium,Total 8.7 mg/dL (8.5-10.1); Chloride 109 mmol/L (98-107); Creatinine, Serum 1.15 mg/dL (0.70-1.30); EST Glomerular Filtration Rate 66 mL/min (>60); Est Glom Filt Rate - Afr Amer 80 mL/min (>60); Glucose 130 mg/dL (74-106); Potassium 3.3 mmol/L (3.5-5.1); Sodium Level 143 mmol/L (136-145)
== END ==
LOC: OLS.SW1020 05:00
PROVIDERS: PCP Internal Medicine; Visit Provider Internal Medicine
DX: I10 Essential (primary) hypertension (principal)
CPT/HCPCS: 36415; 80048; 85027

== ENCOUNTER → 2021-04-19 05:00 | Outpatient (REF) | payer MEDICARE, MEDICAID, SELFPAY ==
[2021-03-13 20:11] VITALS: BMI 24.5
[2021-04-19 08:24] LABS: Hematocrit 44.3 % (40-54); Mean Corp Hgb Conc 33.9 g/dL (32-36); Mean Corpuscular Hgb 31.3 pg (27.0-32.0); Mean Corpuscular Volume 92.5 fL (80-94); Mean Platelet Vol. 10.7 fl (6.2-12.0); Platelet Count 163 K/mm3 (150-450); RBC Distribution Width CV 13.3 % (11.6-14.6); RBC Distribution Width SD 44.4 fl (35.1-43.9); Red Blood Count 4.79 M/mm3 (4.6-6.2); White Blood Count 6.6 K/mm3 (4.4-11.0)
[2021-04-19 08:34] LABS: Anion Gap 4 (5-15); BUN 21 mg/dL (7-18); BUN/Creat Ratio 18.3 RATIO (10-20); Calcium,Total 8.6 mg/dL (8.5-10.1); Chloride 109 mmol/L (98-107); Creatinine, Serum 1.15 mg/dL (0.70-1.30); EST Glomerular Filtration Rate 66 mL/min (>60); Est Glom Filt Rate - Afr Amer 80 mL/min (>60); Glucose 105 mg/dL (74-106); Potassium 3.2 mmol/L (3.5-5.1); Sodium Level 143 mmol/L (136-145)
== END ==
LOC: OLS.SW1020 05:00
PROVIDERS: PCP Internal Medicine; Referring Provider Internal Medicine; Visit Provider Internal Medicine
DX: E11.9 Type 2 diabetes mellitus without complications (principal); I10 Essential (primary) hypertension; M62.81 Muscle weakness (generalized)
CPT/HCPCS: 36415; 80048; 85027

== ENCOUNTER → 2021-04-26 05:00 | Outpatient (REF) | payer MEDICARE, MEDICAID, SELFPAY ==
[2021-04-26 07:45] LABS: Hematocrit 49.8 % (40-54); Hemoglobin 15.8 g/dL (13.0-16.5); Mean Corp Hgb Conc 31.7 g/dL (32-36); Mean Corpuscular Volume 97.8 fL (80-94); Platelet Count 152 K/mm3 (150-450); RBC Distribution Width CV 13.4 % (11.6-14.6); Red Blood Count 5.09 M/mm3 (4.6-6.2); White Blood Count 6.9 K/mm3 (4.4-11.0)
[2021-04-26 08:06] LABS: Anion Gap 4 (5-15); BUN 25 mg/dL (7-18); BUN/Creat Ratio 21.9 RATIO (10-20); Calcium,Total 8.8 mg/dL (8.5-10.1); Chloride 110 mmol/L (98-107); Creatinine, Serum 1.14 mg/dL (0.70-1.30); EST Glomerular Filtration Rate 67 mL/min (>60); Est Glom Filt Rate - Afr Amer 81 mL/min (>60); Glucose 102 mg/dL (74-106); Potassium 3.6 mmol/L (3.5-5.1); Sodium Level 140 mmol/L (136-145)
== END ==
LOC: OLS.SW1020 05:00
PROVIDERS: PCP Internal Medicine; Visit Provider Internal Medicine
DX: I10 Essential (primary) hypertension (principal)
CPT/HCPCS: 36415; 80048; 85027

== ENCOUNTER → 2021-06-08 05:00 | Outpatient (REF) | payer MEDICARE, MEDICAID, SELFPAY ==
[2021-06-08 08:26] LABS: Anion Gap 7 (5-15); BUN 21 mg/dL (7-18); BUN/Creat Ratio 18.6 RATIO (10-20); Calcium,Total 8.5 mg/dL (8.5-10.1); Chloride 108 mmol/L (98-107); Cholesterol 165 mg/dL (200); Creatinine, Serum 1.13 mg/dL (0.70-1.30); EST Glomerular Filtration Rate 68 mL/min (>60); Est Glom Filt Rate - Afr Amer 82 mL/min (>60); Glucose 109 mg/dL (74-106); High Density Lipoprotein 43 mg/dL; Sodium Level 144 mmol/L (136-145); Triglycerides 72 mg/dL; Very Low Density Lipoprotein 14 mg/dL (5-40)
== END ==
LOC: OLS.SW1020 05:00
PROVIDERS: PCP Internal Medicine; Visit Provider Internal Medicine
DX: E11.9 Type 2 diabetes mellitus without complications (principal); I10 Essential (primary) hypertension; E78.5 Hyperlipidemia, unspecified
CPT/HCPCS: 36415; 80048; 80061; 83036

== ENCOUNTER → 2021-09-05 04:00 | Outpatient (REF) | payer MEDICARE, MEDICAID, SELFPAY ==
[2021-09-05 08:43] LABS: Bacteria 0 SEEN /hpf (None Seen); Mucous, Urine 0 SEEN /hpf (<or=2+); Red Blood Cells-Urine 0 SEEN /hpf (0-5); Squamous Epithelial Cells - UA 0 SEEN /hpf (0-5); White Blood Cells 0 SEEN /hpf (0-5)
[2021-09-05 09:05] LABS: Color, Urine Yellow (Yellow); Glucose, Dipstick Normal (Normal); Ketone-Dipstick 15 mg/dl (Negative); Leukocyte Esterase-Dipstick Negative /ul (Negative); Nitrite-Dipstick Negative (Negative); Occult Blood-Urine Negative /ul (Negative); Protein-Dipstick Negative (Negative); Urine Bilirubin Dipstick Negative (Negative); Urine Clarity Clear (Clear); Urine Urobilinogen Normal (Normal)
[2021-09-05 09:06] LABS: Absolute Lymphocyte Count 2.28 X10^3/uL (0.83-4.51); Absolute Neutrophil Count 5.8 X10^3/uL (2.0-7.7); Basophil# 0.08 X10^3/uL; Basophil% 0.9 % (0-1); Eosinophil# 0.21 X10^3/uL; Eosinophils% 2.3 % (0-5); Hematocrit 51.4 % (40-54); Hemoglobin 16.8 g/dL (13.0-16.5); Lymphocyte # 2.28 X10^3/ul (0.83-4.51); Lymphocyte % 25.3 % (19-41); Mean Corp Hgb Conc 32.7 g/dL (32-36); Mean Corpuscular Hgb 31.7 pg (27.0-32.0); Monocyte# 0.67 X10^3/uL; Monocyte% 7.4 % (0-10); NRBC Flagged by Analyzer 0 % (0-5); Neutrophil # 5.75 X10^3/uL (2.7-7.7); Neutrophil % 63.8 % (47-70); Platelet Count 203 K/mm3 (150-450); RBC Distribution Width SD 46.5 fl (35.1-43.9)
[2021-09-05 09:29] LABS: Anion Gap 7 (5-15); BUN 62 mg/dL (7-18); BUN/Creat Ratio 33.3 RATIO (10-20); Calcium,Total 9.5 mg/dL (8.5-10.1); Chloride 112 mmol/L (98-107); Creatinine, Serum 1.86 mg/dL (0.70-1.30); EST Glomerular Filtration Rate 38 mL/min (>60); Est Glom Filt Rate - Afr Amer 46 mL/min (>60); Glucose 78 mg/dL (74-106); PSA,Total - Annual Screen 1.29 ng/mL (0.00-4.00); Potassium 4.4 mmol/L (3.5-5.1); Sodium Level 142 mmol/L (136-145)
== END ==
LOC: OLS.SW1020 04:00
PROVIDERS: PCP Internal Medicine; Referring Provider Internal Medicine; Visit Provider Internal Medicine
DX: E11.9 Type 2 diabetes mellitus without complications (principal); I10 Essential (primary) hypertension; N43.3 Hydrocele, unspecified; Z12.5 Encounter for screening for malignant neoplasm of prostate
CPT/HCPCS: 36415; 80048; 81001; 84153; 85025; 87086; 87088; G0103

== ENCOUNTER 2021-09-06 20:35 | Emergency (ER) | payer MEDICARE, MEDICAID, SELFPAY ==
[2021-09-06 20:35] VITALS: BP 155/88; PULSE 72; RESP 18; TEMP 36.6; O2SAT 97; BMI 20.7
--- NOTE | 2021-09-06 20:55 | CT_ITS ---
INDICATION: altered mental status EXAMINATION: CT BRAIN - CT Head or Brain W/O Contrast Injection TECHNIQUE: Multiple axial images were obtained of the head without intravenous contrast. A radiation dose optimization technique was used for this scan. IV Contrast dosage and agent: None. COMPARISON: None. FINDINGS: BRAIN PARENCHYMA: No intra- or extra-axial hemorrhage. No intracranial mass or mass effect. Benjamin/white matter differentiation is maintained and there is no blurring of the basal ganglia. There is no hyperdense vessel. Dense intimal calcifications of the bilateral, intracranial vertebral arteries. Increased periventricular white matter hypodensity most likely representing chronic small vessel ischemic changes. Remote right basal ganglia infarct. Posterior fossa structures are unremarkable. CSF SPACES: Appropriate for age. No hydrocephalus. Basal cisterns are patent. CALVARIUM, SKULL BASE, PARANASAL SINUSES AND MASTOID AIR CELLS: Clear. No discrete lytic or blastic abnormalities. Some of the inferior peripheral mastoid air cells are opacified on the right. ORBITS: Both globes, extraocular muscles, optic nerves and retrobulbar fat appear unremarkable. ASPECTS Score for Acute Strokes: 10 CT/Brain/Head without Contrast IMPRESSION: No acute intracranial pathology. Remote right basal ganglia infarct and chronic small vessel ischemic changes Small amount of fluid in right mastoid air cells of questionable clinical significance.. Electronically Signed: Ezequiel Juan DO at 23:13 EST Tel , Service support ,
--- NOTE | 2021-09-06 20:55 | EKG12_ITS ---
Test Reason : [facility] [place] Blood Pressure : / mmHG Vent. Rate : 068 BPM Atrial Rate : 068 BPM P-R Int : 164 ms QRS Dur : 084 ms QT Int : 410 ms P-R-T Axes : 019 038 072 degrees QTc Int : 435 ms Normal sinus rhythm Normal ECG Confirmed by JACI GALINDO MD ([id number]), tape editor KATHLEEN PÉREZ ([id number]) on 09/09/2021 9:54:17 AM Referred By: Confirmed By:JACI GALINDO MD
--- NOTE | 2021-09-06 21:08 | EX.ED.VIS.PS ---
HPI HPI - Psych History of Present Illness Chief Complaint: Mental Health Informant: patient, EMS and SNF Narrative Narrative: 75-year-old male with a prior history of stroke currently at [facility]. Currently the patient has been getting angry and hitting at staff and having anger outburst going into other residents rooms and demonstrating increased paranoid behavior decreased appetite and spitting out his medication. They try to get the patient accepted to [facility]. Yesterday reportedly his blood work showed a BUN of 62 and a creatinine 1.86. Therefore they did not feel the patient was acceptably medically cleared and wanted him seen in the emergency department. I asked the patient how he is doing and he states that he is fine. I asked him if he like something to drink and he says no when asked him if he like something to eat and he says no I asked him why he does not want nothing to eat or drink and he states he just does not want to. I state to him that the long term told me that he has not really eaten for a couple days he tells me to shut the hell up he knows that people are playing tricks on him and leave him the hell alone. [facility] Medical History Cellulitis of right lower limb COVID-19 Essential hypertension Hyperlipemia Muscle weakness (generalized) Need for assistance with personal care Paranoid personality disorder Type 2 diabetes mellitus without complication Home Medications acetaminophen 650 mg PO Q4H PRN 03/11/21 [History Last Taken Unknown] amlodipine 10 mg PO DAILY 03/11/21 [History Last Taken Unknown] cholecalciferol (vitamin D3) 50 mcg PO DAILY 03/11/21 [History Last Taken Unknown] famotidine [Pepcid] 20 mg PO QHS 03/11/21 [History Last Taken Unknown] ferrous sulfate 325 mg PO BID 03/11/21 [History Last Taken Unknown] hydrochlorothiazide 12.5 mg PO DAILY 03/11/21 [History Last Taken Unknown] lisinopril 40 mg PO DAILY 03/11/21 [History Last Taken Unknown] metoprolol succinate 100 mg PO QHS 03/11/21 [History Last Taken Unknown] potassium chloride 10 meq PO DAILY 03/11/21 [History Last Taken Unknown] tramadol 50 mg PO BID PRN 03/11/21 [History Last Taken Unknown] vitamin [id number] acid 1 tab PO DAILY 03/11/21 [History Last Taken Unknown] aspirin 81 mg PO DAILY #30 tab 03/14/21 [Rx Last Taken Unknown] atorvastatin 40 mg PO DAILY #30 tab 03/14/21 [Rx Last Taken Unknown] metformin 500 mg PO DAILY 09/06/21 [History Last Taken Unknown] quetiapine [Seroquel] 50 mg PO BID 09/06/21 [History Last Taken Unknown] spironolactone [Aldactone] 25 mg PO DAILY 09/06/21 [History Last Taken Unknown] Allergy/AdvReac Type Severity Reaction Status Date / Time amoxicillin Allergy Unknown Verified 03/11/21 16:49 erythromycin base Allergy NEEDS Verified 03/11/21 19:01 FOLLOW-UP propoxyphene [From Darvon] Allergy Unknown Verified 03/11/21 16:49 sulfamethoxazole Allergy NEEDS Verified 03/11/21 19:01 [From Bactrim] FOLLOW-UP trimethoprim [From Bactrim] Allergy NEEDS Verified 03/11/21 19:01 FOLLOW-UP Surgical History History of appendectomy Social History Smoking Status: Never smoker ROS ROS ED Review of Systems ROS Unobtainable: due to mental status EXAM Physical Exam Const Vital Signs: 09/06/21 20:35 09/06/21 22:56 Temperature 97.8 F Temperature Source Oral Pulse Rate 72 70 Respiratory Rate 18 15 Blood Pressure 155/88 H 139/81 H Blood Pressure Mean 110 100 Pulse Ox 97 Oxygen Delivery Method Room Air Positive well nourished and well developed General Appearance ED: well developed HEENT Reports normocephalic, head/scalp atraumatic, TM's clear and moist mucous membranes normocephalic and atraumatic Tympanic Membrane ED: Yes TM's clear Eyes PERRL and EOMs intact bilaterally Neck no lymphadenopathy, supple and no JVD Resp normal respiratory effort and clear to auscultation bilaterally Cardio regular rate, regular rhythm and no murmurs Rate: regular rate Rhythm: regular rhythm GI normal to inspection, nondistended, normoactive bowel sounds and non-tender Auscultation: normoactive bowel sounds Palpation: soft Back/Spine no CVA tenderness and normal ROM Extremity normal to inspection General Extremety ED: Negative for edema General Extremity: Negative for edema Neuro CN's II-XII intact bilaterally Neuro Narrative: Will not answer orientation questions Sensorium / Orientation: alert Motor Exam: strength 5/5 throughout Psych Psych Narrative: Patient easily becomes hostile. He becomes quite agitated and aggressive towards staff Mood & Affect: Negative for depressed or tearful Skin no rashes or lesions noted and no wounds MDM MDM MDM Narrative Medical decision making narrative: Basic blood work shows normal CBC, BUN of 60 with a creatinine 1.89. This would represent a prerenal azotemia most likely due to him not eating or drinking over the past couple days but what I find interesting is that he only has small ketones in his urine with a specific gravity of 1.02. His tox work-up was negative. He will receive 2 L IV fluids. My interpretation of his chest x-ray is no acute process. CT the brain is negative for acute. Covid is negative. Patient did start to become aggressive and required some sedation with Geodon. I believe he would most be appropriate served at a psychiatric facility where they can get him medically stabilized so that he will eat and take his medications. I do not believe that he is acutely uremic. Therefore I believe that he is medically cleared for psychiatric evaluation Lab Data Attestation: I reviewed the patient's lab results. Labs: Laboratory Results - last 24 hr 09/06/21 09/06/21 09/06/21 21:10 21:10 21:10 WBC 10.3 RBC 5.26 Hgb 16.7 H Hct 49.7 MCV 94.5 H MCH 31.7 MCHC 33.6 RDW Std Deviation 44.7 H RDW Coeff of Josep 12.9 Plt Count 202 MPV 10.8 Immature Gran % (Auto) 0.300 Neut % (Auto) 77.2 H Lymph % (Auto) 14.1 L Gove % (Auto) 6.0 Eos % (Auto) 2.0 Baso % (Auto) 0.4 Absolute Neuts (auto) 7.9 H Absolute Lymphs (auto) 1.45 Nucleated RBC % 0 Sodium 144 Potassium 4.6 Chloride 112 H Carbon Dioxide 23.0 Anion Gap 9 BUN 60 H Creatinine 1.89 H Estim Creat Clear Calc 32.38 Est GFR (MDRD) Af Amer 45 L Est GFR (MDRD) Non-Af 37 L BUN/Creatinine Ratio 31.7 H Glucose 159 H Calcium 9.4 Total Bilirubin 0.60 AST 19 ALT 18 Alkaline Phosphatase 135 H Total Protein 7.1 Albumin 3.3 Globulin 3.8 Albumin/Globulin Ratio 0.9 Urine Color Urine Clarity Urine pH Ur Specific [place] Urine Protein Urine Glucose (UA) Urine Ketones Urine Occult Blood Urine Nitrite Urine Bilirubin Urine Urobilinogen Ur Leukocyte Esterase Urine RBC Urine WBC Ur Squamous Epith Cells Urine Bacteria Urine Mucus Urine Opiates Screen Urine Methadone Screen Ur Barbiturates Screen Ur Phencyclidine Scrn Ur Amphetamines Screen U Methamphetamin-MDMA U Benzodiazepines Scrn Urine Cocaine Screen U Cannabinoids Screen Ur Drug Screen Comment Ethyl Alcohol < 3.0 09/06/21 09/06/21 22:15 22:15 WBC RBC Hgb Hct MCV MCH MCHC RDW Std Deviation RDW Coeff of Josep Plt Count MPV Immature Gran % (Auto) Neut % (Auto) Lymph % (Auto) Gove % (Auto) Eos % (Auto) Baso % (Auto) Absolute Neuts (auto) Absolute Lymphs (auto) Nucleated RBC % Sodium Potassium Chloride Carbon Dioxide Anion Gap BUN Creatinine Estim Creat Clear Calc Est GFR (MDRD) Af Amer Est GFR (MDRD) Non-Af BUN/Creatinine Ratio Glucose Calcium Total Bilirubin AST ALT Alkaline Phosphatase Total Protein Albumin Globulin Albumin/Globulin Ratio Urine Color Yellow Urine Clarity Clear Urine pH 5.0 Ur Specific [place] 1.020 Urine Protein 15 H Urine Glucose (UA) Normal Urine Ketones 5 H Urine Occult Blood Negative Urine Nitrite Negative Urine Bilirubin Negative Urine Urobilinogen Normal Ur Leukocyte Esterase Negative Urine RBC 0 SEEN Urine WBC 0-5 SEEN Ur Squamous Epith Cells 0-5 SEEN Urine Bacteria 0 SEEN Urine Mucus 0 SEEN Urine Opiates Screen NEGATIVE Urine Methadone Screen NEGATIVE Ur Barbiturates Screen NEGATIVE Ur Phencyclidine Scrn NEGATIVE Ur Amphetamines Screen NEGATIVE U Methamphetamin-MDMA NEGATIVE U Benzodiazepines Scrn NEGATIVE Urine Cocaine Screen NEGATIVE U Cannabinoids Screen NEGATIVE Ur Drug Screen Comment Ethyl Alcohol Radiography Diagnostic Testing: Clinical Impression(s) from Imaging Studies Brain CT 09/06/21 20:55 IMPRESSION: No acute intracranial pathology. Remote right basal ganglia infarct and chronic small vessel ischemic changes Small amount of fluid in right mastoid air cells of questionable clinical significance.. Electronically Signed: Ezequiel Juan DO at 23:13 EST Tel , Service support , Chest X-Ray 09/06/21 21:42 IMPRESSION: 1. No radiographic evidence of acute cardiopulmonary disease. Electronically Signed: Ezequiel Juan at 21:55 EST Tel , Service support , EKG Initial EKG: Attestation: I personally reviewed and interpreted this EKG as follows: Comments: EKG demonstrates a sinus rhythm with a ventricular rate of 68 bpm Discharge Plan Triage Chief Complaint: Mental Health ED Provider: Abraham Williamson Dx/Rx/DC Orders Clinical Impression: Dementia with behavioral disturbance, Acute prerenal azotemia Prescriptions: No Action potassium chloride 20 mEq Packet 10 meq PO DAILY RF: 0 famotidine [Pepcid] 20 mg Tablet 20 mg PO QHS RF: 0 amlodipine 10 mg Tablet 10 mg PO DAILY RF: 0 ferrous sulfate 325 mg (65 mg iron) Tablet 325 mg PO BID RF: 0 lisinopril 40 mg Tablet 40 mg PO DAILY RF: 0 hydrochlorothiazide 12.5 mg Tablet 12.5 mg PO DAILY RF: 0 cholecalciferol (vitamin D3) 50 mcg (2,000 unit) Capsule 50 mcg PO DAILY RF: 0 vitamin M79-ffnjy acid 500-400 mcg Tablet 1 tab PO DAILY RF: 0 metoprolol succinate 100 mg Capsule,Sprinkle,Er 24hr 100 mg PO QHS RF: 0 tramadol 50 mg Tablet 50 mg PO BID PRN (Reason: Pain) RF: 0 acetaminophen 325 mg Tablet 650 mg PO Q4H PRN (Reason: Pain) RF: 0 aspirin 81 mg tablet,delayed release (DR/EC) 81 mg PO DAILY Qty: 30 RF: 0 atorvastatin 40 mg tablet 40 mg PO DAILY Qty: 30 RF: 0 metformin 500 mg Tablet 500 mg PO DAILY RF: 0 spironolactone [Aldactone] 25 mg Tablet 25 mg PO DAILY RF: 0 quetiapine [Seroquel] 50 mg Tablet 50 mg PO BID RF: 0 Primary Care Provider: Gudla,Alvina Referrals: Alvina Granados MD [Primary Care Provider] - Disposition Disposition: Psychiatric Hospital or Unit Discharge Location: [facility]
[2021-09-06] MEDS: 0.9% Normal Saline 1,000 ML 999 ML IV ×2 (21:10→22:23)
[2021-09-06 21:14] LABS: Absolute Lymphocyte Count 1.45 X10^3/uL (0.83-4.51); Absolute Neutrophil Count 7.9 X10^3/uL (2.0-7.7); Basophil# 0.04 X10^3/uL; Basophil% 0.4 % (0-1); Eosinophil# 0.21 X10^3/uL; Hematocrit 49.7 % (40-54); Hemoglobin 16.7 g/dL (13.0-16.5); Lymphocyte # 1.45 X10^3/ul (0.83-4.51); Lymphocyte % 14.1 % (19-41); Mean Corp Hgb Conc 33.6 g/dL (32-36); Mean Corpuscular Hgb 31.7 pg (27.0-32.0); Mean Corpuscular Volume 94.5 fL (80-94); Mean Platelet Vol. 10.8 fl (6.2-12.0); Monocyte# 0.62 X10^3/uL; NRBC Flagged by Analyzer 0 % (0-5); Neutrophil # 7.92 X10^3/uL (2.7-7.7); Neutrophil % 77.2 % (47-70); Platelet Count 202 K/mm3 (150-450); RBC Distribution Width CV 12.9 % (11.6-14.6); RBC Distribution Width SD 44.7 fl (35.1-43.9); Red Blood Count 5.26 M/mm3 (4.6-6.2); White Blood Count 10.3 K/mm3 (4.4-11.0)
--- NOTE | 2021-09-06 21:23 | CM.ED ---
NAZARIO Note Referral Source: director mortgage Bette director mortgage said that patient has been referred to [facility] and is coming to the ED for medical clearance but had lab work completed yesterday. NAZARIO called Farhana at [facility]. She reports that the labwork from yesterday was not within normal limits and so patient needs a complete workup including an EKG and labwork. She stated that the BUN and Creatinine levels were high on yesterdays lab work. She said that the provider has NOT accepted patient yet. NAZARIO updated MD and Deneen FRAIRE updated director mortgage. Plan: Inpatient psych Cece SHEPARD
--- NOTE | 2021-09-06 21:27 | CM.ED ---
NAZARIO Note: NAZARIO and YEE Brothers met with patient. SW started asking patient questions and patient said why should I talk to you and referenced this senior grant writer but agreed to speak to RN JACKIE. RN JACKIE asked if patient was eating and he said that he is eating in his room and they take it away before I eat it all. Patient stated that the fdc was worthless. Patient said that he was upset at the fdc but not all the people.. some of the people and they took everything. Patient said that he is at [facility] and said that it was October 07. Patient said that he was not refusing medication. Patient said that he is at the ED as they don't care what I do. Patient reports that there are certain people there that don't care. Patient said that he can't sleep but could sleep if the nurses kept quiet. When asked about the president patient said I don't care who the president is?. Patient said to this senior grant writer did you get everything? Plan: Patient is a poor historian. SNF reports concern that patient is not eating or taking his medication. SNF has concerns about patient's psychiatric condition and decompensating and needs inpatient psych hospitalization for stabilization. Gordon SHEPARD
[2021-09-06 21:42] LABS: ALB/GLOB Ratio 0.9 RATIO (0.9-2.4); AST(SGOT) 19 U/L (15-37); Alanine Aminotransfer ALT/SGPT 18 U/L (16-61); Albumin, Serum 3.3 g/dL (3.2-5.0); Alkaline Phosphatase 135 U/L (45-117); Anion Gap 9 (5-15); BUN 60 mg/dL (7-18); BUN/Creat Ratio 31.7 RATIO (10-20); Calcium,Total 9.4 mg/dL (8.5-10.1); Chloride 112 mmol/L (98-107); Creatinine, Serum 1.89 mg/dL (0.70-1.30); EST Glomerular Filtration Rate 37 mL/min (>60); Est Glom Filt Rate - Afr Amer 45 mL/min (>60); Estimated Creatinine Clearance 32.38 ml/min; Globulin 3.8 g/dL (2.2-4.2); Glucose 159 mg/dL (74-106); Potassium 4.6 mmol/L (3.5-5.1); Protein, Total 7.1 g/dL (6.4-8.2); Sodium Level 144 mmol/L (136-145)
--- NOTE | 2021-09-06 21:42 | RAD_ITS ---
INDICATION: ams EXAMINATION/TECHNIQUE: X-RAY - XR Chest 1 View COMPARISON: Chest x-ray 01/17/2020 FINDINGS: LINES/DEVICES: None. LUNGS: Symmetric normal lung volumes. No airspace opacity or abnormal interstitial pattern. No nodule or mass. No pleural effusion or pneumothorax. MEDIASTINUM AND CARDIOVASCULAR STRUCTURES: Normal size and contour of the cardiomediastinal silhouette. No evidence of pulmonary vascular congestion. BONES AND SOFT TISSUES: Age expected degenerative endplate changes thoracic spine. RAD/Chest 1 View (Portable) IMPRESSION: 1. No radiographic evidence of acute cardiopulmonary disease. Electronically Signed: Ezequiel Juan DO at 21:55 EST Tel , Service support ,
[2021-09-06 21:59] LABS: Alcohol, Blood (Medical)-Serum < 3.0 mg/dL
[2021-09-06 22:18] LABS: Bacteria 0 SEEN /hpf (None Seen); Mucous, Urine 0 SEEN /hpf (<or=2+); Red Blood Cells-Urine 0 SEEN /hpf (0-5)
[2021-09-06] MEDS: Ziprasidone IM 20 MG/ML VIAL 10 MG IM (22:23)
[2021-09-06 22:31] LABS: Color, Urine Yellow (Yellow); Glucose, Dipstick Normal (Normal); Ketone-Dipstick 5 mg/dl (Negative); Leukocyte Esterase-Dipstick Negative /ul (Negative); Nitrite-Dipstick Negative (Negative); Occult Blood-Urine Negative /ul (Negative); Protein-Dipstick 15 mg/dl (Negative); Urine Bilirubin Dipstick Negative (Negative); Urine Clarity Clear (Clear); Urine Urobilinogen Normal (Normal)
[2021-09-06 22:41] LABS: Amphetamine Urine VISTA NEGATIVE (<1000 ng/mL); Barbiturate Urine VISTA NEGATIVE (< 200 ng/mL); Benzodiazepine Urine VISTA NEGATIVE (< 200 ng/mL); Cocaine Urine VISTA NEGATIVE (< 300 ng/mL); Ecstacy Urine VISTA NEGATIVE (< 500 ng/mL); Methadone Urine VISTA NEGATIVE (< 300 ng/mL); PCP Urine VISTA NEGATIVE (< 25 ng/mL); THC Urine VISTA NEGATIVE (< 50 ng/mL); Vista UDS pH Range 5
[2021-09-06 22:47] LABS: Squamous Epithelial Cells - UA 0-5 SEEN /hpf (0-5); White Blood Cells 0-5 SEEN /hpf (0-5)
[2021-09-06 22:56] VITALS: BP 139/81; PULSE 70; RESP 15
--- NOTE | 2021-09-07 00:34 | ED.RN ---
[facility] CALLED AND SAID THAT THEY WAS SENDING PATIENTS INFORMATION OVER TO [facility], SINCE PATIENT WAS ALREADY REFERRED TO [facility]
[2021-09-07 00:35] VITALS: BP 184/94; PULSE 74; RESP 16; TEMP 36.3; O2SAT 98
[2021-09-07 03:04] VITALS: RESP 17
--- NOTE | 2021-09-07 03:47 | ED.RN ---
[facility] CALLED AND DECLINED THE PATIENT, THEY WILL BE CALLING THE HALF-WAY ABOUT THE PATIENT.
--- NOTE | 2021-09-07 06:46 | ED.RN ---
ROB CHAMPION FROM [facility] PT REFERRED TO [facility]
[2021-09-07 06:47] VITALS: RESP 16
[2021-09-07 08:14] VITALS: RESP 16
--- NOTE | 2021-09-07 11:50 | CM.ED ---
SOCIAL WORK Call to [facility] to check on status of referral. Per intake, awaiting a call back from [facility] regarding HPOA/guardian to sign for patient. Intake states has not heard back from [facility] at this time. Call to [facility], left message for admissions updating on needs for patient and request they contact [facility]. Awaiting call back at this time. Plan: Pending at [facility] Alen Sanchez, OUTSIDE PLANT ENGINEER, ASSORTER LAUNDRY
--- NOTE | 2021-09-07 13:19 | CM.ED ---
SOCIAL WORK Spoke with Caroline from [facility], per Caroline no HPOA or guardian for patient. Call to [facility], per intake if no HPOA or guardian unable to accommodate patient. Call to [facility] to update on the above, no answer, left message. Alen Sanchez, ASSISTANT CROSS COUNTRY COACH, MAINFRAME PROGRAMMER ANALYST
--- NOTE | 2021-09-07 13:52 | CM.ED ---
SOCIAL WORK Received call back from Jenny with [facility]. Referral has been faxed to [facility] and [facility]. Pending acceptance at this time. Alen Sanchez, MILL TENDER SECOND OPERATOR, STARCH AND PROSIZE MIXER
--- NOTE | 2021-09-07 14:19 | CM.ED ---
Addendum entered by Malinda Sanchez 09/07/21 15:32: Declined by [facility]. Original Note: SOCIAL WORK Declined at [facility] due to acuity. Alen Sanchez, FULLER BRUSH MAN, QUALITY CONTROL OPERATOR
[2021-09-07 15:08] VITALS: PULSE 85; RESP 16; O2SAT 97
--- NOTE | 2021-09-07 15:32 | CM.ED ---
Referral faxed to [facility]. Pending acceptance at this time. Alen Sanchez, FILM PROCESSOR, CUSTOMER SOLUTIONS TEAMMATE
--- NOTE | 2021-09-07 16:32 | CM.ED ---
SOCIAL WORK Patient accepted to [facility] by Dr. Arauz. Nurse to call report to [phone]. Intake calling [facility] to check on transportation and will call this worker back. Alen Sanchez, DRY PAN OPERATOR, DIRECTOR WORK
--- NOTE | 2021-09-07 17:36 | NURSING ---
CALLED [facility], ETA IS LESS THAN 90 MIN
[2021-09-07 19:00] VITALS: BP 156/87; PULSE 63; RESP 16; O2SAT 100
[2021-09-07] MEDS: Ziprasidone IM 20 MG/ML VIAL IM (19:00)
== END 2021-09-07 19:00 ==
LOC: ED 21:39
PROVIDERS: Emergency Provider Emergency Medicine; PCP Internal Medicine; Visit Provider Emergency Medicine
DX: F03.91 Unspecified dementia, unspecified severity, with behavioral disturbance (principal); E11.9 Type 2 diabetes mellitus without complications; E78.5 Hyperlipidemia, unspecified; I10 Essential (primary) hypertension; R79.89 Other specified abnormal findings of blood chemistry; Z86.16 Personal history of COVID-19; Z79.899 Other long term (current) drug therapy; Z79.84 Long term (current) use of oral hypoglycemic drugs
CPT/HCPCS: 70450; 71045; 80053; 80307; 81001; 82077; 85025; 87426; 93005; 96360; 96361; 96372; 99285; J7030; A4216; J3486

== ENCOUNTER → 2021-10-03 | Outpatient (REF) | payer SELFPAY ==
[2021-10-04 08:33] LABS: Mucous, Urine 0 SEEN /hpf (<or=2+); Red Blood Cells-Urine 0 SEEN /hpf (0-5)
[2021-10-04 08:59] LABS: Color, Urine Yellow (Yellow); Glucose, Dipstick Normal (Normal); Leukocyte Esterase-Dipstick 100 /ul (Negative); Nitrite-Dipstick Positive (Negative); Occult Blood-Urine 25 /ul (Negative); Protein-Dipstick 100 mg/dl (Negative); Specific Gravity, Urine 1.015 (1.002-1.030); Urine Bilirubin Dipstick 1 mg/dL (Negative); Urine Clarity Sl Cldy (Clear); Urine Urobilinogen 4 mg/dl (Normal)
[2021-10-04 09:01] LABS: Ketone-Dipstick 150 mg/dl (Negative)
[2021-10-04 09:14] LABS: Squamous Epithelial Cells - UA 0-5 SEEN /hpf (0-5); White Blood Cells 5-10 SEEN /hpf (0-5)
[2021-10-04 09:15] LABS: Bacteria 3+ /hpf (None Seen)
== END | disposition home or self-care (01) ==
LOC: OLS.SW1020 20:00
PROVIDERS: PCP Internal Medicine; Visit Provider Internal Medicine
DX: N39.0 Urinary tract infection, site not specified (principal); R41.82 Altered mental status, unspecified
CPT/HCPCS: 81001; 87077; 87086; 87088; 87186

== ENCOUNTER 2021-10-05 17:47 | Inpatient (IN) | payer MEDICARE, MEDICAID, SELFPAY ==
[2021-10-05 17:49] VITALS: BP 156/91; PULSE 60; RESP 14; TEMP 36.6; O2SAT 97; BMI 20.4
--- NOTE | 2021-10-05 18:06 | EKG12_ITS ---
Test Reason : WEAKNESS Blood Pressure : / mmHG Vent. Rate : 060 BPM Atrial Rate : 060 BPM P-R Int : 146 ms QRS Dur : 092 ms QT Int : 448 ms P-R-T Axes : 025 012 142 degrees QTc Int : 448 ms Normal sinus rhythm ST & T wave abnormality, consider lateral ischemia Abnormal ECG Confirmed by JESUS MACKENZIE, LYDIA ([id number]), development editor SPIKE MCDANIEL ([id number]) on 10/06/2021 11:17:57 AM Referred By: CHERRIE Confirmed By:JULIEN LEE MD
--- NOTE | 2021-10-05 18:07 | EX.ED.DYSGE1 ---
HPI History of Present Illness Chief Complaint: General Illness Narrative Narrative: History and physical is limited secondary to patient being mildly uncooperative. He presents from [facility] with reported abnormal laboratory values/critical labs. He states that he has not been feeling well for a day. However, RN reports that he supposedly stopped eating and drinking a month ago and pulled out his IV. He does come with laboratory work that shows he has a potassium at 2.8, may be dehydrated. He also may have a urinary tract infection. He states he is not in any pain anywhere. RN also reports that he was sent in for failure to thrive. He has past medical history of paranoid schizophrenia, and muscle weakness. He also has history of dementia. [facility] Medical History Cellulitis of right lower limb COVID-19 Essential hypertension Hyperlipemia Muscle weakness (generalized) Need for assistance with personal care Paranoid personality disorder Type 2 diabetes mellitus without complication Home Medications amlodipine 10 mg PO DAILY 03/11/21 [History Last Taken Unknown] famotidine [Pepcid] 20 mg PO QHS 03/11/21 [History Last Taken Unknown] ferrous sulfate 325 mg PO BID 03/11/21 [History Last Taken Unknown] metoprolol succinate 100 mg PO QHS 03/11/21 [History Last Taken Unknown] potassium chloride 25 meq PO DAILY 03/11/21 [History Last Taken Unknown] vitamin [id number]-xyryu acid 1 tab PO DAILY 03/11/21 [History Last Taken Unknown] aspirin 81 mg PO DAILY #30 tab 03/14/21 [Rx Last Taken Unknown] quetiapine [Seroquel] 50 mg PO BID 09/06/21 [History Last Taken Unknown] aripiprazole 5 mg PO/SL DAILY 10/05/21 [History Last Taken Unknown] clonidine HCl 0.1 mg PO TID 10/05/21 [History Last Taken Unknown] donepezil 5 mg PO/SL BID 10/05/21 [History Last Taken Unknown] folic acid 1 mg PO/SL DAILY 10/05/21 [History Last Taken Unknown] guaifenesin 10 mg PO/SL PRN PRN 10/05/21 [History Last Taken Unknown] Allergy/AdvReac Type Severity Reaction Status Date / Time amoxicillin Allergy Unknown Verified 03/11/21 16:49 erythromycin base Allergy NEEDS Verified 03/11/21 19:01 FOLLOW-UP propoxyphene [From Darvon] Allergy Unknown Verified 03/11/21 16:49 sulfamethoxazole Allergy NEEDS Verified 03/11/21 19:01 [From Bactrim] FOLLOW-UP trimethoprim [From Bactrim] Allergy NEEDS Verified 03/11/21 19:01 FOLLOW-UP Surgical History History of appendectomy Social History Smoking Status: Never smoker ROS ROS ED ROS Narrative Unable to obtain review of systems from patient. This is secondary to dementia. Review of Systems ROS Unobtainable: due to mental condition; Denies due to encephalopathy, due to endotracheal tube, due to mental status or other EXAM Physical Exam Narrative Exam Narrative: Afebrile. Vital signs noted. Mildly lethargic. HEENT: Normocephalic. Atraumatic. PERRL, EOMI. Neck soft and supple. No point tenderness or step off. Dry mucous membranes. Cardiovascular: Regular rate and rhythm with intermittent tachycardia. No murmurs, rubs, or gallops appreciated. Respiratory: No tachypnea. Lungs clear to auscultation bilaterally. Gastrointestinal: Abdomen soft, nontender, with normoactive bowel sounds. No rebound or guarding. Neurological: Intermittently awake. Alert. Moves all extremities. Skin: No rash. Normal color. No pallor. Musculoskeletal: No pedal edema. Full range of motion extremities to a small extent. Const Vital Signs: 10/05/21 17:49 10/05/21 17:51 10/05/21 19:52 Temperature 97.8 F Temperature Source Temporal Pulse Rate 60 63 Respiratory Rate 14 18 Respiratory Pattern Normal Blood Pressure 156/91 H 148/97 H Blood Pressure Mean 112 114 Pulse Ox 97 97 Oxygen Delivery Method Room Air Room Air 10/05/21 21:35 Temperature Temperature Source Pulse Rate 68 Respiratory Rate 13 Respiratory Pattern Blood Pressure 173/87 H Blood Pressure Mean 115 Pulse Ox 98 Oxygen Delivery Method Room Air MDM MDM MDM Narrative Medical decision making narrative: Comprehensive work-up was pursued. EKG demonstrates normal sinus rhythm at 60 bpm. Patient has a slightly elevated white count of 13 which I think is nonspecific, hemoglobin stable at 15.4, hematocrit 45.5. Normal platelet count of 240. Sodium is elevated at 155, with chloride 121. Potassium slightly low at 3.2. He has an elevated creatinine of 1.62 with a BUN of 42 consistent with dehydration. Lactic acid normal at 1.3. Alk phos is elevated at 155 which I think is nonspecific. While his urine is positive for nitrites, there are 0-5 WBCs. I do not feel antibiotics are indicated emergently. Chest x-ray in 1 view shows no acute process. Given his hypokalemia and dehydration, will be given IV fluids. I will discuss patient with hospitalist for admission. Patient is in stable condition. Lab Data Attestation: I reviewed the patient's lab results. Labs: Laboratory Results - last 24 hr 10/05/21 10/05/21 10/05/21 19:05 19:05 19:05 WBC 13.0 H RBC 4.84 Hgb 15.4 Hct 45.5 MCV 94.0 MCH 31.8 MCHC 33.8 RDW Std Deviation 46.3 H RDW Coeff of Josep 13.7 Plt Count 240 MPV 9.9 Sodium 155 H Potassium 3.2 L Chloride 121 H Carbon Dioxide 28.0 Anion Gap 6 BUN 42 H Creatinine 1.62 H Estim Creat Clear Calc 37.05 Est GFR (MDRD) Af Amer 54 L Est GFR (MDRD) Non-Af 45 L BUN/Creatinine Ratio 25.9 H Glucose 98 Lactic Acid 1.3 Calcium 8.7 Total Bilirubin 0.80 AST 30 ALT 19 Alkaline Phosphatase 155 H Total Protein 7.1 Albumin 2.7 L Globulin 4.4 H Albumin/Globulin Ratio 0.6 L Urine Color Urine Clarity Urine pH Ur Specific [place] Urine Protein Urine Glucose (UA) Urine Ketones Urine Occult Blood Urine Nitrite Urine Bilirubin Urine Urobilinogen Ur Leukocyte Esterase Urine RBC Urine WBC Ur Squamous Epith Cells Urine Bacteria Urine Mucus 10/05/21 19:25 WBC RBC Hgb Hct MCV MCH MCHC RDW Std Deviation RDW Coeff of Josep Plt Count MPV Sodium Potassium Chloride Carbon Dioxide Anion Gap BUN Creatinine Estim Creat Clear Calc Est GFR (MDRD) Af Amer Est GFR (MDRD) Non-Af BUN/Creatinine Ratio Glucose Lactic Acid Calcium Total Bilirubin AST ALT Alkaline Phosphatase Total Protein Albumin Globulin Albumin/Globulin Ratio Urine Color Yellow Urine Clarity Sl. Cloudy Urine pH 6.0 Ur Specific [place] 1.015 Urine Protein 30 H Urine Glucose (UA) Normal Urine Ketones 50 H Urine Occult Blood 25 H Urine Nitrite Positive H Urine Bilirubin 1 H Urine Urobilinogen 4 H Ur Leukocyte Esterase 25 H Urine RBC 0 SEEN Urine WBC 0-5 SEEN Ur Squamous Epith Cells 0 SEEN Urine Bacteria 1+ Urine Mucus 0 SEEN Radiography Diagnostic Testing: Clinical Impression(s) from Imaging Studies Chest X-Ray 10/05/21 19:00 IMPRESSION: No radiographic evidence of acute cardiopulmonary disease. at 1940 Reported and signed by: Juma Martinez MD Electronically Signed: Juma Martinez MD at 19:39 EST , Discharge Plan Dx/Rx/DC Orders Clinical Impression: Hypernatremia, Dehydration, Hypokalemia, Adult failure to thrive Disposition Disposition: Acute Care Hospital [facility]
[2021-10-05] MEDS: 0.9% Normal Saline 1,000 ML 1000 ML IV (18:37)
--- NOTE | 2021-10-05 19:00 | RAD_ITS ---
HISTORY: Fatigue and Malaise EXAMINATION/TECHNIQUE: XR Chest 1 View: Portable upright AP chest x-ray COMPARISON: September 06, 2021 FINDINGS: LINES/DEVICES: None. LUNGS: No consolidation, edema or effusion. No pneumothorax. MEDIASTINUM AND CARDIOVASCULAR STRUCTURES: Cardiac silhouette not enlarged. Central airways and mediastinal contour are unremarkable. BONES AND SOFT TISSUES: No acute bony abnormalities. RAD/Chest 1 View (Portable) IMPRESSION: No radiographic evidence of acute cardiopulmonary disease. at 1940 Reported and signed by: Juma Martinez MD Electronically Signed: Juma Martinez MD at 19:39 EST ,
[2021-10-05 19:32] LABS: Hematocrit 45.5 % (40-54); Hemoglobin 15.4 g/dL (13.0-16.5); Mean Corp Hgb Conc 33.8 g/dL (32-36); Mean Corpuscular Hgb 31.8 pg (27.0-32.0); Mean Platelet Vol. 9.9 fl (6.2-12.0); Platelet Count 240 K/mm3 (150-450); RBC Distribution Width CV 13.7 % (11.6-14.6); RBC Distribution Width SD 46.3 fl (35.1-43.9); Red Blood Count 4.84 M/mm3 (4.6-6.2)
[2021-10-05 19:34] LABS: Mucous, Urine 0 SEEN /hpf (<or=2+); Red Blood Cells-Urine 0 SEEN /hpf (0-5); Squamous Epithelial Cells - UA 0 SEEN /hpf (0-5)
[2021-10-05 19:41] LABS: Color, Urine Yellow (Yellow); Glucose, Dipstick Normal (Normal); Ketone-Dipstick 50 mg/dl (Negative); Leukocyte Esterase-Dipstick 25 /ul (Negative); Nitrite-Dipstick Positive (Negative); Occult Blood-Urine 25 /ul (Negative); Protein-Dipstick 30 mg/dl (Negative); Specific Gravity, Urine 1.015 (1.002-1.030); Urine Clarity Sl. Cloudy (Clear); Urine Urobilinogen 4 mg/dl (Normal)
[2021-10-05 19:46] LABS: Urine Bilirubin Dipstick 1 mg/dL (Negative)
[2021-10-05 19:52] VITALS: BP 148/97; PULSE 63; RESP 18; O2SAT 97
[2021-10-05 19:56] LABS: Bacteria 1+ /hpf (None Seen); White Blood Cells 0-5 SEEN /hpf (0-5)
[2021-10-05 19:57] LABS: ALB/GLOB Ratio 0.6 RATIO (0.9-2.4); AST(SGOT) 30 U/L (15-37); Alanine Aminotransfer ALT/SGPT 19 U/L (16-61); Albumin, Serum 2.7 g/dL (3.2-5.0); Alkaline Phosphatase 155 U/L (45-117); Anion Gap 6 (5-15); BUN 42 mg/dL (7-18); BUN/Creat Ratio 25.9 RATIO (10-20); Calcium,Total 8.7 mg/dL (8.5-10.1); Chloride 121 mmol/L (98-107); Creatinine, Serum 1.62 mg/dL (0.70-1.30); EST Glomerular Filtration Rate 45 mL/min (>60); Est Glom Filt Rate - Afr Amer 54 mL/min (>60); Estimated Creatinine Clearance 37.05 ml/min; Globulin 4.4 g/dL (2.2-4.2); Glucose 98 mg/dL (74-106); Lactic Acid 1.3 mmol/L (0.4-1.9); Potassium 3.2 mmol/L (3.5-5.1); Protein, Total 7.1 g/dL (6.4-8.2); Sodium Level 155 mmol/L (136-145)
[2021-10-05 21:35] VITALS: BP 173/87; PULSE 68; RESP 13; O2SAT 98
[2021-10-05 21:55] VITALS: BP 173/87; PULSE 64; RESP 18; TEMP 37.1; O2SAT 98
--- NOTE | 2021-10-05 21:56 | HP.PCM.HOS_ITS ---
HPI - General General Date of Admission: 10/05/21 HPI Narrative CARY JEFFRIES, is a 75 M with a significant history of paranoid schizophrenia; and type 2 diabetes mellitus and who lives at a senior care presenting because of critical labs on the same day of presentation. Outpatient labs showed a potassium of 2.9. Reportedly patient stopped eating about a month ago. Per the senior care papers patient is being brought in because of failure to thrive among others Also reportedly patient pulled his IV at the senior care. History is difficult to obtain as patient has monotonic speech and is not enthusiastic about providing information. Patient denies shortness of breath, coughing, dysuria,. He acknowledges anorexia. PENDING SALE TO [facility] Medical History Anxiety Cellulitis of right lower limb COVID-19 Dementia Essential hypertension Hyperlipemia Muscle weakness (generalized) Need for assistance with personal care Paranoid personality disorder Type 2 diabetes mellitus without complication Home Medications amlodipine 10 mg PO QHS 03/11/21 [History Last Taken Unknown] famotidine [Pepcid] 20 mg PO DAILY 03/11/21 [History Last Taken Unknown] aspirin 81 mg PO DAILY #30 tab 03/14/21 [Rx Last Taken Unknown] quetiapine [Seroquel] 50 mg PO QHS 09/06/21 [History Last Taken Unknown] aluminum-magnesium hydroxide 30 ml PO Q4H PRN 10/05/21 [History Last Taken Unknown] aripiprazole 5 mg PO/SL DAILY 10/05/21 [History Last Taken Unknown] atorvastatin 1 mg PO QHS 10/05/21 [History Last Taken Unknown] bisacodyl 10 mg VT DAILY 10/05/21 [History Last Taken Unknown] bupropion HCl [Wellbutrin XL] 150 mg PO QHS 10/05/21 [History Last Taken Unknown] cascara sagrada-mag hydroxide [Milk of Magnesia-Mocapayara] 30 ml PO PRN 10/05/21 [History Last Taken Unknown] clonidine HCl 0.1 mg PO TID 10/05/21 [History Last Taken Unknown] cyanocobalamin (vitamin B-12) 500 mcg PO DAILY 10/05/21 [History Last Taken Unknown] donepezil 5 mg PO/SL BID 10/05/21 [History Last Taken Unknown] folic acid 1 mg PO/SL DAILY 10/05/21 [History Last Taken Unknown] guaifenesin 10 mg PO/SL Q4H PRN 10/05/21 [History Last Taken Unknown] memantine 10 mg PO QHS 10/05/21 [History Last Taken Unknown] metoprolol tartrate 50 mg PO BID 10/05/21 [History Last Taken Unknown] mirtazapine 30 mg PO QHS 10/05/21 [History Last Taken Unknown] potassium bicarbonate 1 ea PO BID 10/05/21 [History Last Taken Unknown] Allergy/AdvReac Type Severity Reaction Status Date / Time amoxicillin Allergy Unknown Verified 03/11/21 16:49 erythromycin base Allergy NEEDS Verified 03/11/21 19:01 FOLLOW-UP propoxyphene [From Darvon] Allergy Unknown Verified 03/11/21 16:49 sulfamethoxazole Allergy NEEDS Verified 03/11/21 19:01 [From Bactrim] FOLLOW-UP trimethoprim [From Bactrim] Allergy NEEDS Verified 03/11/21 19:01 FOLLOW-UP Family History unable to obtain unable to obtain (due to Mental status.) Surgical History History of appendectomy Social History Smoking Status: Never smoker ROS ROS Narrative Pertinent positives and pertinent negatives as noted in HPI. All other systems were reviewed and are negative. Vital Signs Vital Signs Vital Signs: 10/05/21 17:49 10/05/21 17:51 10/05/21 19:52 Temperature 97.8 F Temperature Source Temporal Pulse Rate 60 63 Respiratory Rate 14 18 Respiratory Pattern Normal Blood Pressure 156/91 H 148/97 H Blood Pressure Mean 112 114 Pulse Ox 97 97 Oxygen Delivery Method Room Air Room Air 10/05/21 21:35 10/05/21 21:55 Temperature 98.7 F Temperature Source Temporal Pulse Rate 68 64 Respiratory Rate 13 18 Respiratory Pattern Blood Pressure 173/87 H 173/87 H Blood Pressure Mean 115 115 Pulse Ox 98 98 Oxygen Delivery Method Room Air Room Air Weight Weight: 64.5 kg Body Mass Index (BMI) 20.4 Physical Exam Narrative Physical exam: General: Well-nourished, well-developed. Head: Normocephalic, atraumatic, no tenderness Eyes: PERRLA, EOMI ENT, no trauma, moist mucous membranes, no rhinorrhea Neck: Nontender, full range of motion, no spinal tenderness, deformities, step- off CVS: Regular rate and rhythm. S1-S2 present. No murmur, gallop or rub. Respiratory : clear to auscultation bilaterally, chest wall nontender, no wheezing Abdomen: Soft, nontender, nondistended, normal bowel sounds, no masses : Deferred Back: Nontender, no CVA tenderness, no midline spinal tenderness, deformities, step-offs Extremities: Cachectic. Nontender full range of motion, no trauma Skin: Normal color, no trauma, abrasions Neuro: Alert, oriented, cranial nerves II through XII grossly intact. Psychiatry: Monotonic speech with psychomotor retardation. Appears depressed. Results Lab / Micro Data Result Diagrams: 10/05/21 19:05 10/05/21 19:05 Labs: Laboratory Results - last 24 hr 10/05/21 19:05: WBC 13.0 H, RBC 4.84, Hgb 15.4, Hct 45.5, MCV 94.0, MCH 31.8, MCHC 33.8, RDW Std Deviation 46.3 H, RDW Coeff of Josep 13.7, Plt Count 240, MPV 9.9 10/05/21 19:05: Sodium 155 H, Potassium 3.2 L, Chloride 121 H, Carbon Dioxide 28.0, Anion Gap 6, BUN 42 H, Creatinine 1.62 H, Estim Creat Clear Calc 37.05, Est GFR (MDRD) Af Amer 54 L, Est GFR (MDRD) Non-Af 45 L, BUN/Creatinine Ratio 25.9 H, Glucose 98, Calcium 8.7, Total Bilirubin 0.80, AST 30, ALT 19, Alkaline Phosphatase 155 H, Total Protein 7.1, Albumin 2.7 L, Globulin 4.4 H, Albumin/Globulin Ratio 0.6 L 10/05/21 19:05: Lactic Acid 1.3 10/05/21 19:25: Urine Color Yellow, Urine Clarity Sl. Cloudy, Urine pH 6.0, Ur Specific [place] 1.015, Urine Protein 30 H, Urine Glucose (UA) Normal, Urine Ketones 50 H, Urine Occult Blood 25 H, Urine Nitrite Positive H, Urine Bilirubin 1 H, Urine Urobilinogen 4 H, Ur Leukocyte Esterase 25 H, Urine RBC 0 SEEN, Urine WBC 0-5 SEEN, Ur Squamous Epith Cells 0 SEEN, Urine Bacteria 1+, Urine Mucus 0 SEEN Radiology Impression Chest X-Ray 10/05/21 19:00 IMPRESSION: No radiographic evidence of acute cardiopulmonary disease. at 1940 Reported and signed by: Juma Martinez MD Electronically Signed: Juma Martinez MD at 19:39 EST , Assessment & Plan Assessment/Plan (1) Hypernatremia: (2) Dehydration: (3) Adult failure to thrive: (4) Hypokalemia: PLAN: Adult failure to thrive/dehydration/severe protein calorie malnutrition Review of labs showed sodium of 155; BUN of 42. We will replete with isotonic solution of normal saline. When patient is euvolemic if still with hyponatremia consider hypotonic solution. Patient failed bedside speech eval by nurse. Speech therapy eval for swallowing ordered. On patient passes consider dietitian consult. Hypokalemia Received supplemental potassium at the emergency department. Currently n.p.o. so can not receive home potassium supplementation. Trend BMP and if potassium is high supplement. Severe protein calorie malnutrition Patient with cachexia recently stopped eating. BMI of 18.8. At this time patient is n.p.o. because he failed swallow eval. Speech to evaluate. After speech evaluation consider nutrition consult and supplemental nutrition. Leukocytosis Review of ED labs showed white count of 13. Chest x-ray was independently visualized and interpreted no acute cardiopulmonary process and agree with the large interpretation. Like secondary to dehydration. Trend CBC Abnormal urinalysis Normal pyuria. 1+ bacteria. Urine culture ordered emergency department; follow. Charges/Coding Visit Charges Inpatient E&M: 73656 Init Hosp L3
--- NOTE | 2021-10-05 22:03 | ED.RN ---
[facility] updated that patient will be [facility]. His WBC is elevated. Potassium low and will be given potassium through IV. Urine does have bacteria. Nurse states she has no further questions at this time.
[2021-10-05] MEDS: KCL 40mEq in 0.9% NS 40 MEQ/1,000 ML IV.SOLN 250 MEQ IV (22:25)
[2021-10-05 22:49] VITALS: BMI 18.8
[2021-10-05 23:00] VITALS: BP 167/79; PULSE 76; RESP 16; TEMP 36.7; O2SAT 100
[2021-10-06] VITALS (10 sets, daily range): BP systolic 154–169; BP diastolic 70–88; PULSE 69–94; RESP 16–18; TEMP 36.7–37.2; O2SAT 94–100
[2021-10-06] MEDS: hydrALAZINE 20 MG/ML Vial 5 MG IV (01:11)
[2021-10-06] MEDS: 0.9% Normal Saline 1,000 ML 100 ML IV (02:44)
[2021-10-06 06:43] LABS: Absolute Lymphocyte Count 1.29 X10^3/uL (0.83-4.51); Absolute Neutrophil Count 13.1 X10^3/uL (2.0-7.7); Basophil# 0.07 X10^3/uL; Basophil% 0.4 % (0-1); Eosinophil# 0.06 X10^3/uL; Eosinophils% 0.4 % (0-5); Hematocrit 44.4 % (40-54); Lymphocyte # 1.29 X10^3/ul (0.83-4.51); Lymphocyte % 8.1 % (19-41); Mean Corp Hgb Conc 33.8 g/dL (32-36); Mean Corpuscular Hgb 31.8 pg (27.0-32.0); Mean Corpuscular Volume 94.1 fL (80-94); Monocyte# 0.91 X10^3/uL; Monocyte% 5.7 % (0-10); NRBC Flagged by Analyzer 0 % (0-5); Neutrophil # 13.05 X10^3/uL (2.7-7.7); Neutrophil % 82.5 % (47-70); Platelet Count 239 K/mm3 (150-450); RBC Distribution Width CV 13.7 % (11.6-14.6); RBC Distribution Width SD 46.3 fl (35.1-43.9); Red Blood Count 4.72 M/mm3 (4.6-6.2); White Blood Count 15.8 K/mm3 (4.4-11.0)
[2021-10-06 07:07] LABS: Anion Gap 9 (5-15); BUN 37 mg/dL (7-18); BUN/Creat Ratio 31.4 RATIO (10-20); Calcium,Total 8.3 mg/dL (8.5-10.1); Chloride 124 mmol/L (98-107); Creatinine, Serum 1.18 mg/dL (0.70-1.30); EST Glomerular Filtration Rate 64 mL/min (>60); Est Glom Filt Rate - Afr Amer 78 mL/min (>60); Glucose 78 mg/dL (74-106); Potassium 3.2 mmol/L (3.5-5.1); Sodium Level 156 mmol/L (136-145)
[2021-10-06] MEDS: Dext 5%-0.45% NS 1,000 ML 125 ML IV ×2 (09:19→16:51)
[2021-10-06] MEDS: ARIPiprazole 5 MG Tablet PO ×2 (09:21→09:22)
[2021-10-06] MEDS: Metoprolol(XL)Succ 100 MG Tablet PO ×2 (09:21→20:03)
[2021-10-06] MEDS: Donepezil HCl 5 MG Tablet PO ×2 (09:22→20:03)
[2021-10-06] MEDS: QUEtiapine 25 MG Tablet 50 MG PO ×2 (09:22→20:02)
[2021-10-06] MEDS: amLODIPine 10 MG Tablet PO (09:23)
[2021-10-06] MEDS: Enoxaparin 40 MG/0.4 ML Syringe SC (09:23)
--- NOTE | 2021-10-06 10:51 | CASEMGMT ---
Social Work Note SW reviewed chart. Pt is lsited as being from [facility]. NAZARIO placed a call to Iris at [facility] and left message regarding pt's admission. NAZARIO waiting for call back from [facility]. NAZARIO faxed updated clinicals to [facility]. NAZARIO spoke with RN. Pt is alert and orientated x1, getting speech evaluation completed at this time. NAZARIO informed RN that this worker called [facility] to inquire about POA/family etc. NAZARIO waiting for call back from [facility]. SW to continue to follow. Jenny Riley INFANTRY SENIOR SERGEANT, TIN RECOVERY WORKER
--- NOTE | 2021-10-06 11:23 | NURSING ---
mouth care given x 2 this am, twice w/ mouth swabs and once with moistened washcloth-vaseline to lips
--- NOTE | 2021-10-06 12:10 | PN.HOSP_ITS ---
Documented by User: Demond GONZALEZ 10/06/21 12:26 Subjective Subjective Patient is a 75-year-old male lying in bed, alert and oriented to self. Patient unable to provide much insight into his current condition as he does not engage in much dialogue on my examination. Does not appear to be in acute distress. Objective Data Objective Data Vital Signs: Vital Signs Temp Pulse Resp BP Pulse Ox 98.0 F 88 18 155/78 H 94 10/06/21 09:00 10/06/21 09:21 10/06/21 09:36 10/06/21 09:00 10/06/21 09:36 Oxygen Delivery Method Room Air Weight: 131 lb 6.328 oz Body Mass Index (BMI) 18.8 Intake & Output: Intake and Output for Last 24 Hours 10/04/21 10/05/21 10/06/21 23:59 23:59 23:59 Intake Total 1000 / 1000 1506 / 1506 Balance 1000 / 1000 1506 / 1506 Lab / Micro Data Result Diagrams: 10/06/21 05:35 10/06/21 05:35 Labs: Laboratory Results - last 24 hr 10/05/21 19:05: WBC 13.0 H, RBC 4.84, Hgb 15.4, Hct 45.5, MCV 94.0, MCH 31.8, MCHC 33.8, RDW Std Deviation 46.3 H, RDW Coeff of Josep 13.7, Plt Count 240, MPV 9.9 10/05/21 19:05: Sodium 155 H, Potassium 3.2 L, Chloride 121 H, Carbon Dioxide 28.0, Anion Gap 6, BUN 42 H, Creatinine 1.62 H, Estim Creat Clear Calc 37.05, Est GFR (MDRD) Af Amer 54 L, Est GFR (MDRD) Non-Af 45 L, BUN/Creatinine Ratio 25.9 H, Glucose 98, Calcium 8.7, Total Bilirubin 0.80, AST 30, ALT 19, Alkaline Phosphatase 155 H, Total Protein 7.1, Albumin 2.7 L, Globulin 4.4 H, Albumin/Globulin Ratio 0.6 L 10/05/21 19:05: Lactic Acid 1.3 10/05/21 19:25: Urine Color Yellow, Urine Clarity Sl. Cloudy, Urine pH 6.0, Ur Specific [place] 1.015, Urine Protein 30 H, Urine Glucose (UA) Normal, Urine Ketones 50 H, Urine Occult Blood 25 H, Urine Nitrite Positive H, Urine Bilirubin 1 H, Urine Urobilinogen 4 H, Ur Leukocyte Esterase 25 H, Urine RBC 0 SEEN, Urine WBC 0-5 SEEN, Ur Squamous Epith Cells 0 SEEN, Urine Bacteria 1+, Urine Mucus 0 SEEN 10/06/21 05:35: WBC 15.8 H, RBC 4.72, Hgb 15.0, Hct 44.4, MCV 94.1 H, MCH 31.8, MCHC 33.8, RDW Std Deviation 46.3 H, RDW Coeff of Josep 13.7, Plt Count 239, MPV 10.0, Immature Gran % (Auto) 2.900 H, Neut % (Auto) 82.5 H, Lymph % (Auto) 8.1 L , [place] % (Auto) 5.7, Eos % (Auto) 0.4, Baso % (Auto) 0.4, Absolute Neuts (auto) 13.1 H, Absolute Lymphs (auto) 1.29, Nucleated RBC % 0 10/06/21 05:35: Sodium 156 H, Potassium 3.2 L, Chloride 124 H, Carbon Dioxide 23.0, Anion Gap 9, BUN 37 H, Creatinine 1.18, Estim Creat Clear Calc 47.00, Est GFR (MDRD) Af Amer 78, Est GFR (MDRD) Non-Af 64, BUN/Creatinine Ratio 31.4 H, Glucose 78, Calcium 8.3 L Radiography Diagnostic Testing: Radiology Impression Chest X-Ray 10/05/21 19:00 IMPRESSION: No radiographic evidence of acute cardiopulmonary disease. at 1940 Reported and signed by: Juma Martinez MD Electronically Signed: Juma Martinez MD at 19:39 EST , Physical Exam Const alert, oriented x3 and no apparent distress HEENT head/scalp atraumatic and moist oral mucous membranes Head and Scalp: normocephalic Eyes PERRL, EOMs intact bilaterally and conjunctivae normal Neck no lymphadenopathy, supple and no JVD Resp normal respiratory effort, no retractions, no use of accessory muscles and clear to auscultation bilaterally Cardio regular rate, regular rhythm, no murmurs and no JVD GI normal to inspection, nondistended, normoactive bowel sounds, soft to palpation and non-tender Extremity normal to inspection, full ROM and no clubbing, cyanosis or edema Skin no rashes or lesions noted, no wounds and skin turgor normal Neuro CN's II-XII intact bilaterally Psych affect normal Assessment & Plan Assessment/Plan (1) Hypernatremia: (2) Dehydration: (3) Hypokalemia: (4) Adult failure to thrive: PLAN: Day 1 Discharge planning: Patient is to return to [facility] when medically ready. 1) adult failure to thrive/dehydration/hyponatremia Patient has not been taking in appropriate oral nutrition at correction, failed speech therapy eval on admission. Transition from normal saline to D5, awaiting speech therapy eval. 2) hypokalemia Potassium currently 3.2, replaced, continue to monitor BMP. 3) severe protein calorie malnutrition BMI is 18. Nutrition consult and speech therapy eval ordered. 4) leukocytosis WBC is currently 15.8, likely secondary to dehydration. Chest x-ray is unremarkable. Urine culture pending. 5) abnormal UA Urine culture ordered/pending. Previous urine culture grew staph epidermidis. DVT prophylaxis - Lovenox Patient seen by Demond Mayer PA-C, under the supervision of Dr. Ling. Ti me spent on patient care: 10 minutes. Documented by User: Dr. Flaquito Ling, 10/06/21 16:40 Objective Data Lab / Micro Data Result Diagrams: 10/06/21 05:35 10/06/21 05:35 Charges/Coding Addendum Addendum: Patient was seen and examined with Demond Mayer, patient appears somnolent, he does respond to tactile stimulation but not verbal stimulation. On examination he appeared older than his stated age. Vital signs as documented. Skin warm and dry and without overt rashes. Neck without JVD, neck was supple, trachea midline, thyroid was normal. Lungs clear bilaterally, normal air movement was noted. Heart exam notable for regular rhythm, normal sounds and absence of murmurs, rubs or gallops. Abdomen unremarkable and without evidence of organomegaly, masses, or abdominal aortic enlargement. Bowel sounds are present, abdomen is not distended. Extremities nonedematous, no cyanosis was noted, no clubbing was noted. Neuro: Cranial nerves II through XII are grossly intact, patient was somnolent. Psych: Patient does not appear agitated or depressed, he is somnolent Impression #1 hypernatremia-probably secondary to dehydration, IV fluids will be administered, I change his IV fluids to D5 half-normal saline, labs will be monitored #2 encephalopathy-secondary to multiple medical problems including paranoid personality disorder, metabolic derangement, cerebrovascular disease, dementia- supportive care, continue IV fluids, patient will need a guardian appointed-I talked with the correction today by phone and they stated that the patient does not have a guardian or a relative to make decisions for him. Patient was recently in a psychiatric facility in September of this year. According to the correction, patient has been staying there for approximately 2 years #3 severe protein and caloric malnutrition-patient is n.p.o. at this time except for his medication, if he is not able to have significant oral intake, he will most likely need a PEG tube. Speech therapy recommendations will be followed. #4 bacteriuria-patient's urine cultures growing out staph epidermidis which I think is probably contaminant, I will observe him for any signs or symptoms of urinary tract infection, patient is not currently on an IV antibiotic #5 essential hypertension-patient's blood pressure will be monitored, he is able to take his medications crushed per speech. I have reviewed Demond Mayer's progress note including his medical assessment and plan of care and with the above additions endorse it. Total clinical time by myself regarding this patient including addressing the patient's medical issues, reviewing his data, and collaborating with the patient's care team: 25 minutes Visit Charges Inpatient E&M: 53290 [facility] L3
[2021-10-06] MEDS: cloNIDine HCl 0.1 MG Tablet PO ×2 (13:47→20:02)
--- NOTE | 2021-10-06 13:53 | NURSING ---
mouth care given-sips of cold water given on spoon
--- NOTE | 2021-10-06 14:30 | CASEMGMT ---
Social Work Note SW hasn't heard anything back from [facility] regarding pt. NAZARIO placed another call to Iris at [facility] and left message regarding pt. Jenny Riley AGRICULTURAL TECHNICIAN, PIPE BLANKS CUT OFF SAW OPERATOR
--- NOTE | 2021-10-06 15:06 | CASEMGMT ---
Social Work Note SW discussed case with Lisa GREENFIELD. There is a Volunteer Guardianship program through [facility] and if they have Volunteer's available, pt could get a Volunteer Guardian through the program. The program is available for those individuals in nursing homes which pt is currently a resident of [facility]. The number for the Volunteer Guardianship Program is [phone]. If the Volunteer Guardianship program has volunteers currently available, [facility] may be able to initial the referral for Guardian for pt. NAZARIO placed a call to the number listed above ([phone]). NAZARIO spoke with someone who states she used to be in charge of the program but is no longer. NAZARIO was encouraged to call [employer] in [place], [place] and ask to speak with Spa Experience Coordinatorxiang Logan. NAZARIO placed a call to [employer] [facility] [employer] and spoke with Betsy. NAZARIO asked to speak with Attorney Logan. Betsy states they are working from home and this worker was encouraged to email Spa Experience Coordinatorxiang Logan ([email or web address]) regarding information on the Volunteer Guardianship program. NAZARIO emailed Spa Experience Coordinatorxiang Logan to inquire about the Volunteer Guardianship Program. NAZARIO received email back from Spa Experience Coordinatorxiang Ramos stating this wroker needs to contact Isidra Maurice ([email or web address]). NAZARIO emailed Isidra regarding Program and if there are any Volunteer's available at this time. NAZARIO to continue to follow. Jenny Riley FOREX TRADER, LAST CODE STRIPER
[2021-10-06] MEDS: Famotidine 20 MG Tablet PO (20:03)
[2021-10-07] MEDS: Dext 5%-0.45% NS 1,000 ML 125 ML IV ×3 (00:29→17:33)
[2021-10-07 02:00] VITALS: BP 154/77; PULSE 64; RESP 16; TEMP 36.8; O2SAT 96
[2021-10-07] MEDS: cloNIDine HCl 0.1 MG Tablet PO ×2 (05:57→15:30)
[2021-10-07 08:11] LABS: Absolute Lymphocyte Count 1.04 X10^3/uL (0.83-4.51); Absolute Neutrophil Count 9.9 X10^3/uL (2.0-7.7); Basophil# 0.02 X10^3/uL; Basophil% 0.2 % (0-1); Eosinophil# 0.16 X10^3/uL; Eosinophils% 1.3 % (0-5); Hematocrit 34.9 % (40-54); Hemoglobin 12.3 g/dL (13.0-16.5); Lymphocyte # 1.04 X10^3/ul (0.83-4.51); Lymphocyte % 8.7 % (19-41); Mean Corp Hgb Conc 35.2 g/dL (32-36); Mean Corpuscular Hgb 32.6 pg (27.0-32.0); Mean Corpuscular Volume 92.6 fL (80-94); Mean Platelet Vol. 9.7 fl (6.2-12.0); Monocyte# 0.72 X10^3/uL; NRBC Flagged by Analyzer 0 % (0-5); Neutrophil # 9.86 X10^3/uL (2.7-7.7); Neutrophil % 82.5 % (47-70); Platelet Count 181 K/mm3 (150-450); RBC Distribution Width CV 13.5 % (11.6-14.6); RBC Distribution Width SD 45.6 fl (35.1-43.9); Red Blood Count 3.77 M/mm3 (4.6-6.2)
[2021-10-07 08:35] LABS: ALB/GLOB Ratio 0.6 RATIO (0.9-2.4); AST(SGOT) 25 U/L (15-37); Alanine Aminotransfer ALT/SGPT 17 U/L (16-61); Albumin, Serum 2.2 g/dL (3.2-5.0); Alkaline Phosphatase 122 U/L (45-117); Anion Gap 5 (5-15); BUN 20 mg/dL (7-18); BUN/Creat Ratio 17.9 RATIO (10-20); Calcium,Total 7.8 mg/dL (8.5-10.1); Chloride 123 mmol/L (98-107); Creatinine, Serum 1.12 mg/dL (0.70-1.30); EST Glomerular Filtration Rate 68 mL/min (>60); Est Glom Filt Rate - Afr Amer 83 mL/min (>60); Estimated Creatinine Clearance 49.52 ml/min; Globulin 3.5 g/dL (2.2-4.2); Glucose 196 mg/dL (74-106); Potassium 2.3 mmol/L (3.5-5.1); Protein, Total 5.7 g/dL (6.4-8.2); Sodium Level 152 mmol/L (136-145)
[2021-10-07 08:38] VITALS: BP 143/106; PULSE 57; RESP 18; TEMP 36.4; O2SAT 96
[2021-10-07] MEDS: Potassium Chloride 10mEq/100mL 10 MEQ/100 ML IV.SOLN. 100 MEQ IV BOLUS ×4 (09:05→14:02)
[2021-10-07] MEDS: Enoxaparin 40 MG/0.4 ML Syringe SC (11:32)
--- NOTE | 2021-10-07 13:14 | PCM.PN.HOSP ---
Documented by User: Demond GONZALEZ 10/07/21 13:32 Subjective Subjective Patient is a 75-year-old male lying in bed, alert and orient to self. Patient cannot provide much insight into his current condition as his verbal communication capacity is limited due to mental illness, does not appear in acute distress. Objective Data Objective Data Vital Signs: Vital Signs Temp Pulse Resp BP Pulse Ox 97.6 F L 57 L 18 143/106 H 96 10/07/21 08:38 10/07/21 08:38 10/07/21 08:38 10/07/21 08:38 10/07/21 08:38 Oxygen Delivery Method Room Air Weight: 131 lb 6.328 oz Body Mass Index (BMI) 18.8 Intake & Output: Intake and Output for Last 24 Hours 10/05/21 10/06/21 10/07/21 23:59 23:59 23:59 Intake Total 1000 / 1000 3224.34 / 3224.34 2154.17 / 2154.17 Balance 1000 / 1000 3224.34 / 3224.34 2154.17 / 2154.17 Medical Nutrition Assessment Dietitian: Malnutrition Criteria Met Start: 10/06/21 13:55 Freq: Status: Active Protocol: Document 10/06/21 13:55 AG (Rec: 10/06/21 13:55 [id number]) Nutrition Malnutrition Evidence of Malnutrition Exists Yes Malnutrition (severe): Acute Illness/Injury Evidenced By Suboptimal Energy Intake ( Severe),Weight Loss (Severe) Clinical Problem Acute Disease or Injury Related Malnutrition Etiology severe acute malnutrition r/t inadequate oral intake Signs/Symptoms as evidenced by reported no PO intake x 1 month, unintentional wt loss of 6.6#/ 5% x 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 Will fortify foods and provide nutritional supplements when PO diet is advanced. Significant risk for refeeding syndrome- recommend close monitoring of electrolytes when PO diet is advanced. If unable to resume PO nutrition, may need to consider enteral nutrition support- consult RDN for further recommendations as needed. Lab / Micro Data Result Diagrams: 10/07/21 07:28 10/07/21 07:50 Labs: Laboratory Results - last 24 hr 10/07/21 07:28: WBC 12.0 H, RBC 3.77 L, Hgb 12.3 L, Hct 34.9 L, MCV 92.6, MCH 32.6 H, MCHC 35.2, RDW Std Deviation 45.6 H, RDW Coeff of Josep 13.5, Plt Count 181, MPV 9.7, Immature Gran % (Auto) 1.300 H, Neut % (Auto) 82.5 H, Lymph % (Auto) 8.7 L, [place] % (Auto) 6.0, Eos % (Auto) 1.3, Baso % (Auto) 0.2, Absolute Neuts (auto) 9.9 H, Absolute Lymphs (auto) 1.04, Nucleated RBC % 0 10/07/21 07:50: Sodium 152 H, Potassium 2.3 L*, Chloride 123 H, Carbon Dioxide 24.0, Anion Gap 5, BUN 20 H, Creatinine 1.12, Estim Creat Clear Calc 49.52, Est GFR (MDRD) Af Amer 83, Est GFR (MDRD) Non-Af 68, BUN/Creatinine Ratio 17.9, Glucose 196 H, Calcium 7.8 L, Total Bilirubin 0.70, AST 25, ALT 17, Alkaline Phosphatase 122 H, Total Protein 5.7 L, Albumin 2.2 L, Globulin 3.5, Albumin/Globulin Ratio 0.6 L Micro: Microbiology 10/05/21 19:25 Urine, Catheterized Urine Culture - Final Staphylococcus epidermidis Physical Exam Const alert, oriented x3 and no apparent distress HEENT head/scalp atraumatic and moist oral mucous membranes Head and Scalp: normocephalic Eyes PERRL, EOMs intact bilaterally and conjunctivae normal Neck no lymphadenopathy, supple and no JVD Resp normal respiratory effort, no retractions and no use of accessory muscles Cardio regular rate, regular rhythm, no murmurs and no JVD GI normal to inspection, nondistended, normoactive bowel sounds, soft to palpation and non-tender Extremity normal to inspection, full ROM and no clubbing, cyanosis or edema Skin no rashes or lesions noted, no wounds and skin turgor normal Neuro Neuro Narrative: Unable to assess due to baseline mentation Psych Psych Narrative: Unable to assess due to baseline mentation Assessment & Plan Assessment/Plan (1) Hypernatremia: (2) Dehydration: (3) Hypokalemia: (4) Adult failure to thrive: PLAN: Day 2 Discharge planning: Patient is to return to [facility] when medically ready. 1) adult failure to thrive/dehydration/hypernatremia Patient has not been taking in appropriate oral nutrition at alf, failed speech therapy eval on admission. Transition from normal saline to D5, ST ordered. 2) hypokalemia Potassium currently 2.3, replaced, continue to monitor BMP. 3) severe protein calorie malnutrition BMI is 18. Nutrition consult and speech therapy eval ordered. 4) leukocytosis WBC is currently 12.0, likely secondary to dehydration. Chest x-ray and urine culture are unremarkable. 5) abnormal UA Abnormal UA noted on admission, urine culture under infection level. 6) hypocalcemia Replacement calcium ordered, continue to monitor BMP. DVT prophylaxis - Lovenox Patient seen by Demond Mayer PA-C, under the supervision of Dr. Ling. Time spent on patient care: 7 minutes. Documented by User: Dr. Flaquito Ling DO 10/07/21 17:19 Objective Data Lab / Micro Data Result Diagrams: 10/07/21 07:28 10/07/21 07:50 Charges/Coding Addendum Addendum: Patient was seen and examined today independently of Demond Mayer, he appears more alert today but is still agitated at times. On examination he appeared older than his stated age, he was confused and lethargic. Vital signs as documented. Skin warm and dry and without overt rashes. Neck without JVD, neck was supple, trachea midline, thyroid was normal. Lungs clear bilaterally, normal air movement was noted. Heart exam notable for regular rhythm, normal sounds and absence of murmurs, rubs or gallops. Abdomen unremarkable and without evidence of organomegaly, masses, or abdominal aortic enlargement. Bowel sounds are present, abdomen is not distended. Extremities nonedematous, no cyanosis was noted, no clubbing was noted. Neuro: Cranial nerves II through XII are grossly intact, no focal motor deficits were noted, sensation to light touch and pinprick intact Psych: Patient is confused and lethargic. #1 hypernatremia-probably secondary to dehydration, IV fluids will continue to be administered, labs will be monitored #2 encephalopathy-secondary to multiple medical problems including paranoid personality disorder, metabolic derangement, cerebrovascular disease, dementia-supportive care, continue IV fluids, patient will need a guardian appointed, I talked with case management about this point #3 severe protein and caloric malnutrition-patient is n.p.o. at this time except for his medication, if he is not able to have significant oral intake, he will most likely need a PEG tube. Speech therapy recommendations will be followed. #4 bacteriuria-patient's urine cultures growing out staph epidermidis which I think is probably contaminant, I do not feel the patient has a urinary tract infection #5 essential hypertension-patient's blood pressure will be monitored, he is able to take his medications crushed per speech. I have reviewed Demond Mayer's progress note including his medical assessment and plan of care and with the above additions endorse it. Total clinical time spent addressing the patient's medical issues, reviewing all of his medical data, and collaboration with the patient's care team: 20 minutes Visit Charges Inpatient E&M: 23747 Subs Hosp L2
--- NOTE | 2021-10-07 13:44 | CHAPLAIN ---
Type of Pastoral Visit _x__ Initial Visit ___ Follow-up Visit ___ On-call Visit ___ General Patient Visit ___ Spiritual Assessment ___ Family Conference ___ Bereavement ___ Rapid Response ___ Code Blue ___ Other (describe below) Pastoral Care Referral From _x__ Patient ___ Family ___ Nurse ___ Physician ___ Furniture Mover ___ Educational Paraprofessional _x__ Other (describe below) Sacrament/Intervention ___ Active listening ___ Anointing ___ Sikhism ___ Bereavement ___ Communion ___ Brianne exploration ___ ___ Life review _x__ Prayer ___ Reconciliation ___ Sacrament of Sick _x__ Supportive presence ___ Wedding ___ Other (describe below) Pastoral Comments patient was sleeping but awoke easily when his name was called; introducted self and role to pt; pt does not engage in conversation but does give one word answers for questions; pt also shrugs his shoulders; pt says he is feeling a little better but does not open eyes or say much more; pt says if you want' when asked about prayer
[2021-10-07] MEDS: NYSTATIN 500,000 UNIT/5 ML UDC 500000 UNIT PO ×2 (15:13→17:33)
[2021-10-07 15:26] VITALS: BP 144/74; PULSE 57; RESP 16; TEMP 36.7; O2SAT 97
--- NOTE | 2021-10-07 17:21 | CASEMGMT ---
Social Work MS3 Handoff report from MARIANELA Pozo. Contacted Volunteer Guardianship economic development coordinator, Isidra Maurice. There is one available guardian and Isidra is checking to see if this guardian is a possibility. Asked Isidra to let this travel writer know when knows for sure if a possibility. Contact [facility] and left message for Lucianoko to have the facility social welfare clerk call this travel writer as need to discuss some psychosocial matters. Left this travel writer's name and number for social welfare clerk to call back. From chart review, noted in September 2021 when patient presented for psychiatric crisis it was confirmed at that time that patient had neither a guardian or a health care power of attorney at law. There is no family listed, and just a friend was noted in 2019 by the name of Corey Lauren. Met with patient to attempt to explore orientation. Upon social welfare clerk entering the room the patient appeared to be having some visual hallucinations as evidenced by asking this travel writer why a mechanics walkway was in the room and moving back and forth. Patient was looking at a grated in ceiling. When asked about current place patient stated I don't give a fuck, and when patient was asked about year response was I don't give a damn. Let patient know that staff is worried about patient and lack of nutritional intake. Patient's response was I don't like cooking. Attempted to explore whether patient would want surgery, just to see if this would elicit a strong response, and patient had no response. Patient clearly responded that has never had children and has no siblings. Reports had a mom and dad, but has not seen in a long time and does not know his parents status. Message sent to administration Madeleine and Terry regarding patient's care needs, lack of family support, concerns about capacity issues, and need to determine a course of action for this patient. No response back form guardianship program by the end of this working day. No response back by [facility] social welfare clerk. Plan: Hospital social welfare clerk will continue to follow and assist, exploring decision making options for this patient. -DEVYN Gamez, POLICY WRITER TYPIST
[2021-10-07 20:38] VITALS: BP 151/79; PULSE 58; RESP 18; TEMP 36.8; O2SAT 97
[2021-10-07 21:01] VITALS: PULSE 58
--- NOTE | 2021-10-08 00:17 | NURSING ---
This RN heard patient having trouble clearing secretions and having a very moist cough. THis RN went into patients room, sat HOB up to 75 degrees and encouraged patient to cough hard. Patient produced a large amount of thick yellow sputum. Oral suction via yanker provided and more secretions were able to be suctioned from patients mouth. Will notify . Remains NPO.
[2021-10-08] MEDS: Dext 5%-0.45% NS 1,000 ML 125 ML IV (01:21)
[2021-10-08 04:29] VITALS: BP 140/70; PULSE 54; RESP 18; TEMP 37.2; O2SAT 98
[2021-10-08 04:31] LABS: Bedside Glucose 157 mg/dL (70-110)
[2021-10-08 05:19] LABS: Anion Gap 5 (5-15); BUN 12 mg/dL (7-18); BUN/Creat Ratio 11.9 RATIO (10-20); Calcium,Total 7.5 mg/dL (8.5-10.1); Chloride 117 mmol/L (98-107); Creatinine, Serum 1.01 mg/dL (0.70-1.30); EST Glomerular Filtration Rate 77 mL/min (>60); Est Glom Filt Rate - Afr Amer 93 mL/min (>60); Estimated Creatinine Clearance 54.91 ml/min; Glucose 156 mg/dL (74-106); Potassium 2.2 mmol/L (3.5-5.1); Sodium Level 146 mmol/L (136-145)
[2021-10-08] MEDS: Potassium Chloride 10mEq/100mL 10 MEQ/100 ML IV.SOLN. 100 MEQ IV BOLUS ×4 (05:45→09:19)
[2021-10-08 09:52] VITALS: BP 147/81; PULSE 63; RESP 14; TEMP 36.9; O2SAT 98
[2021-10-08] MEDS: Enoxaparin 40 MG/0.4 ML Syringe SC (09:57)
--- NOTE | 2021-10-08 10:45 | PN.HOSP_ITS ---
Documented by User: Demond GONZALEZ 10/08/21 10:55 Subjective Subjective Patient is a 75-year-old male lying in bed, alert and orient to self. Patient cannot provide much insight into his current condition as his verbal communication capacity is limited due to mental illness, does not appear in acute distress. Objective Data Objective Data Vital Signs: Vital Signs Temp Pulse Resp BP Pulse Ox 98.5 F 63 14 147/81 H 98 10/08/21 09:52 10/08/21 09:52 10/08/21 09:52 10/08/21 09:52 10/08/21 09:52 Oxygen Delivery Method Room Air Weight: 131 lb 6.328 oz Body Mass Index (BMI) 18.8 Intake & Output: Intake and Output for Last 24 Hours 10/06/21 10/07/21 10/08/21 23:59 23:59 23:59 Intake Total 3224.34 / 3224.34 3357.92 / 3357.92 1781.25 / 1781.25 Balance 3224.34 / 3224.34 3357.92 / 3357.92 1781.25 / 1781.25 Medical Nutrition Assessment Dietitian: Malnutrition Criteria Met Start: 10/06/21 13:55 Freq: Status: Active Protocol: Document 10/06/21 13:55 AG (Rec: 10/06/21 13:55 [id number]) Nutrition Malnutrition Evidence of Malnutrition Exists Yes Malnutrition (severe): Acute Illness/Injury Evidenced By Suboptimal Energy Intake ( Severe),Weight Loss (Severe) Clinical Problem Acute Disease or Injury Related Malnutrition Etiology severe acute malnutrition r/t inadequate oral intake Signs/Symptoms as evidenced by reported no PO intake x 1 month, unintentional wt loss of 6.6#/ 5% x 9 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 Will fortify foods and provide nutritional supplements when PO diet is advanced. Significant risk for refeeding syndrome- recommend close monitoring of electrolytes when PO diet is advanced. If unable to resume PO nutrition, may need to consider enteral nutrition support- consult RDN for further recommendations as needed. Lab / Micro Data Result Diagrams: 10/07/21 07:28 10/08/21 04:14 Labs: Laboratory Results - last 24 hr 10/08/21 04:14: Sodium 146 H, Potassium 2.2 L*, Chloride 117 H, Carbon Dioxide 24.0, Anion Gap 5, BUN 12, Creatinine 1.01, Estim Creat Clear Calc 54.91, Est GFR (MDRD) Af Amer 93, Est GFR (MDRD) Non-Af 77, BUN/Creatinine Ratio 11.9, Glucose 156 H, Calcium 7.5 L 10/08/21 04:27: POC Glucose 157 H Micro: Microbiology 10/05/21 19:25 Urine, Catheterized Urine Culture - Final Staphylococcus epidermidis Physical Exam Const alert, oriented x3 and no apparent distress HEENT head/scalp atraumatic and moist oral mucous membranes Head and Scalp: normocephalic Eyes PERRL, EOMs intact bilaterally and conjunctivae normal Neck no lymphadenopathy, supple and no JVD Resp normal respiratory effort, no retractions, no use of accessory muscles and clear to auscultation bilaterally Cardio regular rate, regular rhythm, no murmurs and no JVD GI normal to inspection, nondistended, normoactive bowel sounds, soft to palpation and non-tender Extremity normal to inspection, full ROM and no clubbing, cyanosis or edema Skin no rashes or lesions noted, no wounds and skin turgor normal Neuro Neuro Narrative: Unable to assess due to limited verbal capacity. Psych Psych Narrative: Unable to assess due to limited verbal capacity. Assessment & Plan Assessment/Plan (1) Hypernatremia: (2) Dehydration: (3) Hypokalemia: (4) Adult failure to thrive: PLAN: Day 3 Discharge planning: Patient is to return to [facility] when medically ready. Healthcare POA being established by CM/SW. 1) adult failure to thrive/dehydration/hypernatremia Patient has not been taking in appropriate oral nutrition at senior care, failed speech therapy eval on admission. Transition from normal saline to D5, ST ordered. 2) hypokalemia Potassium currently 2.2, replaced, continue to monitor BMP. 3) severe protein calorie malnutrition BMI is 18. Nutrition consult and speech therapy eval ordered. 4) leukocytosis WBC is currently 12.0, likely secondary to dehydration. Chest x-ray and urine culture are unremarkable. 5) abnormal UA Abnormal UA noted on admission, urine culture under infection level. 6) hypocalcemia Replacement calcium ordered, continue to monitor BMP. DVT prophylaxis - Lovenox Patient seen by Demond Mayer PA-C, under the supervision of Dr. Ling. Time spent on patient care: 7 minutes. Documented by User: Dr. Flaquito Ling, 10/08/21 19:02 Objective Data Lab / Micro Data Result Diagrams: 10/07/21 07:28 10/08/21 04:14 Charges/Coding Addendum Addendum: Patient was seen and examined today independently of Demond Mayer, his sodium appears improved today, his potassium however was low at 2.2, he received supplemental IV potassium. Patient is minimally responsive to painful stimuli, he does not carry on a conversation, he reacts to verbal stimulation also. On examination he appeared older than his stated age. Vital signs as documented. Skin warm and dry and without overt rashes. Neck without JVD, neck was supple, trachea midline, thyroid was normal. Lungs clear bilaterally, normal air movement was noted. Heart exam notable for regular rhythm, normal sounds and absence of murmurs, rubs or gallops. Abdomen unremarkable and without evidence of organomegaly, masses, or abdominal aortic enlargement. Bowel sounds are present, abdomen is not distended. Extremities nonedematous, no cyanosis was noted, no clubbing was noted. Neuro: Cranial nerves II through XII are grossly intact, patient was somnolent. Psych: Patient does not appear agitated or depr essed, he is somnolent, he does not verbalize to this examiner #1 hypernatremia-probably secondary to dehydration, IV fluids will continue to be administered, labs will be monitored #2 encephalopathy-secondary to multiple medical problems including paranoid personality disorder, metabolic derangement, cerebrovascular disease, dementia- supportive care, continue IV fluids, patient will need a guardian appointed, I talked with case management about this point #3 severe protein and caloric malnutrition-patient is n.p.o. at this time except for his medication, if he is not able to have significant oral intake, he will most likely need a PEG tube. Patient will have to have a guardian appointed to have a feeding tube placed. Speech therapy recommendations will be followed. #4 bacteriuria-patient's urine cultures growing out staph epidermidis which I think is probably contaminant, I do not feel the patient has a urinary tract infection #5 essential hypertension-patient's blood pressure will be monitored, he is able to take his medications crushed per speech. #6 hypokalemia-IV potassium supplementation was given today, labs will be rechecked Visit Charges Inpatient E&M: 66014 Subs Hosp L2
--- NOTE | 2021-10-08 12:04 | CASEMGMT ---
Social Work Following up with guardianship status. Dr. Ling verbally states that patient is not currently able to make decisions for self as patient is not oriented and is confused. This social worker palliative care and Dr. Ramirez collaborating, Dr. Ramirez to complete expert evaluation and place on patient chart. This social worker palliative care provided expert evaluation paperwork to Dr. Ramirez. Dr. Ramirez request for this social worker palliative care to reach out to [facility] to obtain formal mental health diagnosis as well as confirm that there are no contacts on patient chart. Telephone call to [facility], Mckenna. Mckenna reports that patient has diagnosis of Altered mental status, Dementia, Paranoid personality disorder, and Anxiety listed on patient chart. Mckenna also reports that there is no next of kin or friend listed on patient chart at [facility]. At [facility] patient is listed as own person/guardian. This social worker palliative care thanked Mckenna. This social worker palliative care updated Dr. Ramirez with information obtained from [facility]. Social work to continue to follow. Rachelle BEAR, JEAN PIERRE
[2021-10-08] MEDS: Potassium Chloride 40 MEQ in Dext 5%-0.45% NS 1,000 ML 125 MEQ IV ×2 (14:52→22:04)
[2021-10-08 14:58] VITALS: BP 168/85; PULSE 62; RESP 14; TEMP 36.7; O2SAT 96
[2021-10-08 21:30] VITALS: BP 155/93; PULSE 120; RESP 18; TEMP 36.9; O2SAT 97
[2021-10-08 21:36] VITALS: PULSE 120
[2021-10-08] MEDS: cloNIDine HCl 0.1 MG Tablet PO (21:36)
[2021-10-08] MEDS: NYSTATIN 500,000 UNIT/5 ML UDC 500000 UNIT PO (21:36)
[2021-10-08] MEDS: Metoprolol(XL)Succ 100 MG Tablet PO (21:36)
[2021-10-08 22:25] VITALS: PULSE 77
[2021-10-09 02:27] VITALS: BP 152/97; PULSE 70; RESP 16; TEMP 36.4; O2SAT 98
[2021-10-09] MEDS: Potassium Chloride 40 MEQ in Dext 5%-0.45% NS 1,000 ML 125 MEQ IV ×3 (05:24→21:34)
[2021-10-09 06:08] LABS: Anion Gap 7 (5-15); BUN 8 mg/dL (7-18); Calcium,Total 7.8 mg/dL (8.5-10.1); Chloride 110 mmol/L (98-107); Creatinine, Serum 0.99 mg/dL (0.70-1.30); EST Glomerular Filtration Rate 78 mL/min (>60); Est Glom Filt Rate - Afr Amer 95 mL/min (>60); Estimated Creatinine Clearance 56.02 ml/min; Glucose 161 mg/dL (74-106); Potassium 2.6 mmol/L (3.5-5.1); Sodium Level 141 mmol/L (136-145)
[2021-10-09 08:14] VITALS: BP 157/83; PULSE 66; RESP 20; TEMP 36.7; O2SAT 100
[2021-10-09] MEDS: Enoxaparin 40 MG/0.4 ML Syringe SC (08:22)
--- NOTE | 2021-10-09 09:57 | PN.HOSP_ITS ---
Documented by User: Demond GONZALEZ 10/09/21 10:08 Subjective Subjective Patient is a 75-year-old male lying in bed, alert and orient to self. Patient cannot provide much insight into his current condition as his verbal communication capacity is limited due to mental illness, does not appear in acute distress. Objective Data Objective Data Vital Signs: Vital Signs Temp Pulse Resp BP Pulse Ox 98.1 F 66 20 H 157/83 H 100 10/09/21 08:14 10/09/21 08:14 10/09/21 08:14 10/09/21 08:14 10/09/21 08:14 Oxygen Delivery Method Room Air Weight: 131 lb 6.328 oz Body Mass Index (BMI) 18.8 Intake & Output: Intake and Output for Last 24 Hours 10/07/21 10/08/21 10/09/21 23:59 23:59 23:59 Intake Total 3357.92 / 3357.92 2901.25 / 2901.25 916.67 / 916.67 Output Total 1200 / 1200 300 / 300 Balance 3357.92 / 3357.92 1701.25 / 1701.25 616.67 / 616.67 Medical Nutrition Assessment Dietitian: Malnutrition Criteria Met Start: 10/06/21 1 3:55 Freq: Status: Active Protocol: Document 10/08/21 11:33 ERIC (Rec: 10/08/21 11:34 [facility] [id number]) Nutrition Malnutrition Evidence of Malnutrition Exists Yes Malnutrition (severe): Acute Illness/Injury Evidenced By Suboptimal Energy Intake ( Severe),Weight Loss (Severe) Clinical Problem Acute Disease or Injury Related Malnutrition Etiology severe acute malnutrition r/t inadequate oral intake Signs/Symptoms as evidenced by reported no PO intake x 1 month, unintentional wt loss of 6.6#/ 5% x 9 days SOAKER, BMI 18.8 Status Active Problem Recommendation Dietitian Recommendations/Changes recommend regular diet- texture/consistency modifications per PRESSURE TESTER OPERATOR. Will fortify foods and provide nutritional supplements when PO diet is advanced. Significant risk for refeeding syndrome- recommend close monitoring of electrolytes when PO diet is advanced. If unable to resume PO nutrition, may need to consider enteral nutrition support- consult RDN for further recommendations as needed. Lab / Micro Data Result Diagrams: 10/07/21 07:28 10/09/21 05:20 Labs: Laboratory Results - last 24 hr 10/09/21 05:20: Sodium 141, Potassium 2.6 L*, Chloride 110 H, Carbon Dioxide 24.0, Anion Gap 7, BUN 8, Creatinine 0.99, Estim Creat Clear Calc 56.02, Est GFR (MDRD) Af Amer 95, Est GFR (MDRD) Non-Af 78, BUN/Creatinine Ratio 8.0 L, Glucose 161 H, Calcium 7.8 L Micro: Microbiology 10/08/21 00:14 Sputum, Expectorated/Coughed Gram Stain - Final 10/05/21 19:25 Urine, Catheterized Urine Culture - Final Staphylococcus epidermidis Physical Exam Const alert and no apparent distress HEENT head/scalp atraumatic and moist oral mucous membranes Head and Scalp: normocephalic Eyes PERRL, EOMs intact bilaterally and conjunctivae normal Neck no lymphadenopathy, supple and no JVD Resp normal respiratory effort, no retractions and no use of accessory muscles Cardio regular rate, regular rhythm, no murmurs and no JVD GI normal to inspection, nondistended, normoactive bowel sounds, soft to palpation and non-tender Extremity normal to inspection, full ROM and no clubbing, cyanosis or edema Skin no rashes or lesions noted, no wounds and skin turgor normal Neuro Neuro Narrative: Unable to assess due to limited verbal capacity. Psych Psych Narrative: Unable to assess due to limited verbal capacity. Assessment & Plan Assessment/Plan (1) Adult failure to thrive: (2) Hypokalemia: (3) Dehydration: (4) Hypernatremia: PLAN: Day 4 Discharge planning: Patient is to return to [facility] when medically ready. [facility] and healthcare POA being established by CM/SW. 1) adult failure to thrive/dehydration/hypernatremia Patient has not been taking in appropriate oral nutrition at [facility], failed speech therapy eval on admission. Completed D5 infusion, attempting to establish POA for patient so patient could potentially get a PEG tube placed. 2) hypokalemia Potassium 2.6, 4 bags ordered, will monitor BMP. 3) severe protein calorie malnutrition BMI is 18. Nutrition consult and speech therapy eval ordered. 4) leukocytosis WBC is currently 12.0, likely secondary to dehydration. Chest x-ray and urine culture are unremarkable. 5) abnormal UA Abnormal UA noted on admission, urine culture under infection level. 6) hypocalcemia Replacement calcium ordered, continue to monitor BMP. DVT prophylaxis - Lovenox Patient seen by Demond Mayer PA-C, under the supervision of Dr. Ling. Time spent on patient care: 7 minutes. Documented by User: Dr. Flaquito Ling, 10/09/21 11:25 Objective Data Lab / Micro Data Result Diagrams: 10/07/21 07:28 10/09/21 05:20 Charges/Coding Addendum Addendum: Patient was seen and examined independently of Demond Mayer today, he continues to appear lethargic and somnolent, he is able to speak a few words but does not carry on a conversation. According to nursing patient has been agitated at times striking out at nursing. Patient's potassium today was 2.6, his sodium has normalized, his chloride is still a little high at 110. Patient is able to take some of his medications such as Catapres, nystatin, and metoprolol. He does not appear safe at this time for oral intake of food. On examination he appeared older than his stated age. Vital signs as documented. Skin warm and dry and without overt rashes. Neck without JVD, neck was supple, trachea midline, thyroid was normal. Lungs clear bilaterally, normal air moveme nt was noted. Heart exam notable for regular rhythm, normal sounds and absence of murmurs, rubs or gallops. Abdomen unremarkable and without evidence of organomegaly, masses, or abdominal aortic enlargement. Bowel sounds are present, abdomen is not distended. Extremities nonedematous, no cyanosis was noted, no clubbing was noted. Neuro: Cranial nerves II through XII are grossly intact, patient was somnolent. Psych: Patient does not appear agitated or depressed, he is somnolent, he is able to say a word or two otherwise he cannot speak #1 hypernatremia-probably secondary to dehydration, IV fluids will continue to be administered, his sodium level today is normal #2 encephalopathy-secondary to multiple medical problems including paranoid personality disorder, metabolic derangement, cerebrovascular disease, dementia- supportive care, continue IV fluids, patient will need a guardian appointed, I talked with case management about this point, I filled out a statement of expert evaluation today on the patient, it would be my recommendation that the patient should be hospice, I do not feel that the patient should have a feeding tube inserted to prolong his life due to his dementia and mental illness. #3 severe protein and caloric malnutrition-patient is n.p.o. at this time except for his medication, if he is not able to have significant oral intake, he will most likely need a PEG tube. Patient will have to have a guardian appointed as soon as possible to state whether a PEG tube would be approved, again I think that placing a PEG tube in this patient would not be recommended due to the patient's chronic mental illness and dementia. Speech therapy recommendations will be followed. #4 bacteriuria-patient's urine cultures growing out staph epidermidis which I think is probably contaminant, I do not feel the patient has a urinary tract infection #5 essential hypertension-patient's blood pressure will be monitored, he is able to take some of his medications crushed per nursing, I will change his metoprolol to tartrate instead of succinate #6 hypokalemia-IV potassium supplementation was given today, labs will be rechecked I have reviewed Demond Mayer's progress note including his medical assessment and plan of care and with the above additions endorse it, total clinical time spent by myself reviewing the patient's medical record, addressing the patient's medical issues, and collaborating with the patient's care team: 30 minutes Visit Charges Inpatient E&M: 11277 Subs [facility] L3
[2021-10-09] MEDS: Potassium Chloride 10mEq/100mL 10 MEQ/100 ML IV.SOLN. 100 MEQ IV BOLUS ×4 (10:34→13:55)
[2021-10-09 12:59] VITALS: BP 155/82; PULSE 64; RESP 16; TEMP 36.6; O2SAT 99
[2021-10-09 13:00] LABS: Anion Gap 6 (5-15); BUN 9 mg/dL (7-18); BUN/Creat Ratio 9.2 RATIO (10-20); Calcium,Total 7.6 mg/dL (8.5-10.1); Chloride 109 mmol/L (98-107); Creatinine, Serum 0.98 mg/dL (0.70-1.30); EST Glomerular Filtration Rate 80 mL/min (>60); Est Glom Filt Rate - Afr Amer 96 mL/min (>60); Estimated Creatinine Clearance 56.59 ml/min; Glucose 173 mg/dL (74-106); Potassium 2.7 mmol/L (3.5-5.1); Sodium Level 140 mmol/L (136-145)
[2021-10-09 15:06] VITALS: BP 154/92; PULSE 70; RESP 16; TEMP 36.8; O2SAT 100
[2021-10-09 21:40] VITALS: BP 174/100; PULSE 70; RESP 16; TEMP 36.6; O2SAT 99
[2021-10-09 21:47] VITALS: PULSE 70
[2021-10-09] MEDS: cloNIDine HCl 0.1 MG Tablet PO (21:47)
[2021-10-09] MEDS: NYSTATIN 500,000 UNIT/5 ML UDC 500000 UNIT PO (21:47)
[2021-10-09] MEDS: Metoprolol Tartrate 50 MG Tablet PO (21:47)
[2021-10-10] MEDS: cloNIDine HCl 0.1 MG Tablet PO ×2 (05:03→21:51)
[2021-10-10] MEDS: Potassium Chloride 40 MEQ in Dext 5%-0.45% NS 1,000 ML 125 MEQ IV ×3 (05:03→21:55)
[2021-10-10 05:15] VITALS: BP 176/91; PULSE 66; RESP 16; TEMP 36.6; O2SAT 98
[2021-10-10 06:22] LABS: Anion Gap 7 (5-15); BUN 6 mg/dL (7-18); BUN/Creat Ratio 6.6 RATIO (10-20); Calcium,Total 7.5 mg/dL (8.5-10.1); Chloride 109 mmol/L (98-107); Creatinine, Serum 0.91 mg/dL (0.70-1.30); EST Glomerular Filtration Rate 86 mL/min (>60); Est Glom Filt Rate - Afr Amer 105 mL/min (>60); Estimated Creatinine Clearance 60.95 ml/min; Glucose 159 mg/dL (74-106); Sodium Level 141 mmol/L (136-145)
[2021-10-10] MEDS: Potassium Chloride 10mEq/100mL 10 MEQ/100 ML IV.SOLN. 100 MEQ IV BOLUS ×2 (07:02→08:24)
--- NOTE | 2021-10-10 07:50 | PN.HOSP_ITS ---
Subjective Subjective Patient is a 75-year-old gentleman resident at a assisted facility with previous history of CVA transferred to the ED with failure to thrive. Admitted to regular nursing floor where he is currently undergoing evaluation and management Objective Data Objective Data Vital Signs: Vital Signs Temp Pulse Resp BP Pulse Ox 97.9 F 66 16 176/91 H 98 10/10/21 05:15 10/10/21 05:15 10/10/21 05:15 10/10/21 05:15 10/10/21 05:15 Oxygen Delivery Method Room Air Weight: 59.6 kg Body Mass Index (BMI) 18.8 Intake & Output: Intake and Output for Last 24 Hours 10/08/21 10/09/21 10/10/21 23:59 23:59 23:59 Intake Total 2901.25 / 2901.25 3278.34 / 3278.34 935.42 / 935.42 Output Total 1200 / 1200 600 / 600 Balance 1701.25 / 1701.25 2678.34 / 2678.34 935.42 / 935.42 Medical Nutrition Assessment Dietitian: Malnutrition Criteria Met Start: 10/06/21 13:55 Freq: Status: Active Protocol: Document 10/08/21 11:33 ERIC (Rec: 10/08/21 11:34 SLA [id number]) Nutrition Malnutrition Evidence of Malnutrition Exists Yes Malnutrition (severe): Acute Illness/Injury Evidenced By Suboptimal Energy Intake ( Severe),Weight Loss (Severe) Clinical Problem Acute Disease or Injury Related Malnutrition Etiology severe acute malnutrition r/t inadequate oral intake Signs/Symptoms as evidenced by reported no PO intake x 1 month, unintentional wt loss of 6.6#/ 5% x 9 days 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 Will fortify foods and provide nutritional supplements when PO diet is advanced. Significant risk for refeeding syndrome- recommend close monitoring of electrolytes when PO diet is advanced. If unable to resume PO nutrition, may need to consider enteral nutrition support- consult RDN for further recommendations as needed. Lab / Micro Data Result Diagrams: 10/07/21 07:28 10/10/21 05:25 Labs: Laboratory Results - last 24 hr 10/09/21 12:20: Sodium 140, Potassium 2.7 L*, Chloride 109 H, Carbon Dioxide 25.0, Anion Gap 6, BUN 9, Creatinine 0.98, Estim Creat Clear Calc 56.59, Est GFR (MDRD) Af Amer 96, Est GFR (MDRD) Non-Af 80, BUN/Creatinine Ratio 9.2 L, Glucose 173 H, Calcium 7.6 L 10/10/21 05:25: Sodium 141, Potassium 3.0 L, Chloride 109 H, Carbon Dioxide 25. 0, Anion Gap 7, BUN 6 L, Creatinine 0.91, Estim Creat Clear Calc 60.95, Est GFR (MDRD) Af Amer 105, Est GFR (MDRD) Non-Af 86, BUN/Creatinine Ratio 6.6 L, Glucose 159 H, Calcium 7.5 L Micro: Microbiology 10/08/21 00:14 Sputum, Expectorated/Coughed Gram Stain - Final 10/08/21 00:14 Sputum, Expectorated/Coughed Respiratory Culture - Pre liminary Staphylococcus aureus 10/05/21 19:25 Urine, Catheterized Urine Culture - Final Staphylococcus epidermidis Physical Exam Narrative GENERAL: No apparent distress HEENT: Atraumatic; EYES; Anicteric, Normal Conjunctiva NECK; supple, normal thyroid, RESPIRATORY: Diminished to auscultation CARDIOVASCULAR: Regular S1 S2, GI: soft, normoactive bowel sounds, : No Renal angle tenderness; EXTREMITIES: No edema, no clubbing, MUSCULOSKELETAL: no muscle wasting NEURO: Awake; no lateralizing signs. SKIN: No Rash PSYCH; Flat affect Assessment & Plan Assessment/Plan (1) Adult failure to thrive: (2) Hypokalemia: (3) Dehydration: (4) Hypernatremia: PLAN: 1. Adult failure to thrive ?Admitted to regular nursing floor. Patient is apparently declined to eat. There was consideration for possible PEG tube placement in view of his failure to eat.. Patient scheduled to be reevaluated by speech therapy.. Case management consulted to assist with guardianship to make decisions for patient 2. Physical deconditioning - Requested for PT OT eval and social security assessor to assist with discharge planning 3. Severe dehydration ?Secondary to patient refusal to eat being rehydrated 4. Hypernatremia ?Managed per protocol sodium level down to 141 5. Hypokalemia ?Corrected per protocol 6. Severe protein calorie malnutrition Evidenced by patient acute illness suboptimal energy intake and severe weight loss. Patient severe protein calorie malnutrition is thought to be secondary to decreased oral intake. Recommendation is to reconsult dietitian once patient resumes oral feeding 7. Previous history of CVA ?Patient is on aspirin as well as statin therapy held in view of patient refusal to eat 8. Dyslipidemia ?Patient is on statin therapy 9. Hypertension - Blood pressure controlled, home medications continued with dose adjustment as needed 10. Suspected vascular dementia ?Patient is on donepezil 11. DVT prophylaxis ?SC Harvey Charges/Coding Visit Charges Inpatient E&M: 55531 Subs Hosp L2
[2021-10-10] MEDS: Potassium Chloride 10mEq/100mL 10 MEQ/100 ML IV.SOLN. 75 MEQ IV BOLUS ×2 (09:31→10:53)
--- NOTE | 2021-10-10 10:16 | CASEMGMT ---
Social Work Note SW received message from Iris at [facility] stating she spoke with their social welfare research worker who states pt has no POA and No Emergency contact. Iris states that they were working on legal guardianship for pt. The Statement of Expert Evaluation has been completed. NAZARIO discussed case with Lisa GREENFIELD. NAZARIO encouraged to follow up with Isidra Awan at [facility] Guardianship Program and to follow up with NAZARIO at [facility] to inquire where they are at in the Guardianship process. NAZARIO emailed Isidra Awan to inquire about update on guardianship process. NAZARIO also placed a call to Iris at [facility] and left message asking for their SW to call this worker back. SW also left message for NAZARIO Patel at [facility], to call this worker back regarding pt. SW received email from Isidra stating she may be able to take on pt at this time, asked about Expert Evaluation and pt's finances. SW to continue to follow. Jenny Riley ARCHITECTURAL EXAMINER, SIDE LASTER TACK
--- NOTE | 2021-10-10 11:45 | CASEMGMT ---
Social Work Note NAZARIO received update from Isidra stating if this is an emergency guardianship case to let her know and she will tell this worker the next steps. Isidra provided direct number NAZARIO placed a call to Isidra. NAZARIO informed Isidra that it is an emergency situation as decision needs to be made regarding PEG or Hospice. Isidra states that their guardians cannot handle emergency Guardianships. Isidra recommends [facility] file guardianship through the courts as it can take a month before their guardians can be established for a pt. NAZARIO placed another call to [facility] and left message for Amanda LANGE regarding status of guardianship for pt. NAZARIO to continue to follow. Jenny Riley ASSEMBLER FOR PULLER OVER MACHINE, PULLMAN CAR CLERK
[2021-10-10 12:35] VITALS: BP 145/79; PULSE 60; RESP 18; TEMP 36.5; O2SAT 100
[2021-10-10] MEDS: NYSTATIN 500,000 UNIT/5 ML UDC 500000 UNIT PO (12:40)
[2021-10-10] MEDS: Enoxaparin 40 MG/0.4 ML Syringe SC (12:40)
--- NOTE | 2021-10-10 14:51 | CASEMGMT ---
Addendum entered by Jenny Riley 10/10/21 16:15: NAZARIO updated that [facility] will submit for guardianship. Original Note: Social Work Note NAZARIO placed another call to [facility] (the fourth call today) and spoke with Iris. Iris transferred this worker to Amanda LANGE. NAZARIO spoke with about where [facility] is at in the guardianship process. states they are in the process of getting all of the paperwork put together. states she was told that she needed to get a field human resources manager to take on pt's case and she has called two technology coach and are waiting for a call back. states she is going through [facility]. states no paperwork has been filed yet as again she was told she needed to get a field human resources manager to take pt's case before paperwork could be submitted. states that pt was on Palliative Care while at [facility] but pt decided that he no longer wanted Palliative so pt revoked Palliative. states that at that time, the Palliative Doctor thought that pt was not able to make his own decisions and [facility] started looking into guardianship for pt. NAZARIO to continue to follow. Jenny Riley LOCAL AREA NETWORK ADMINISTRATOR, SALES REPRESENTATIVE [employer]
[2021-10-10 17:46] VITALS: BP 141/82; PULSE 70; RESP 18; TEMP 36.5; O2SAT 99
[2021-10-10 21:53] VITALS: PULSE 72
[2021-10-10] MEDS: Metoprolol Tartrate 50 MG Tablet PO (21:53)
[2021-10-10 21:56] VITALS: BP 162/83; PULSE 72; RESP 16; TEMP 36.8; O2SAT 97
[2021-10-10 22:00] VITALS: O2SAT 97
[2021-10-11 03:52] VITALS: BP 134/72; PULSE 67; RESP 16; TEMP 37; O2SAT 99
[2021-10-11 04:22] LABS: Absolute Lymphocyte Count 1.29 X10^3/uL (0.83-4.51); Absolute Neutrophil Count 6.2 X10^3/uL (2.0-7.7); Basophil# 0.02 X10^3/uL; Basophil% 0.2 % (0-1); Eosinophil# 0.13 X10^3/uL; Eosinophils% 1.6 % (0-5); Hematocrit 29.7 % (40-54); Hemoglobin 10.8 g/dL (13.0-16.5); Lymphocyte # 1.29 X10^3/ul (0.83-4.51); Lymphocyte % 15.4 % (19-41); Mean Corp Hgb Conc 36.4 g/dL (32-36); Mean Corpuscular Hgb 32.4 pg (27.0-32.0); Mean Corpuscular Volume 89.2 fL (80-94); Mean Platelet Vol. 10.4 fl (6.2-12.0); Monocyte# 0.66 X10^3/uL; Monocyte% 7.9 % (0-10); NRBC Flagged by Analyzer 0 % (0-5); Neutrophil # 6.19 X10^3/uL (2.7-7.7); Neutrophil % 74.1 % (47-70); Platelet Count 144 K/mm3 (150-450); RBC Distribution Width CV 13.2 % (11.6-14.6); RBC Distribution Width SD 42.4 fl (35.1-43.9); Red Blood Count 3.33 M/mm3 (4.6-6.2); White Blood Count 8.4 K/mm3 (4.4-11.0)
[2021-10-11 04:49] LABS: Anion Gap 6 (5-15); BUN 6 mg/dL (7-18); BUN/Creat Ratio 6.8 RATIO (10-20); Calcium,Total 7.2 mg/dL (8.5-10.1); Chloride 111 mmol/L (98-107); Creatinine, Serum 0.88 mg/dL (0.70-1.30); EST Glomerular Filtration Rate 90 mL/min (>60); Est Glom Filt Rate - Afr Amer 109 mL/min (>60); Estimated Creatinine Clearance 63.02 ml/min; Glucose 146 mg/dL (74-106); Potassium 3.8 mmol/L (3.5-5.1); Sodium Level 140 mmol/L (136-145)
[2021-10-11] MEDS: Potassium Chloride 40 MEQ in Dext 5%-0.45% NS 1,000 ML 125 MEQ IV ×3 (05:49→22:15)
--- NOTE | 2021-10-11 07:05 | PN.HOSP_ITS ---
Subjective Subjective Patient seen no significant change in clinical condition. Patient hardly engages in any purposeful conversation Objective Data Objective Data Vital Signs: Vital Signs Temp Pulse Resp BP Pulse Ox 98.6 F 67 16 134/72 H 99 10/11/21 03:52 10/11/21 03:52 10/11/21 03:52 10/11/21 03:52 10/11/21 03:52 Oxygen Delivery Method Room Air Weight: 59.6 kg Body Mass Index (BMI) 18.8 Intake & Output: Intake and Output for Last 24 Hours 10/09/21 10/10/21 10/11/21 23:59 23:59 23:59 Intake Total 3278.34 / 3278.34 3375.42 / 3375.42 987.5 / 987.5 Output Total 600 / 600 350 / 550 400 / 400 Balance 2678.34 / 2678.34 3025.42 / 2825.42 587.5 / 587.5 Medical Nutrition Assessment Dietitian: Malnutrition Criteria Met Start: 10/06/21 13:55 Freq: Status: Active Protocol: Document 10/08/21 11:33 SLA (Rec: 10/08/21 11:34 SLA [id number]) Nutrition Malnutrition Evidence of Malnutrition Exists Yes Malnutrition (severe): Acute Illness/Injury Evidenced By Suboptimal Energy Intake ( Severe),Weight Loss (Severe) Clinical Problem Acute Disease or Injury Related Malnutrition Etiology severe acute malnutrition r/t inadequate oral intake Signs/Symptoms as evidenced by reported no PO intake x 1 month, unintentional wt loss of 6.6#/ 5% x 9 days 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 Will fortify foods and provide nutritional supplements when PO diet is advanced. Significant risk for refeeding syndrome- recommend close monitoring of electrolytes when PO diet is advanced. If unable to resume PO nutrition, may need to consider enteral nutrition support- consult RDN for further recommendations as needed. Lab / Micro Data Result Diagrams: 10/11/21 03:24 10/11/21 03:24 Labs: Laboratory Results - last 24 hr 10/11/21 03:24: WBC 8.4, RBC 3.33 L, Hgb 10.8 L, Hct 29.7 L, MCV 89.2, MCH 32.4 H, MCHC 36.4 H, RDW Std Deviation 42.4, RDW Coeff of Josep 13.2, Plt Count 144 L, MPV 10.4, Immature Gran % (Auto) 0.800, Neut % (Auto) 74.1 H, Lymph % (Auto) 15.4 L, [place] % (Auto) 7.9, Eos % (Auto) 1.6, Baso % (Auto) 0.2, Absolute Neuts (auto) 6.2, Absolute Lymphs (auto) 1.29, Nucleated RBC % 0 10/11/21 03:24: Sodium 140, Potassium 3.8, Chloride 111 H, Carbon Dioxide 23.0, Anion Gap 6, BUN 6 L, Creatinine 0.88, Estim Creat Clear Calc 63.02, Est GFR (MDRD) Af Amer 109, Est GFR (MDRD) Non-Af 90, BUN/Creatinine Ratio 6.8 L, Glucose 146 H, Calcium 7.2 L Micro: Microbiology 10/08/21 00:14 Sputum, Expectorated/Coughed Gram Stain - Final 10/08/21 00:14 Sputum, Expectorated/Coughed Respiratory Culture - Final Staphylococcus aureus 10/05/21 19:25 Urine, Catheterized Urine Culture - Final Staphylococcus epidermidis Physical Exam Narrative GENERAL: No apparent distress HEENT: Atraumatic; EYES; Anicteric, Normal Conjunctiva NECK; supple, normal thyroid, RESPIRATORY: Diminished to auscultation CARDIOVASCULAR: Regular S1 S2, GI: soft, normoactive bowel sounds, : No Renal angle tenderness; EXTREMITIES: No edema, no clubbing, MUSCULOSKELETAL: no muscle wasting NEURO: Awake; no lateralizing signs. SKIN: No Rash PSYCH; Flat affect Assessment & Plan Assessment/Plan (1) Adult failure to thrive: (2) Hypokalemia: (3) Dehydration: (4) Hypernatremia: PLAN: 1. Adult failure to thrive ?Admitted to regular nursing floor. Patient is apparently declined to eat. There was consideration for possible PEG tube placement in view of his failure to eat.. Patient scheduled to be reevaluated by speech therapy.. Case manage ment consulted to assist with guardianship to make decisions for patient -10/11/2021; no change in patient's clinical condition 2. Physical deconditioning - Requested for PT OT eval and social work assistant to assist with discharge planning 3. Severe dehydration ?Secondary to patient refusal to eat being rehydrated 4. Hypernatremia ?Managed per protocol sodium level down to 141 5. Hypokalemia ?Corrected per protocol 6. Severe protein calorie malnutrition Evidenced by patient acute illness suboptimal energy intake and severe weight loss. Patient severe protein calorie malnutrition is thought to be secondary to decreased oral intake. Recommendation is to reconsult dietitian once patient r esumes oral feeding 7. Previous history of CVA ?Patient is on aspirin as well as statin therapy held in view of patient refusal to eat 8. Dyslipidemia ?Patient is on statin therapy 9. Hypertension - Blood pressure controlled, home medications continued with dose adjustment as needed 10. Suspected vascular dementia ?Patient is on donepezil 11. DVT prophylaxis ?SC Harvey Charges/Coding Visit Charges Inpatient E&M: 91999 Subs Hosp L2
[2021-10-11 07:43] VITALS: O2SAT 97
[2021-10-11 07:49] VITALS: BP 155/81; PULSE 65; RESP 16; TEMP 36.6; O2SAT 100
[2021-10-11] MEDS: Enoxaparin 40 MG/0.4 ML Syringe SC (09:43)
--- NOTE | 2021-10-11 10:08 | CASEMGMT ---
Addendum entered by Jenny Riley 10/11/21 14:51: NAZARIO received completed document to file for emergency guardianship. NAZARIO faxed facesheet, Expert Evaluation and Supplement for Emergency Guardian of Person document to Neelam Puckett ). Addendum entered by Jenny Riley 10/11/21 13:17: NAZARIO received additional form from Neelam Puckett that needs completed for guardianship to be filed as an emergency. NAZARIO spoke with physician who completed expert evaluation, physician to complete additional form needed for emergency guardianship. Original Note: Social Work Note NAZARIO received message from Earline Vasquez stating Neelam Puckett ([phone]) has agreed to file guardianship for pt. NAZARIO placed a call to Neelam Puckett at [employer]. Neelam states that she will need the expert evaluation, the additional form for emergency guardianship, pt's demographics, and notes that state pt has no family, etc. Neelam states that this information can be faxed to her [phone]. Neelam states she will fax the additional form that needs completed for emergency guardianship to this worker. NAZARIO to continue to follow. Jenny Riley [facility], DELIVERY REP
[2021-10-11 14:39] VITALS: BP 149/79; PULSE 64; RESP 16; TEMP 36.7; O2SAT 100
--- NOTE | 2021-10-11 15:12 | CASEMGMT ---
Social Work SW faxed updates to [facility]. JEAN PIERRE Almanza
[2021-10-11 20:41] VITALS: BP 147/76; PULSE 63; RESP 16; TEMP 37; O2SAT 98
[2021-10-11 21:10] VITALS: PULSE 63
[2021-10-12] VITALS (8 sets, daily range): BP systolic 152–191; BP diastolic 81–102; PULSE 71–107; RESP 16–18; TEMP 36.7–36.9; O2SAT 95–100
[2021-10-12 04:57] LABS: Absolute Lymphocyte Count 1.08 X10^3/uL (0.83-4.51); Absolute Neutrophil Count 6.6 X10^3/uL (2.0-7.7); Basophil# 0.02 X10^3/uL; Basophil% 0.2 % (0-1); Eosinophil# 0.19 X10^3/uL; Eosinophils% 2.2 % (0-5); Hematocrit 32.7 % (40-54); Hemoglobin 11.8 g/dL (13.0-16.5); Lymphocyte # 1.08 X10^3/ul (0.83-4.51); Lymphocyte % 12.8 % (19-41); Mean Corp Hgb Conc 36.1 g/dL (32-36); Mean Corpuscular Volume 88.6 fL (80-94); Mean Platelet Vol. 10.1 fl (6.2-12.0); Monocyte# 0.53 X10^3/uL; Monocyte% 6.3 % (0-10); NRBC Flagged by Analyzer 0 % (0-5); Neutrophil # 6.59 X10^3/uL (2.7-7.7); Neutrophil % 77.8 % (47-70); Platelet Count 142 K/mm3 (150-450); RBC Distribution Width CV 13.1 % (11.6-14.6); RBC Distribution Width SD 41.6 fl (35.1-43.9); Red Blood Count 3.69 M/mm3 (4.6-6.2); White Blood Count 8.5 K/mm3 (4.4-11.0)
[2021-10-12 05:20] LABS: Anion Gap 5 (5-15); BUN 4 mg/dL (7-18); BUN/Creat Ratio 4.7 RATIO (10-20); Calcium,Total 7.4 mg/dL (8.5-10.1); Chloride 107 mmol/L (98-107); Creatinine, Serum 0.84 mg/dL (0.70-1.30); EST Glomerular Filtration Rate 94 mL/min (>60); Est Glom Filt Rate - Afr Amer 114 mL/min (>60); Estimated Creatinine Clearance 66.03 ml/min; Glucose 130 mg/dL (74-106); Potassium 3.2 mmol/L (3.5-5.1); Sodium Level 137 mmol/L (136-145)
[2021-10-12] MEDS: Ondansetron 4 MG/2 ML Vial IV ×2 (06:04→18:25)
[2021-10-12] MEDS: Potassium Chloride 40 MEQ in Dext 5%-0.45% NS 1,000 ML 125 MEQ IV ×2 (06:07→15:05)
--- NOTE | 2021-10-12 07:16 | PN.HOSP_ITS ---
Subjective Subjective Patient seen still refuses to eat. Patient will need nutritional support either in the form of PEG tube or PICC line for TPN. Reluctant to proceed with PEG tube for now since patient cannot give consent and is a significant risk for pulling the PEG tube. An order has therefore been placed for PICC line placement with plans to consult dietitian for TPN. Patient blood pressure not well controlled adjustment made to blood pressure regimen Objective Data Objective Data Vital Signs: Vital Signs Temp Pulse Resp BP Pulse Ox 98.3 F 71 16 153/81 H 99 10/12/21 02:41 10/12/21 02:41 10/12/21 02:41 10/12/21 02:41 10/12/21 02:41 Oxygen Delivery Method Room Air Weight: 59.6 kg Body Mass Index (BMI) 18.8 Intake & Output: Intake and Output for Last 24 Hours 10/10/21 10/11/21 10/12/21 23:59 23:59 23:59 Intake Total 3375.42 / 3375.42 2959.58 / 2959.58 983.33 / 983.33 Output Total 350 / 550 1150 / 1150 500 / 500 Balance 3025.42 / 2825.42 1809.58 / 1809.58 483.33 / 483.33 Medical Nutrition Assessment Dietitian: Malnutrition Criteria Met Start: 10/06/21 13:55 Freq: Status: Active Protocol: Document 10/11/21 14:21 (Rec: 10/11/21 14:21 [id number]) Nutrition Malnutrition Evidence of Malnutrition Exists Yes Malnutrition (severe): Acute Illness/Injury Evidenced By Suboptimal Energy Intake ( Severe),Weight Loss (Severe) Clinical Problem Acute Disease or Injury Related Malnutrition Etiology severe acute malnutrition r/t inadequate oral intake Signs/Symptoms as evidenced by reported no PO intake x 1 month, unintentional wt loss of 6.6#/ 5% x 9 days 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 Will fortify foods and provide nutritional supplements when PO diet is advanced. Significant risk for refeeding syndrome- recommend close monitoring of electrolytes when PO diet is advanced. If unable to resume PO nutrition, may need to consider enteral nutrition support- consult RDN for further recommendations as needed. Lab / Micro Data Result Diagrams: 10/12/21 04:43 10/12/21 04:43 Labs: Laboratory Results - last 24 hr 10/12/21 04:43: WBC 8.5, RBC 3.69 L, Hgb 11.8 L, Hct 32.7 L, MCV 88.6, MCH 32.0, MCHC 36.1 H, RDW Std Deviation 41.6, RDW Coeff of Josep 13.1, Plt Count 142 L, MPV 10.1, Immature Gran % (Auto) 0.700, Neut % (Auto) 77.8 H, Lymph % (Auto) 12.8 L, [place] % (Auto) 6.3, Eos % (Auto) 2.2, Baso % (Auto) 0.2, Absolute Neuts (auto) 6.6, Absolute Lymphs (auto) 1.08, Nucleated RBC % 0 10/12/21 04:43: Sodium 137, Potassium 3.2 L, Chloride 107, Carbon Dioxide 25.0, Anion Gap 5, BUN 4 L, Creatinine 0.84, Estim Creat Clear Calc 66.03, Est GFR (MDRD) Af Amer 114, Est GFR (MDRD) Non-Af 94, BUN/Creatinine Ratio 4.7 L, Glucose 130 H, Calcium 7.4 L Micro: Microbiology 10/08/21 00:14 Sputum, Expectorated/Coughed Gram Stain - Final 10/08/21 00:14 Sputum, Expectorated/Coughed Respiratory Culture - Final Staphylococcus aureus 10/05/21 19:25 Urine, Catheterized Urine Culture - Final Staphylococcus epidermidis Physical Exam Narrative GENERAL: No apparent distress HEENT: Atraumatic; EYES; Anicteric, Normal Conjunctiva NECK; supple, normal thyroid, RESPIRATORY: Diminished to auscultation CARDIOVASCULAR: Regular S1 S2, GI: soft, normoactive bowel sounds, : No Renal angle tenderness; EXTREMITIES: No edema, no clubbing, MUSCULOSKELETAL: no muscle wasting NEURO: Awake; no lateralizing signs. SKIN: No Rash PSYCH; Flat affect Assessment & Plan Assessment/Plan (1) Adult failure to thrive: (2) Hypokalemia: (3) Dehydration: (4) Hypernatremia: PLAN: 1. Adult failure to thrive ?Admitted to regular nursing floor. Patient is apparently declined to eat. There was consideration for possible PEG tube placement in view of his failure to eat.. Patient scheduled to be reevaluated by speech therapy.. Case m colin consulted to assist with guardianship to make decisions for patient -10/11/2021; no change in patient's clinical condition 10/12/2021; Patient seen still refuses to eat. Patient will need nutritional support either in the form of PEG tube or PICC line for TPN. Reluctant to proceed with PEG tube for now since patient cannot give consent and is a significant risk for pulling the PEG tube. An order has therefore been placed for PICC line placement with plans to consult dietitian for TPN. 2. Physical deconditioning - Requested for PT OT eval and nursing home social worker to assist with discharge planning 3. Severe dehydration ?Secondary to patient refusal to eat being rehydrated 4. Hypernatremia ?Managed per protocol sodium level down to 141 5. Hypokalemia ?Corrected per protocol 6. Severe protein calorie malnutrition Evidenced by patient acute illness suboptimal energy intake and severe weight loss. Patient severe protein calorie malnutrition is thought to be secondary to decreased oral intake. Recommendation is to reconsult dietitian once patient resumes oral feeding 7. Previous history of CVA ?Patient is on aspirin as well as statin therapy held in view of patient refusal to eat 8. Dyslipidemia ?Patient is on statin therapy 9. Hypertension - Blood pressure controlled, home medications continued with dose adjustment as needed -10/12/2021 Patient blood pressure not well controlled adjustment made to blood pressure regimen 10. Suspected vascular dementia ?Patient is on donepezil 11. DVT prophylaxis ?[facility] [place] Charges/Coding Visit Charges Inpatient E&M: 51843 Disch Hosp
[2021-10-12] MEDS: Potassium Chloride 10mEq/100mL 10 MEQ/100 ML IV.SOLN. 100 MEQ IV BOLUS ×4 (08:23→13:45)
--- NOTE | 2021-10-12 10:50 | CASEMGMT ---
Social Work Note SW answered additional questions for Plastics Patternmaker Neelam Puckett. Neelam states she is filing for emergency guardianship for pt today. Jneny Riley FRAMING INSPECTOR, DEVULCANIZER CHARGER
[2021-10-12] MEDS: hydrALAZINE 20 MG/ML Vial 10 MG IV ×2 (11:18→18:25)
--- NOTE | 2021-10-12 15:43 | CASEMGMT ---
Social Work Note SW sent Original Expert Evaluation and Emergency Supplement to Nicky Puckett at [facility] per her request. Tracking number for mail is [id number] [id number]. Jenny Riley MSW, REQUIREMENTS ANALYST
--- NOTE | 2021-10-12 15:49 | NURSING ---
pt cooperative during picc line placement. government instructor at bedside
--- NOTE | 2021-10-12 16:18 | CASEMGMT ---
Social Work Note Emergency Guardianship received for pt. Pt's emergency Guardian is Nicky Puckett. Office phone number is [phone] and after business office hours she can be reached at [phone]. SW placed Emergency Guardianship on pt's chart. Jenny Riley MASTER CONTROL ENGINEER, BARK TANNER
[2021-10-12] MEDS: proCHLORPERazine 10 MG/2 ML Vial 5 MG IV (21:27)
--- NOTE | 2021-10-12 21:39 | RAD_ITS ---
EXAM: XR ABDOMEN, 1 VIEW CLINICAL INDICATION: nausea and vomiting TECHNIQUE: Frontal supine view of the abdomen/pelvis. This report was created using ETARGET report generation technology. COMPARISON: October 05, 2021 FINDINGS: LIMITATIONS: Limited assessment for urolithiasis. LOWER THORAX: Lung bases are clear. GASTROINTESTINAL TRACT: Small bowel loops measuring up to 3.5 cm. Consider a developing bowel obstruction. ORGANS: Unremarkable as visualized. No organomegaly. No abnormal calcifications. BONES/JOINTS: Degenerative changes of the spine. Degenerative changes of the hip joints. SOFT TISSUES: No acute pathology. VASCULATURE: Phleboliths in the left pelvis. RAD/Abdomen Single View (Portable) IMPRESSION: Small bowel loops measure up to 3.5 cm. Consider a developing bowel obstruction. Electronically Signed: Lalito Lopez MD at 21:59 EST ,
[2021-10-13] VITALS (8 sets, daily range): BP systolic 128–179; BP diastolic 73–116; PULSE 79–111; RESP 18; TEMP 36.1–36.9; O2SAT 97–100
--- NOTE | 2021-10-13 00:44 | PCM.HOSP.N ---
Hospitalist Note Patient with nausea, emesis bouts. KUB obtained with concern for SBO. Will continue strict NPO already instituted, attempt placement NGT, obtain KUB following and repeat in AM, start IV famotidine, consult General surgery.
--- NOTE | 2021-10-13 00:55 | CT_ITS ---
EXAM: CT ABDOMEN AND PELVIS WITH INTRAVENOUS CONTRAST CLINICAL INDICATION: vomiting TECHNIQUE: Helically acquired images were obtained of the abdomen and pelvis with intravenous contrast. CTDIvol = ( 10.79 ) mGy, DLP = ( 973.55 ) mGycm This CT exam was performed using one or more of the following dose reduction techniques: automated exposure control, adjustment of the mA and/or kV according to patient size, and/or use of iterative reconstruction technique. This report was created using Voltari report generation technology. CONTRAST: IV 100mL Isovue-300 COMPARISON: CT abdomen pelvis 04/27/2015 FINDINGS: LOWER THORAX: At least a small hiatal hernia present. Small pleural effusions with adjacent passive atelectasis. Lung bases are clear. No cardiomegaly. ABDOMEN: LIVER: Unremarkable. Homogeneous. No focal mass. GALLBLADDER AND BILE DUCTS: Unremarkable. No calcified gallstones. No gallbladder distention or wall edema. No intra- or extrahepatic biliary ductal dilation. PANCREAS: Unremarkable. No focal cystic or solid mass. SPLEEN: Unremarkable. Normal size without focal cystic or solid mass. ADRENALS: Unremarkable. No nodules. KIDNEYS AND URETERS: Left renal exophytic cyst measuring up to 3.8 cm laterally. No additional follow-up needed as this is benign. No other renal abnormalities. Normal renal size and position. No hydronephrosis. STOMACH AND BOWEL: Fluid within nondistended loops of small bowel can be seen with gastroenteritis in the appropriate clinical setting with no wall thickening or surrounding inflammation. No bowel obstruction. PELVIS: APPENDIX: No evidence of acute appendicitis. BLADDER: Unremarkable. REPRODUCTIVE: Unremarkable as visualized. No mass. ABDOMEN and PELVIS: INTRAPERITONEAL SPACE: Unremarkable. No ascites or other fluid collection. No free air. BONES/JOINTS: Degenerative changes of the spine at multiple levels. No suspicious lytic or blastic abnormality. SOFT TISSUES: Small fat-containing inguinal hernias bilaterally, left larger than right. VASCULATURE: Unremarkable. Abdominal aorta is non-dilated. LYMPH NODES: Unremarkable. No enlarged lymph nodes. TUBES, LINES AND DEVICES: Tip of transesophageal catheter is at the proximal to mid stomach. CT/Abdomen/Pelvis W IV Cont ONLY IMPRESSION: Fluid within nondistended loops of small bowel can be seen with gastroenteritis in the appropriate clinical setting with no wall thickening or surrounding inflammation Electronically Signed: Lalito Lopez MD at 2:45 EST ,
[2021-10-13] MEDS: Famotidine 200 MG/20 ML MDV 20 MG in 0.9% Normal Saline (Pres. free 8 ML 300 MG IV ×3 (01:17→21:10)
[2021-10-13] MEDS: Potassium Chloride 40 MEQ in Dext 5%-0.45% NS 1,000 ML 125 MEQ IV ×2 (01:17→09:24)
[2021-10-13 05:00] LABS: Absolute Lymphocyte Count 0.63 X10^3/uL (0.83-4.51); Absolute Neutrophil Count 11.9 X10^3/uL (2.0-7.7); Basophil# 0.02 X10^3/uL; Basophil% 0.2 % (0-1); Hematocrit 36.3 % (40-54); Hemoglobin 12.6 g/dL (13.0-16.5); Lymphocyte # 0.63 X10^3/ul (0.83-4.51); Lymphocyte % 4.8 % (19-41); Mean Corp Hgb Conc 34.7 g/dL (32-36); Mean Corpuscular Volume 89.4 fL (80-94); Mean Platelet Vol. 10.3 fl (6.2-12.0); Monocyte# 0.56 X10^3/uL; Monocyte% 4.2 % (0-10); NRBC Flagged by Analyzer 0.2 % (0-5); Neutrophil # 11.93 X10^3/uL (2.7-7.7); Neutrophil % 90.2 % (47-70); Platelet Count 180 K/mm3 (150-450); RBC Distribution Width CV 13.2 % (11.6-14.6); RBC Distribution Width SD 42.5 fl (35.1-43.9); Red Blood Count 4.06 M/mm3 (4.6-6.2); White Blood Count 13.2 K/mm3 (4.4-11.0)
[2021-10-13 05:22] LABS: Anion Gap 7 (5-15); BUN 8 mg/dL (7-18); BUN/Creat Ratio 8.4 RATIO (10-20); Calcium,Total 7.4 mg/dL (8.5-10.1); Chloride 103 mmol/L (98-107); Creatinine, Serum 0.95 mg/dL (0.70-1.30); EST Glomerular Filtration Rate 82 mL/min (>60); Est Glom Filt Rate - Afr Amer 100 mL/min (>60); Estimated Creatinine Clearance 58.38 ml/min; Glucose 182 mg/dL (74-106); Potassium 3.9 mmol/L (3.5-5.1); Sodium Level 135 mmol/L (136-145)
--- NOTE | 2021-10-13 06:54 | CON.PCM.SX_ITS ---
Assessment & Plan Assessment/Plan (1) Gastroenteritis: PLAN: The patient had a CT scan overnight which showed fluid in nondilated loops of small bowel and gas in the colon. I do not believe the patient has a bowel obstruction but the CT scan suggested gastroenteritis. I will check a UA and urine culture to make sure he is not having an ileus from UTI. The patient's output from his NG is still dark this morning although the patient reports that it did help but he is not having as much abdominal pain. His abdomen is soft and nondistended. I would like to keep the NG in until the output clears up a little bit and then it can be removed. He reports he is passing flatus. I will check back on him later today and tomorrow morning and hopefully remove the NG soon. Messi Wilhelm MD Pager: [facility] [address] [place] [address], [address] [place] [id number] Office: HPI Consult Data Date of Consult: 10/13/21 HPI Narrative HPI Narrative: CARY JEFFRIES, is a 75 M who was admitted with no insufficiency. Patient began to have nausea and vomiting and abdominal pain yesterday. Patient reports he is passing flatus. He says the NG tube helped. [facility] Medical History Anxiety Cellulitis of right lower limb COVID-19 Dementia Essential hypertension Hyperlipemia Muscle weakness (generalized) Need for assistance with personal care Paranoid personality disorder Type 2 diabetes mellitus without complication Home Medications amlodipine 10 mg PO QHS 03/11/21 [History Last Taken Unknown] famotidine [Pepcid] 20 mg PO DAILY 03/11/21 [History Last Taken Unknown] aspirin 81 mg PO DAILY #30 tab 03/14/21 [Rx Last Taken Unknown] quetiapine [Seroquel] 50 mg PO QHS 09/06/21 [History Last Taken Unknown] aluminum-magnesium hydroxide 30 ml PO Q4H PRN 10/05/21 [History Last Taken Unknown] aripiprazole 5 mg PO/SL DAILY 10/05/21 [History Last Taken Unknown] atorvastatin 1 mg PO QHS 10/05/21 [History Last Taken Unknown] bisacodyl 10 mg VA DAILY 10/05/21 [History Last Taken Unknown] bupropion HCl [Wellbutrin XL] 150 mg PO QHS 10/05/21 [History Last Taken Unknown] cascara sagrada-mag hydroxide [Milk of [place]-Sarah] 30 ml PO PRN 10/05/21 [History Last Taken Unknown] clonidine HCl 0.1 mg PO TID 10/05/21 [History Last Taken Unknown] cyanocobalamin (vitamin B-12) 500 mcg PO DAILY 10/05/21 [History Last Taken Unknown] donepezil 5 mg PO/SL BID 10/05/21 [History Last Taken Unknown] folic acid 1 mg PO/SL DAILY 10/05/21 [History Last Taken Unknown] guaifenesin 10 mg PO/SL Q4H PRN 10/05/21 [History Last Taken Unknown] memantine 10 mg PO QHS 10/05/21 [History Last Taken Unknown] metoprolol tartrate 50 mg PO BID 10/05/21 [History Last Taken Unknown] mirtazapine 30 mg PO QHS 10/05/21 [History Last Taken Unknown] potassium bicarbonate 1 ea PO BID 10/05/21 [History Last Taken Unknown] Allergy/AdvReac Type Severity Reaction Status Date / Time amoxicillin Allergy Unknown Verified 03/11/21 16:49 erythromycin base Allergy NEEDS Verified 03/11/21 19:01 FOLLOW-UP propoxyphene [From Darvon] Allergy Unknown Verified 03/11/21 16:49 sulfamethoxazole Allergy NEEDS Verified 03/11/21 19:01 [From Bactrim] FOLLOW-UP trimethoprim [From Bactrim] Allergy NEEDS Verified 03/11/21 19:01 FOLLOW-UP Family History unable to obtain Surgical History History of appendectomy Social History Smoking Status: Never smoker ROS Constitutional Constitutional: Reports anorexia; Denies fatigue or fever(s) Cardiovascular Cardiovascular: Denies chest pain Respiratory/Chest Respiratory/Chest: Denies cough or dyspnea Gastrointestinal Gastrointestinal: Reports abdominal pain, nausea and vomiting Musculoskeletal Musculoskeletal: Denies abnormal gait Integumentary Integumentary: Denies jaundice Neurologic Neurologic: Denies dizziness Physical Exam Const alert and oriented x3 Resp normal respiratory effort and normal air movement Cardio regular rate and regular rhythm GI soft to palpation, non-tender and non-distended Medical Records Data Medical Nutrition Assessment Dietitian: Malnutrition Criteria Met Start: 10/06/21 13:55 Freq: Status: Active Protocol: Document 10/11/21 14:21 AG (Rec: 10/11/21 14:21 [id number]) Nutrition Malnutrition Evidence of Malnutrition Exists Yes Malnutrition (severe): Acute Illness/Injury Evidenced By Suboptimal Energy Intake ( Severe),Weight Loss (Severe) Clinical Problem Acute Disease or Injury Related Malnutrition Etiology severe acute malnutrition r/t inadequate oral intake Signs/Symptoms as evidenced by reported no PO intake x 1 month, unintentional wt loss of 6.6#/ 5% x 9 days 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 Will fortify foods and provide nutritional supplements when PO diet is advanced. Significant risk for refeeding syndrome- recommend close monitoring of electrolytes when PO diet is advanced. If unable to resume PO nutrition, may need to consider enteral nutrition support- consult RDN for further recommendations as needed. Lab / Micro Data Result Diagrams: 10/13/21 03:37 10/13/21 03:37 Labs: Laboratory Results - last 24 hr 10/13/21 03:37: WBC 13.2 H, RBC 4.06 L, Hgb 12.6 L, Hct 36.3 L, MCV 89.4, MCH 31.0, MCHC 34.7, RDW Std Deviation 42.5, RDW Coeff of Josep 13.2, Plt Count 180, MPV 10.3, Immature Gran % (Auto) 0.600, Neut % (Auto) 90.2 H, Lymph % (Auto) 4.8 L, [place] % (Auto) 4.2, Eos % (Auto) 0.0, Baso % (Auto) 0.2, Absolute Neuts (auto) 11.9 H, Absolute Lymphs (auto) 0.63 L, Nucleated RBC % 0.2 10/13/21 03:37: Sodium 135 L, Potassium 3.9, Chloride 103, Carbon Dioxide 25.0, Anion Gap 7, BUN 8, Creatinine 0.95, Estim Creat Clear Calc 58.38, Est GFR (MDRD) Af Amer 100, Est GFR (MDRD) Non-Af 82, BUN/Creatinine Ratio 8.4 L, Glucose 182 H, Calcium 7.4 L Radiology Impression KUB X-Ray 10/12/21 21:39 IMPRESSION: Small bowel loops measure up to 3.5 cm. Consider a developing bowel obstruction. Electronically Signed: Lalito Lopez MD at 21:59 EST , Abdomen/Pelvis CT 10/13/21 00:55 IMPRESSION: Fluid within nondistended loops of small bowel can be seen with gastroenteritis in the appropriate clinical setting with no wall thickening or surrounding inflammation Electronically Signed: Lalito Lopez MD at 2:45 EST ,
--- NOTE | 2021-10-13 07:26 | PCM.PN.HOSP ---
Subjective Subjective Patient did develop several bouts of emesis during the night subsequent imaging studies with CAT scan obtained did show Fluid within nondistended loops of small bowel can be seen with gastroenteritis in the appropriate clinical setting with no wall thickening or surrounding inflammation, consult subsequently placed to general surgery Objective Data Objective Data Vital Signs: Vital Signs Temp Pulse Resp BP Pulse Ox 98.3 F 111 H 18 159/95 H 98 10/13/21 02:36 10/13/21 02:36 10/13/21 02:36 10/13/21 02:42 10/13/21 02:36 Oxygen Delivery Method Room Air Weight: 59.6 kg Body Mass Index (BMI) 18.8 Intake & Output: Intake and Output for Last 24 Hours 10/11/21 10/12/21 10/13/21 23:59 23:59 23:59 Intake Total 2959.58 / 2959.58 3923.33 / 3923.33 260 / 260 Output Total 1150 / 1150 1500 / 1500 Balance 1809.58 / 1809.58 2423.33 / 2423.33 260 / 260 Medical Nutrition Assessment Dietitian: Malnutrition Criteria Met Start: 10/06/21 13:55 Freq: Status: Active Protocol: Document 10/11/21 14:21 AG (Rec: 10/11/21 14:21 AG [id number]) Nutrition Malnutrition Evidence of Malnutrition Exists Yes Malnutrition (severe): Acute Illness/Injury Evidenced By Suboptimal Energy Intake ( Severe),Weight Loss (Severe) Clinical Problem Acute Disease or Injury Related Malnutrition Etiology severe acute malnutrition r/t inadequate oral intake Signs/Symptoms as evidenced by reported no PO intake x 1 month, unintentional wt loss of 6.6#/ 5% x 9 days 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 Will fortify foods and provide nutritional supplements when PO diet is advanced. Significant risk for refeeding syndrome- recommend close monitoring of electrolytes when PO diet is advanced. If unable to resume PO nutrition, may need to consider enteral nutrition support- consult RDN for further recommendations as needed. Lab / Micro Data Result Diagrams: 10/13/21 03:37 10/13/21 03:37 Labs: Laboratory Results - last 24 hr 10/13/21 03:37: WBC 13.2 H, RBC 4.06 L, Hgb 12.6 L, Hct 36.3 L, MCV 89.4, MCH 31.0, MCHC 34.7, RDW Std Deviation 42.5, RDW Coeff of Josep 13.2, Plt Count 180, MPV 10.3, Immature Gran % (Auto) 0.600, Neut % (Auto) 90.2 H, Lymph % (Auto) 4.8 L, [place] % (Auto) 4.2, Eos % (Auto) 0.0, Baso % (Auto) 0.2, Absolute Neuts (auto) 11.9 H, Absolute Lymphs (auto) 0.63 L, Nucleated RBC % 0.2 10/13/21 03:37: Sodium 135 L, Potassium 3.9, Chloride 103, Carbon Dioxide 25.0, Anion Gap 7, BUN 8, Creatinine 0.95, Estim Creat Clear Calc 58.38, Est GFR (MDRD) Af Amer 100, Est GFR (MDRD) Non-Af 82, BUN/Creatinine Ratio 8.4 L, Glucose 182 H, Calcium 7.4 L Micro: Microbiology 10/08/21 00:14 Sputum, Expectorated/Coughed Gram Stain - Final 10/08/21 00:14 Sputum, Expectorated/Coughed Respiratory Culture - Final Staphylococcus aureus 10/05/21 19:25 Urine, Catheterized Urine Culture - Final Staphylococcus epidermidis Radiography Diagnostic Testing: Radiology Impression KUB X-Ray 10/12/21 21:39 IMPRESSION: Small bowel loops measure up to 3.5 cm. Consider a developing bowel obstruction. Electronically Signed: Lalito Lopez MD at 21:59 EST , Abdomen/Pelvis CT 10/13/21 00:55 IMPRESSION: Fluid within nondistended loops of small bowel can be seen with gastroenteritis in the appropriate clinical setting with no wall thickening or surrounding inflammation Electronically Signed: Lalito Lopez MD at 2:45 EST , Physical Exam Narrative GENERAL: No apparent distress HEENT: Atraumatic; NG tube in place EYES; Anicteric, Normal Conjunctiva NECK; supple, normal thyroid, RESPIRATORY: Diminished to auscultation CARDIOVASCULAR: Regular S1 S2, GI: soft, normoactive bowel sounds, : No Renal angle tenderness; EXTREMITIES: No edema, no clubbing, MUSCULOSKELETAL: no muscle wasting NEURO: Awake; no lateralizing signs. SKIN: No Rash PSYCH; Flat affect Assessment & Plan Assessment/Plan (1) Adult failure to thrive: (2) Hypokalemia: (3) Dehydration: (4) Hypernatremia: PLAN: 1. Adult failure to thrive ?Admitted to regular nursing floor. Patient is apparently declined to eat. There was consideration for possible PEG tube placement in view of his failure to eat.. Patient scheduled to be reevaluated by speech therapy.. Case management consulted to assist with guardianship to make decisions for patient -10/11/2021; no change in patient's clinical condition 10/12/2021; Patient seen still refuses to eat. Patient will need nutritional support either in the form of PEG tube or PICC line for TPN. Reluctant to proceed with PEG tube for now since patient cannot give consent and is a significant risk for pulling the PEG tube. An order has therefore been placed for PICC line placement with plans to consult dietitian for TPN. -10/13/2021. Guardianship was obtained the day prior. Plan is to discuss with emergency guardian regarding patient's care obtain consent for possible PEG tube placement 2. Ileus -10/13/2021 patient did develop several bouts of emesis during the night subsequent imaging studies with CAT scan obtained did show Fluid within nondistended loops of small bowel can be seen with gastroenteritis in the appropriate clinical setting with no wall thickening or surrounding inflammation,. NG tube was placed to low intermittent suction, consult subsequently placed to general surgery subsequent monitoring with serial imaging ordered. 3. Severe dehydration ?Secondary to patient refusal to eat being rehydrated 4. Hypernatremia ?Managed per protocol sodium level down to 141 -22 sodium level down to 136 5. Hypokalemia ?Corrected per protocol 6. Severe protein calorie malnutrition Evidenced by patient acute illness suboptimal energy intake and severe weight loss. Patient severe protein calorie malnutrition is thought to be secondary to decreased oral intake. Recommendation is to reconsult dietitian once patient resumes oral feeding 7. Previous history of CVA ?Patient is on aspirin as well as statin therapy held in view of patient refusal to eat 8. Dyslipidemia ?Patient is on statin therapy 9. Hypertension - Blood pressure controlled, home medications continued with dose adjustment as needed -10/12/2021 Patient blood pressure not well controlled adjustment made to blood pressure regimen 10. Suspected vascular dementia ?Patient is on donepezil 11. DVT prophylaxis ?[place] Lovenox 12. Physical deconditioning - Requested for PT OT eval and child protective services social worker to assist with discharge planning Charges/Coding Visit Charges Inpatient E&M: 64892 Subs Hosp L3
--- NOTE | 2021-10-13 09:15 | RAD_ITS ---
STUDY: X-RAY - ABDOMEN/PELVIS REASON FOR EXAM: Male, 75 years old. SBO TECHNIQUE: Single AP view of the abdomen / pelvis. COMPARISON: Yesterday FINDINGS: Esophagogastric tube has been placed with tip in the medial left upper abdomen, side port in region of GE junction. Decreased gaseous distention of small bowel since prior x-ray. There is no demonstrated free abdominal air. The visualized liver, spleen and kidneys are grossly normal in size and morphology. Excreted contrast in the urinary bladder. There are diffuse degenerative changes of the visualized lumbar spine. RAD/Abdomen Single View (Portable) IMPRESSION: 1. Esophagogastric tube in the upper stomach. Recommend advancing 5 cm. 2. Decreasing bowel dilation. Electronically Signed: Dominic Mares MD (Brooks) at 9:33 EST ,
[2021-10-13] MEDS: Folic Acid 1 MG Tablet GT (09:25)
[2021-10-13] MEDS: cloNIDine HCl 0.1 MG Tablet GT (09:25)
[2021-10-13] MEDS: Metoprolol Tartrate 50 MG Tablet GT (09:26)
[2021-10-13] MEDS: amLODIPine 10 MG Tablet GT (09:27)
[2021-10-13] MEDS: Donepezil HCl 5 MG Tablet GT (09:27)
--- NOTE | 2021-10-13 09:27 | CASEMGMT ---
Social Work Note SW received call from Eli at [facility] [address] stating she needs to come see pt today. She will provide pt with guardianship paperwork and will provide copy to staff to put on pt's chart. Eli will be at [facility] between 10-10:30am to speak with pt. Jenny Riley PIPE LINE INSPECTOR, ELECTRICIAN RECTIFIER MAINTENANCE
[2021-10-13] MEDS: QUEtiapine 25 MG Tablet 50 MG GT (09:28)
[2021-10-13] MEDS: ARIPiprazole 5 MG Tablet GT (09:28)
[2021-10-13] MEDS: Enoxaparin 40 MG/0.4 ML Syringe SC (09:28)
[2021-10-13] MEDS: Potassium Chloride Oral Soln 20 MEQ/15 ML UDC 40 MEQ GT (09:32)
[2021-10-13] MEDS: Aspirin 81 MG TAB.CHEW GT (09:32)
[2021-10-13 10:20] LABS: Bacteria 0 SEEN /hpf (None Seen); Mucous, Urine 0 SEEN /hpf (<or=2+); Red Blood Cells-Urine 0 SEEN /hpf (0-5); Squamous Epithelial Cells - UA 0 SEEN /hpf (0-5)
[2021-10-13 10:24] LABS: Color, Urine Yellow (Yellow); Glucose, Dipstick Normal (Normal); Ketone-Dipstick Negative (Negative); Leukocyte Esterase-Dipstick 100 /ul (Negative); Nitrite-Dipstick Positive (Negative); Occult Blood-Urine 10 /ul (Negative); Protein-Dipstick 15 mg/dl (Negative); Specific Gravity, Urine 1.005 (1.002-1.030); Urine Bilirubin Dipstick Negative (Negative); Urine Clarity Clear (Clear); Urine Urobilinogen Normal (Normal); Urine pH 6.5 (5.0 - 8.0)
[2021-10-13 10:33] LABS: White Blood Cells 5-10 SEEN /hpf (0-5)
--- NOTE | 2021-10-13 11:21 | CASEMGMT ---
Social Work Note NAZARIO spoke with Joan, inside sales representative from [facility], stating she spoke with pt regarding court hearing tomorrow. Joan states pt does want a assistant chief nursing officer present tomorrow and does want to be present for Court Hearing. Joan states she will update Ray at [facility] that pt wants a assistant chief nursing officer present and Ray handles arranging the assistant chief nursing officer for pt. Joan states just to reach out to Ray at [facility] for information regarding pt being present for Court Hearing tomorrow. NAZARIO placed a call to [facility] and spoke with Raphael. Raphael states she will check with the pipeman to allow the Zoom meeting information to be sent to this worker for pt. NAZARIO also updated Ray that Joan came to see pt today and pt had told her that pt wanted a assistant chief nursing officer. Raphael states that usually the assistant chief nursing officer will attend the Court Hearing for pt and she will take care of that. NAZARIO updated general manager food. Jenny Riley LUMBER PLANER, SECURITY FLEX OFFICER
[2021-10-13] MEDS: 0.9% Saline Lock 10 ML Syringe IV (14:29)
[2021-10-13] MEDS: Ondansetron 4 MG/2 ML Vial IV (14:29)
--- NOTE | 2021-10-13 15:05 | CASEMGMT ---
Social Work Note SW received email from Kecia at [facility] [address] with Zoom information for court hearing. The Court Hearing is scheduled for SundayOctober 14 at 12:00pm. Meeting ID: [id number] Passcode: [id number] Jenny BEAR, FOOD SAFETY AUDITOR
--- NOTE | 2021-10-13 15:18 | PCM.HOSP.N ---
Hospitalist Note Called and updated patient's emergency guardian Nicky Puckett regarding patient's clinical condition and patient's refusal to eat and patient pulling out her NG tube report did agree that best line of care for patient will be to obtain hospice/palliative care. Consult subsequently placed.
--- NOTE | 2021-10-13 17:26 | CASEMGMT ---
Addendum entered by Jenny Riley 10/13/21 17:34: NAZARIO placed a call to Iris at [facility] stating Emergency Guardianship was obtained. Referral was placed for Hospice. Original Note: Social Work Note SW received consult for Hospice Referral. NAZARIO placed a call to [facility] and provided Hospice referral to Leandra. NAZARIO faxed referral to [facility]. Plan: Hospice consult Jenny Riley GEOTHERMAL SYSTEM INSTALLER, CANDLE MOLDER MACHINE
[2021-10-13 17:56] LABS: Bedside Glucose 161 mg/dL (70-110)
[2021-10-13] MEDS: hydrALAZINE 20 MG/ML Vial 10 MG IV (21:09)
[2021-10-13 21:31] LABS: Bedside Glucose 142 mg/dL (70-110)
[2021-10-14] VITALS (8 sets, daily range): BP systolic 140–169; BP diastolic 75–89; PULSE 71–97; RESP 16–18; TEMP 36.4–36.8; O2SAT 95–98
[2021-10-14] MEDS: hydrALAZINE 20 MG/ML Vial 10 MG IV ×2 (03:14→09:02)
[2021-10-14 06:35] LABS: Phosphorus 1.9 mg/dL (2.5-4.9)
[2021-10-14 06:41] LABS: Bedside Glucose 143 mg/dL (70-110)
--- NOTE | 2021-10-14 07:20 | PN.HOSP_ITS ---
Subjective Subjective Called and updated patient's emergency guardian Nicky Italo regarding patient's clinical condition and patient's refusal to eat and patient pulling out her NG tube report did agree that best line of care for patient will be to obtain hospice/palliative care. Consult subsequently placed Objective Data Objective Data Vital Signs: Vital Signs Temp Pulse Resp BP Pulse Ox 98.2 F 71 18 140/76 H 98 10/14/21 03:06 10/14/21 03:14 10/14/21 03:06 10/14/21 06:31 10/14/21 03:06 Oxygen Delivery Method Room Air Weight: 64.954 kg Body Mass Index (BMI) 18.8 Intake & Output: Intake and Output for Last 24 Hours 10/12/21 10/13/21 10/14/21 23:59 23:59 23:59 Intake Total 3923.33 / 3923.33 2416.58 / 2416.58 Output Total 1500 / 1500 700 / 700 450 / 450 Balance 2423.33 / 2423.33 1716.58 / 1716.58 -450 / -450 Medical Nutrition Assessment Dietitian: Malnutrition Criteria Met Start: 10/06/21 13:55 Freq: Status: Active Protocol: Document 10/13/21 10:19 AG (Rec: 10/13/21 10:19 AG [id number]) Nutrition Malnutrition Evidence of Malnutrition Exists Yes Malnutrition (severe): Acute Illness/Injury Evidenced By Suboptimal Energy Intake ( Severe),Weight Loss (Severe) Clinical Problem Acute Disease or Injury Related Malnutrition Etiology severe acute malnutrition r/t inadequate oral intake Signs/Symptoms as evidenced by reported no PO intake x 1 month, unintentional wt loss of 6.6#/ 5% x 9 days 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 2) Significant risk for refeeding syndrome- close monitoring of electrolytes as enteral nutrition initiated. Will start w/ 10 calories/kg/ day to prevent refeeding syndrome. 3) Recommend regular diet- texture/consistency modifications per RELIEF MAN if PO intake appropriate. 4) Consider PEG placement if unable to advance PO diet for long-term nutrition support. 5) Daily wts, will monitor mag /phos closely. Lab / Micro Data Result Diagrams: 10/13/21 03:37 10/13/21 03:37 Labs: Laboratory Results - last 24 hr 10/13/21 09:50: Urine Color Yellow, Urine Clarity Clear, Urine pH 6.5, Ur Spec ific [place] 1.005, Urine Protein 15 H, Urine Glucose (UA) Normal, Urine Ketones Negative, Urine Occult Blood 10 H, Urine Nitrite Positive H, Urine Bilirubin Negative, Urine Urobilinogen Normal, Ur Leukocyte Esterase 100 H, Urine RBC 0 SEEN, Urine WBC 5-10 SEEN, Ur Squamous Epith Cells 0 SEEN, Urine Bacteria 0 SEEN, Urine Mucus 0 SEEN 10/13/21 17:50: POC Glucose 161 H 10/13/21 21:24: POC Glucose 142 H 10/14/21 05:30: Phosphorus 1.9 L, Magnesium TNP 10/14/21 06:33: POC Glucose 143 H Micro: Microbiology 10/08/21 00:14 Sputum, Expectorated/Coughed Gram Stain - Final 10/08/21 00:14 Sputum, Expectorated/Coughed Respiratory Culture - Final Staphylococcus aureus 10/05/21 19:25 Urine, Catheterized Urine Culture - Final Staphylococcus epidermidis Radiography Diagnostic Testing: Radiology Impression KUB X-Ray 10/13/21 09:15 IMPRESSION: 1. Esophagogastric tube in the upper stomach. Recommend advancing 5 cm. 2. Decreasing bowel dilation. Electronically Signed: Dominic Mares MD (Brooks) at 9:33 EST Reading Location ID and State: [facility] / [place] , Service support , Physical Exam Narrative GENERAL: No apparent distress HEENT: Atraumatic; NG tube in place EYES; Anicteric, Normal Conjunctiva NECK; supple, normal thyroid, RESPIRATORY: Diminished to auscultation CARDIOVASCULAR: Regular S1 S2, GI: soft, normoactive bowel sounds, : No Renal angle tenderness; EXTREMITIES: No edema, no clubbing, MUSCULOSKELETAL: no muscle wasting NEURO: Awake; no lateralizing signs. SKIN: No Rash PSYCH; Flat affect Assessment & Plan Assessment/Plan (1) Adult failure to thrive: (2) Hypokalemia: (3) Dehydration: (4) Hypernatremia: PLAN: 1. Adult failure to thrive ?Admitted to regular nursing floor. Patient is apparently declined to eat. There was consideration for possible PEG tube placement in view of his failure to eat.. Patient scheduled to be reevaluated by speech therapy.. Case management consulted to assist with guardianship to make decisions for patient -10/11/2021; no change in patient's clinical condition 10/12/2021; Patient seen still refuses to eat. Patient will need nutritional support either in the form of PEG tube or PICC line for TPN. Reluctant to proceed with PEG tube for now since patient cannot give consent and is a significant risk for pulling the PEG tube. An order has therefore been placed for PICC line placement with plans to consult dietitian for TPN. -10/13/2021. Guardianship was obtained the day prior. Plan is to discuss with emergency guardian regarding patient's care obtain consent for possible PEG tube placement 10/14/2021; Called and updated patient's emergency guardian Nicky Puckett on 10/13/2021, regarding patient's clinical condition and patient's refusal to eat and patient pulling out her NG tube report did agree that best line of care for patient will be to obtain hospice/palliative care. Consult subsequently placed 2. Ileus -10/13/2021 patient did develop several bouts of emesis during the night subsequent imaging studies with CAT scan obtained did show Fluid within nondistended loops of small bowel can be seen with gastroenteritis in the appropriate clinical setting with no wall thickening or surrounding inflammation,. NG tube was placed to low intermittent suction, consult subsequently placed to general surgery subsequent monitoring with serial imaging ordered. 3. Severe dehydration ?Secondary to patient refusal to eat being rehydrated 4. Hypernatremia ?Managed per protocol sodium level down to 141 -22 sodium level down to 136 5. Hypokalemia ?Corrected per protocol 6. Severe protein calorie malnutrition Evidenced by patient acute illness suboptimal energy intake and severe weight loss. Patient severe protein calorie malnutrition is thought to be secondary to decreased oral intake. Recommendation is to reconsult dietitian once patient resumes oral feeding 7. Previous history of CVA ?Patient is on aspirin as well as statin therapy held in view of patient refusal to eat 8. Dyslipidemia ?Patient is on statin therapy 9. Hypertension - Blood pressure controlled, home medications continued with dose adjustment as needed -10/12/2021 Patient blood pressure not well controlled adjustment made to blood pressure regimen 10. Suspected vascular dementia ?Patient is on donepezil 11. DVT prophylaxis ?SC Lovenox 12. Physical deconditioning - Requested for PT OT eval and geriatric social work professor to assist with discharge planning Charges/Coding Visit Charges Inpatient E&M: 05094 Subs Hosp L2
--- NOTE | 2021-10-14 07:29 | PN.SURG_ITS ---
Subjective Subjective The patient pulled his NG tube yesterday. He did not have any nausea vomiting overnight. He did have a bowel movement yesterday. Objective Data Objective Data Vital Signs: Vital Signs Temp Pulse Resp BP Pulse Ox 98.2 F 71 18 140/76 H 98 10/14/21 03:06 10/14/21 03:14 10/14/21 03:06 10/14/21 06:31 10/14/21 03:06 Oxygen Delivery Method Room Air Weight: 143 lb 3.2 oz Body Mass Index (BMI) 18.8 Intake & Output: Intake and Output for Last 24 Hours 10/12/21 10/13/21 10/14/21 23:59 23:59 23:59 Intake Total 3923.33 / 3923.33 2416.58 / 2416.58 Output Total 1500 / 1500 700 / 700 450 / 450 Balance 2423.33 / 2423.33 1716.58 / 1716.58 -450 / -450 Medical Nutrition Assessment Dietitian: Malnutrition Criteria Met Start: 10/06/21 13: 55 Freq: Status: Active Protocol: Document 10/13/21 10:19 AG (Rec: 10/13/21 10:19 [id number]) Nutrition Malnutrition Evidence of Malnutrition Exists Yes Malnutrition (severe): Acute Illness/Injury Evidenced By Suboptimal Energy Intake ( Severe),Weight Loss (Severe) Clinical Problem Acute Disease or Injury Related Malnutrition Etiology severe acute malnutrition r/t inadequate oral intake Signs/Symptoms as evidenced by reported no PO intake x 1 month, unintentional wt loss of 6.6#/ 5% x 9 days 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 2) Significant risk for refeeding syndrome- close monitoring of electrolytes as enteral nutrition initiated. Will start w/ 10 calories/kg/ day to prevent refeeding syndrome. 3) Recommend regular diet- texture/consistency modifications per SPECIAL COLLECTIONS LIBRARIAN if PO intake appropriate. 4) Consider PEG placement if unable to advance PO diet for long-term nutrition support. 5) Daily wts, will monitor mag /phos closely. Lab / Micro Data Result Diagrams: 10/13/21 03:37 10/13/21 03:37 Labs: Laboratory Results - last 24 hr 10/13/21 09:50: Urine Color Yellow, Urine Clarity Clear, Urine pH 6.5, Ur Specific [place] 1.005, Urine Protein 15 H, Urine Glucose (UA) Normal, Urine Ketones Negative, Urine Occult Blood 10 H, Urine Nitrite Positive H, Urine Bilirubin Negative, Urine Urobilinogen Normal, Ur Leukocyte Esterase 100 H, Urine RBC 0 SEEN, Urine WBC 5-10 SEEN, Ur Squamous Epith Cells 0 SEEN, Urine Bacteria 0 SEEN, Urine Mucus 0 SEEN 10/13/21 17:50: POC Glucose 161 H 10/13/21 21:24: POC Glucose 142 H 10/14/21 05:30: Phosphorus 1.9 L, Magnesium TNP 10/14/21 06:33: POC Glucose 143 H Micro: Microbiology 10/08/21 00:14 Sputum, Expectorated/Coughed Gram Stain - Final 10/08/21 00:14 Sputum, Expectorated/Coughed Respiratory Culture - Final Staphylococcus aureus 10/05/21 19:25 Urine, Catheterized Urine Culture - Final Staphylococcus epidermidis Radiography Diagnostic Testing: Radiology Impression KUB X-Ray 10/13/21 09:15 IMPRESSION: 1. Esophagogastric tube in the upper stomach. Recommend advancing 5 cm. 2. Decreasing bowel dilation. Electronically Signed: Dominic Mares MD (Brooks) at 9:33 EST Reading Location ID and State: [facility] / [place] , Service support , Physical Exam Const no apparent distress Resp normal respiratory effort GI soft to palpation and non-tender Assessment & Plan Assessment & Plan (1) Gastroenteritis: Plan: Patient removed his own NG tube and tolerated not having it in. He did have a bowel movement. CT showed gastroenteritis which is likely resolved. Patient's POA is ordering a palliative consult. I will sign off at this time please contact us if there is anything else we can do. Messi Wilhelm MD Pager: [facility] [address] [place] [address] Outpatient [place], [address] [place] [address] Office:
[2021-10-14] MEDS: Enoxaparin 40 MG/0.4 ML Syringe SC (08:50)
[2021-10-14] MEDS: Famotidine 200 MG/20 ML MDV 20 MG in 0.9% Normal Saline (Pres. free 8 ML 300 MG IV (08:51)
[2021-10-14] MEDS: 0.9% Saline Lock 10 ML Syringe IV (08:54)
--- NOTE | 2021-10-14 09:22 | NURSING ---
Mouth care done at this time. Wash cloth to face/cleansed face. Repositioned onto Lt side. No stool in attends.
--- NOTE | 2021-10-14 09:29 | CASEMGMT ---
Social Work Note SW received call from [facility] stating they sent Nicky Puckett the consents for Hospice care and are waiting for her to sign and return the consents. [facility] is to call this worker once consents are signed. [facility] states they do not to see pt while at [facility] and will assess pt when he returns to [facility]. Jenny Riley DESK PENS ASSEMBLER, LOG CLERK
[2021-10-14 10:50] LABS: Bedside Glucose 128 mg/dL (70-110)
--- NOTE | 2021-10-14 11:48 | CASEMGMT ---
Social Work Note NAZARIO placed a call to Iris at [facility] and updated her that pt's Guardian is to sign Hospice paperwork and then once paperwork has been assigned, pt can return to [facility] with Hospice. Iris states understanding. NAZARIO faxed updated clinicals to [facility]. Jenny Riley UPHOLSTERY PARTS SORTER, HOISTING ENGINEER PILE DRIVING
--- NOTE | 2021-10-14 12:18 | NURSING ---
used [facility] ipad to assist patient with zoom meeting with court/guardian.
--- NOTE | 2021-10-14 14:06 | NURSING ---
Pt refused mouth care at this time. Pt also did not want to turn on his right side, instead this nurse and accreditation manager assisted pt to lay supine from laying on his Lt side.
--- NOTE | 2021-10-14 14:21 | CASEMGMT ---
Social Work Note SW hasn't heard anything back from [facility] regarding status of pt's guardian Nicky signing Hospice paperwork. NAZARIO emailed Nicky Puckett regarding status of signing Hospice paperwork. NAZARIO also asked Nicky to confirm the plan is for pt to return to [facility] with Hospice services. SW waiting for response from Nicky Puckett. NAZARIO also called [facility] and asked to speak to [place] location admissions. There was no answer. NAZARIO left message with Abena to have [place] admissions call this worker back for update on pt's referral. Jenny Riley WAVE GUIDE ASSEMBLER, MARITIME OFFICER
--- NOTE | 2021-10-14 14:58 | CASEMGMT ---
Social Work Note NAZARIO placed a call to pt's Guardian Nicky Puckett. Nicky states that she signed Hospice paperwork for pt and returned it to Anne-Marie at [facility]. Nicky states it was confirmed by [facility] that they got the paperwork. Nicky states she is agreeable for pt to return to [facility] with Hospice Services. NAZARIO then received call from Leandra at [facility] stating she is waiting for Anne-Marie to return to the office to confirm with her that paperwork has been completed. NAZARIO informed Leandra that this worker is just waiting for confirmation from [facility] that they have everything they need and then this worker can get pt back to [facility]. [facility] to call this worker when they have everything confirmed. Jenny Riley INSTRUMENT ADJUSTER, MANAGER FIELD
--- NOTE | 2021-10-14 16:07 | TREXTCAR_ITS ---
Diet 10/05/21 23:11 Diet: Nothing Per Oral Is pt able to select menu?: No Diet Comments: Strict NPO Wound(s) right knee: Wound Type: scabbed wound LLE: Wound Type: multiple scabbed wounds left elbow: Wound Type: scabbed wound Therapies Physical Therapy: Eval and Treat Occupational Therapy: Eval and Treat Problem/Diagnosis (1) Adult failure to thrive: Status: Acute (2) Hypokalemia: Status: Acute (3) Dehydration: Status: Acute (4) Hypernatremia: Status: Acute Allergies/Procedures Done in Hospital Allergies amoxicillin Allergy (Verified 03/11/21 16:49) Unknown erythromycin base Allergy (Verified 03/11/21 19:01) NEEDS FOLLOW-UP propoxyphene [From Darvon] Allergy (Verified 03/11/21 16:49) Unknown sulfamethoxazole [From Bactrim] Allergy (Verified 03/11/21 19:01) NEEDS FOLLOW-UP trimethoprim [From Bactrim] Allergy (Verified 03/11/21 19:01) NEEDS FOLLOW-UP Type of Care/Length of Stay Estimated LOS: More Than 30 Days Type of Care Needed: Intermediate Rehab Potential: Poor Prognosis: Poor Additional Orders/Day of Discharge Day of Discharge: 10/14/21 Dietary and Speech Recommendations Dietitian Recommendations/Changes: Recommend continue TPN if pt does not go on hospice services. Please consult dietitian daily to manage/order TPN as appropriate. Discharge Plan Admission Admit Date/Time: 10/05/21 21:48 Attending Provider: Anuj Spears Primary Care Provider: Alvina Granados Consulting Providers: Messi Wilhelm ; Merle Alexander ; Anuj Wheeler ; Olena Garland ; Columba Sanchez ; Quita Keys ; Sharmin Dutta SPORTS PHOTOGRAPHER Discharge Orders/Prescriptions Prescriptions: Continued famotidine [Pepcid] 20 mg Tablet 20 mg PO DAILY RF: 0 amlodipine 10 mg Tablet 10 mg PO QHS RF: 0 aspirin 81 mg tablet,delayed release (DR/EC) 81 mg PO DAILY Qty: 30 RF: 0 quetiapine [Seroquel] 50 mg Tablet 50 mg PO QHS RF: 0 clonidine HCl 0.1 mg tablet 0.1 mg PO TID RF: 0 aripiprazole 5 mg PO/SL DAILY RF: 0 donepezil 5 mg PO/SL BID RF: 0 folic acid 1 mg PO/SL DAILY RF: 0 guaifenesin 10 mg PO/SL Q4H PRN (Reason: Cough) RF: 0 potassium bicarbonate 50 mEq Tablet, Effervescent 1 ea PO BID RF: 0 atorvastatin 40 mg tablet 1 mg PO QHS RF: 0 cyanocobalamin (vitamin B-12) 50 mcg Tablet 500 mcg PO DAILY RF: 0 bisacodyl 10 mg Suppository 10 mg MD DAILY RF: 0 mirtazapine 30 mg Tablet 30 mg PO QHS RF: 0 aluminum-magnesium hydroxide 225-200 mg/5 mL Suspension 30 ml PO Q4H PRN (Reason: Gastric Reflux) RF: 0 metoprolol tartrate 50 mg tablet 50 mg PO BID RF: 0 [place]-mag hydroxide Suspension 30 ml PO PRN (Reason: Constipation) RF: 0 bupropion HCl [Wellbutrin XL] 150 mg Tablet Extended Release 24 Hr 150 mg PO QHS RF: 0 memantine 10 mg Tablet 10 mg PO QHS RF: 0 Referrals / Follow Up: Alvina Granados MD [Primary Care Provider] - Disposition Disposition (needs filled in before D/C Order can be placed): Hospice in Medical Facility
--- NOTE | 2021-10-14 16:11 | PCM.DC.SUM ---
Providers Date of Admission: 10/05/21 Primary Care Physician: Dr. Alvina Granados MD Consultations 10/13/21 00:42 Consult: General Surgery Routine Consulting Provider: Messi Wilhelm Reason for Consult: N/V, KUB w/ suspected developing SBO EMERGENT Consult: No Notified: Yes Date Notified: 10/13/21 Time Notified: 00:43 Method of Notification: Text 10/13/21 15:16 Consult: Hospice / Palliative Care Routine Consulting Provider: [facility] Reason for Consult: failure to thrive EMERGENT Consult: No Notified: Yes Date Notified: 10/13/21 Time Notified: 17:07 Method of Notification: SW spoke to hospice Reason For Visit: DEHYDRATION Diagnosis Discharge Diagnosis (1) Adult failure to thrive: Status: Acute Code(s): R62.7 - Adult failure to thrive (2) Hypokalemia: Status: Acute Code(s): E87.6 - Hypokalemia (3) Dehydration: Status: Acute Code(s): E86.0 - Dehydration (4) Hypernatremia: Status: Acute Code(s): E87.0 - Hyperosmolality and hypernatremia Medications at Discharge Home Medications amlodipine 10 mg PO QHS 03/11/21 famotidine [Pepcid] 20 mg PO DAILY 03/11/21 aspirin 81 mg PO DAILY #30 tab 03/14/21 quetiapine [Seroquel] 50 mg PO QHS 09/06/21 aluminum-magnesium hydroxide 30 ml PO Q4H PRN 10/05/21 aripiprazole 5 mg PO/SL DAILY 10/05/21 atorvastatin 1 mg PO QHS 10/05/21 bisacodyl 10 mg CA DAILY 10/05/21 bupropion HCl [Wellbutrin XL] 150 mg PO QHS 10/05/21 [place] sagrada-mag hydroxide 30 ml PO PRN 10/05/21 clonidine HCl 0.1 mg PO TID 10/05/21 cyanocobalamin (vitamin B-12) 500 mcg PO DAILY 10/05/21 donepezil 5 mg PO/SL BID 10/05/21 folic acid 1 mg PO/SL DAILY 10/05/21 guaifenesin 10 mg PO/SL Q4H PRN 10/05/21 memantine 10 mg PO QHS 10/05/21 metoprolol tartrate 50 mg PO BID 10/05/21 mirtazapine 30 mg PO QHS 10/05/21 potassium bicarbonate 1 ea PO BID 10/05/21 Hospital Course Summary of Care Provided Minutes Spent on Discharge: 35 Hospital Course: . Adult failure to thrive ?Admitted to regular nursing floor. Patient is apparently declined to eat. There was consideration for possible PEG tube placement in view of his failure to eat.. Patient scheduled to be reevaluated by speech therapy.. Case management consulted to assist with guardianship to make decisions for patient -10/11/2021; no change in patient's clinical condition 10/12/2021; Patient seen still refuses to eat. Patient will need nutritional support either in the form of PEG tube or PICC line for TPN. Reluctant to proceed with PEG tube for now since patient cannot give consent and is a significant risk for pulling the PEG tube. An order has therefore been placed for PICC line placement with plans to consult dietitian for TPN. -10/13/2021. Guardianship was obtained the day prior. Plan is to discuss with emergency guardian regarding patient's care obtain consent for possible PEG tube placement 10/14/2021; Called and updated patient's emergency guardian Nicky Puckett on 10/13/2021, regarding patient's clinical condition and patient's refusal to eat and patient pulling out her NG tube report did agree that best line of care for patient will be to obtain hospice/palliative care. Consult subsequently placed 2. Ileus -10/13/2021 patient did develop several bouts of emesis during the night subsequent imaging studies with CAT scan obtained did show Fluid within nondistended loops of small bowel can be seen with gastroenteritis in the appropriate clinical setting with no wall thickening or surrounding inflammation,. NG tube was placed to low intermittent suction, consult subsequently placed to general surgery subsequent monitoring with serial imaging ordered. 3. Severe dehydration ?Secondary to patient refusal to eat being rehydrated 4. Hypernatremia ?Managed per protocol sodium level down to 141 -22 sodium level down to 136 5. Hypokalemia ?Corrected per protocol 6. Severe protein calorie malnutrition Evidenced by patient acute illness suboptimal energy intake and severe weight loss. Patient severe protein calorie malnutrition is thought to be secondary to decreased oral intake. Recommendation is to reconsult dietitian once patient resumes oral feeding 7. Previous history of CVA ?Patient is on aspirin as well as statin therapy held in view of patient refusal to eat 8. Dyslipidemia ?Patient is on statin therapy 9. Hypertension - Blood pressure controlled, home medications continued with dose adjustment as needed -10/12/2021 Patient blood pressure not well controlled adjustment made to blood pressure regimen 10. Suspected vascular dementia ?Patient is on donepezil 11. DVT prophylaxis ?SC Lovenox 12. Physical deconditioning - Requested for PT OT eval and clinical social work aide to assist with discharge planning Physical Exam Narrative GENERAL: No apparent distress HEENT: Atraumatic; EYES; Anicteric, Normal Conjunctiva NECK; supple, normal thyroid, RESPIRATORY: Diminished to auscultation CARDIOVASCULAR: Regular S1 S2, GI: soft, normoactive bowel sounds, : No Renal angle tenderness; EXTREMITIES: No edema, no clubbing, MUSCULOSKELETAL: no muscle wasting NEURO: Awake; no lateralizing signs. SKIN: No Rash PSYCH; Flat affect Medical Records Data Medical Nutrition Assessment Dietitian: Malnutrition Criteria Met Start: 10/06/21 13:55 Freq: Status: Active Protocol: Document 10/13/21 10:19 AG (Rec: 10/13/21 10:19 [id number]) Nutrition Malnutrition Evidence of Malnutrition Exists Yes Malnutrition (severe): Acute Illness/Injury Evidenced By Suboptimal Energy Intake ( Severe),Weight Loss (Severe) Clinical Problem Acute Disease or Injury Related Malnutrition Etiology severe acute malnutrition r/t inadequate oral intake Signs/Symptoms as evidenced by reported no PO intake x 1 month, unintentional wt loss of 6.6#/ 5% x 9 days CURRICULUM ASSISTANT PRINCIPAL, 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 2) Significant risk for refeeding syndrome- close monitoring of electrolytes as enteral nutrition initiated. Will start w/ 10 calories/kg/ day to prevent refeeding syndrome. 3) Recommend regular diet- texture/consistency modifications per MANAGER UTILITIES if PO intake appropriate. 4) Consider PEG placement if unable to advance PO diet for long-term nutrition support. 5) Daily wts, will monitor mag /phos closely. Weight / BMI Weight Weight: 64.954 kg Body Mass Index (BMI) 18.8 ABG / Lab / Microbiology Data Result Diagrams: 10/13/21 03:37 10/13/21 03:37 Laboratory: Laboratory Results - last 24 hr 10/13/21 17:50: POC Glucose 161 H 10/13/21 21:24: POC Glucose 142 H 10/14/21 05:30: Phosphorus 1.9 L, Magnesium TNP 10/14/21 06:33: POC Glucose 143 H 10/14/21 10:45: POC Glucose 128 H Microbiology: Microbiology 10/13/21 09:50 Urine, Catheterized Urine Culture - Preliminary Staphylococcus species 10/08/21 00:14 Sputum, Expectorated/Coughed Gram Stain - Final 10/08/21 00:14 Sputum, Expectorated/Coughed Respiratory Culture - Final Staphylococcus aureus 10/05/21 19:25 Urine, Catheterized Urine Culture - Final Staphylococcus epidermidis Meaningful Use Info Meaningful Use Diagnoses (Choose all that apply): None applicable Discharge Plan Admission Admit Date/Time: 10/05/21 21:48 Attending Provider: Anuj Spears Primary Care Provider: Alvina Granados Consulting Providers: Messi Wilhelm ; Merle Alexander ; Anuj Wheeler ; Olena Garland ; Columba Sanchez ; Quita Keys ; Sharmin Dutta OUTBOUND SALES CONSULTANT Discharge Orders/Prescriptions Prescriptions: Continued famotidine [Pepcid] 20 mg Tablet 20 mg PO DAILY RF: 0 amlodipine 10 mg Tablet 10 mg PO QHS RF: 0 aspirin 81 mg tablet,delayed release (DR/EC) 81 mg PO DAILY Qty: 30 RF: 0 quetiapine [Seroquel] 50 mg Tablet 50 mg PO QHS RF: 0 clonidine HCl 0.1 mg tablet 0.1 mg PO TID RF: 0 aripiprazole 5 mg PO/SL DAILY RF: 0 donepezil 5 mg PO/SL BID RF: 0 folic acid 1 mg PO/SL DAILY RF: 0 guaifenesin 10 mg PO/SL Q4H PRN (Reason: Cough) RF: 0 potassium bicarbonate 50 mEq Tablet, Effervescent 1 ea PO BID RF: 0 atorvastatin 40 mg tablet 1 mg PO QHS RF: 0 cyanocobalamin (vitamin B-12) 50 mcg Tablet 500 mcg PO DAILY RF: 0 bisacodyl 10 mg Suppository 10 mg CA DAILY RF: 0 mirtazapine 30 mg Tablet 30 mg PO QHS RF: 0 aluminum-magnesium hydroxide 225-200 mg/5 mL Suspension 30 ml PO Q4H PRN (Reason: Gastric Reflux) RF: 0 metoprolol tartrate 50 mg tablet 50 mg PO BID RF: 0 cascara sagrada-mag hydroxide Suspension 30 ml PO PRN (Reason: Constipation) RF: 0 bupropion HCl [Wellbutrin XL] 150 mg Tablet Extended Release 24 Hr 150 mg PO QHS RF: 0 memantine 10 mg Tablet 10 mg PO QHS RF: 0 Referrals / Follow Up: Alvina Granados MD [Primary Care Provider] - Disposition Disposition (needs filled in before D/C Order can be placed): Hospice in Medical Facility Charges/Coding Visit Charges Inpatient E&M: 93054 Disch Hosp
[2021-10-14 17:11] LABS: Bedside Glucose 147 mg/dL (70-110)
--- NOTE | 2021-10-14 17:55 | CASEMGMT ---
Addendum entered by Jenny Riley 10/14/21 18:39: SW updated that Claudine from [facility] is aware of discharge and transportation time. Original Note: Social Work Note SW received call from Anne-Marie at [facility] stating they received consents/paperwork from pt's Guardian and pt can discharge back to [facility] today with Hospice services. SW updated physician. SW faxed completed discharge paperwork to [facility] including transfer to extended care facility, signed medication list, and any scripts. Original in SNF folder and copy on pt's chart. SW also faxed copy of guardianship paperwork to [facility]. SW spoke with RN, pt to transport via cot. SW accessed trip assist and arranged transportation via cot for 8:30pm. Transportation form completed and placed on SNF folder and copy on pt's chart. SW updated RN on transportation time. SW in to speak with pt. SW updated pt that he will return to [facility] today at 8:30pm. NAZARIO placed a call to Iris at [facility] and left message updating her on transportation time. NAZARIO placed a call to pt's Guardian Nicky Puckett and left message updating her on discharge and transportation time. NAZARIO also emailed Nicky Puckett and updated her on discharge and transportation time. NAZARIO asked laboratory secretary to fax COVID test/tool once completed to [facility] and place original in SNF folder. Plan: Return to [facility] with Hospice services under intermediate level of care today with Physician's transporting pt via cot at 8:30pm Jenny Riley MSW, REPLANTING MACHINE CREW
--- NOTE | 2021-10-14 19:04 | NURSING ---
PICC discontinued. Acclusive drsg on site held with opsite. Pt layed flat for 30min post removal.
--- NOTE | 2021-10-14 22:34 | NURSING ---
1950. this RN placed a call to [facility], attempting to give report before pt is to be discharged back tonight by EMS. Spoke to Alysha, and she transferred me back to the nurse design verification engineer, who then told me to hang up and call again to get Alysha as she would be the RN taking care of him tonight. Second call placed to [facility] at this time and no answer. Upon Third call placed to a different floor, placed on hold for 20 minutes, and then got hung up on as call was disconnected. Fourth call to [facility] and was eventually transferred to Alysha FRAIRE, who was upset that we were transferring him back tonight. This RN apologized and said that EMS is to escort him tonight. report given to Alysha at 2029.
[2021-10-15 09:51] LABS: MG Sendout 1.3 mg/dL (1.6-2.3)
== END 2021-10-14 22:05 | disposition hospice, inpatient (51) | DRG 640 ==
LOC: ED 21:58 → MS3 22:25
PROVIDERS: Internal Medicine; Physician Assistant; Surgery; Admitting Provider Hospitalist; Emergency Provider Emergency Medicine; PCP Internal Medicine; Visit Provider Internal Medicine
DX: E87.0 Hyperosmolality and hypernatremia (principal); E43 Unspecified severe protein-calorie malnutrition; G93.49 Other encephalopathy; F20.0 Paranoid schizophrenia; K56.7 Ileus, unspecified; Z68.1 Body mass index [BMI] 19.9 or less, adult; L03.113 Cellulitis of right upper limb; E83.51 Hypocalcemia; R62.7 Adult failure to thrive; F01.50 Vascular dementia, unspecified severity, without behavioral disturbance, psychotic disturbance, mood disturbance, and anxiety; E86.0 Dehydration; E11.9 Type 2 diabetes mellitus without complications; F03.90 Unspecified dementia, unspecified severity, without behavioral disturbance, psychotic disturbance, mood disturbance, and anxiety; E78.5 Hyperlipidemia, unspecified; I10 Essential (primary) hypertension; E87.6 Hypokalemia; K52.9 Noninfective gastroenteritis and colitis, unspecified; R82.81 Pyuria; Z51.5 Encounter for palliative care; Z20.822 Contact with and (suspected) exposure to COVID-19; Z86.16 Personal history of COVID-19; Z79.82 Long term (current) use of aspirin; Z79.899 Other long term (current) drug therapy; Z86.73 Personal history of transient ischemic attack (TIA), and cerebral infarction without residual deficits
CPT/HCPCS: 36415; 36569; 71045; 74018; 74177; 80048; 80053; 81001; 82962; 83036; 83605; 83735; 84100; 84443; 85025; 85027; 87070; 87077; 87086; 87088; 87186; 87205; 87426; 92526; 92610; 93005; 97802; 97803; 99285; J7030; Q9967; A4216; J0610; J2405; J3490; J7799

== ENCOUNTER → 2021-10-05 | Outpatient (REF) | payer MEDICARE, MEDICAID, SELFPAY ==
[2021-10-05 10:11] LABS: Absolute Lymphocyte Count 1.75 X10^3/uL (0.83-4.51); Absolute Neutrophil Count 8.1 X10^3/uL (2.0-7.7); Basophil# 0.03 X10^3/uL; Basophil% 0.3 % (0-1); Eosinophil# 0.11 X10^3/uL; Hematocrit 42.8 % (40-54); Lymphocyte # 1.75 X10^3/ul (0.83-4.51); Lymphocyte % 16.2 % (19-41); Mean Corp Hgb Conc 32.7 g/dL (32-36); Mean Corpuscular Hgb 30.9 pg (27.0-32.0); Mean Corpuscular Volume 94.5 fL (80-94); Mean Platelet Vol. 10.3 fl (6.2-12.0); Monocyte# 0.71 X10^3/uL; Monocyte% 6.6 % (0-10); NRBC Flagged by Analyzer 0 % (0-5); Neutrophil # 8.13 X10^3/uL (2.7-7.7); Neutrophil % 75.5 % (47-70); Platelet Count 211 K/mm3 (150-450); RBC Distribution Width CV 13.7 % (11.6-14.6); RBC Distribution Width SD 46.8 fl (35.1-43.9); Red Blood Count 4.53 M/mm3 (4.6-6.2); White Blood Count 10.8 K/mm3 (4.4-11.0)
[2021-10-05 10:36] LABS: Anion Gap 6 (5-15); BUN 40 mg/dL (7-18); BUN/Creat Ratio 26.5 RATIO (10-20); Calcium,Total 8.7 mg/dL (8.5-10.1); Chloride 120 mmol/L (98-107); Creatinine, Serum 1.51 mg/dL (0.70-1.30); EST Glomerular Filtration Rate 48 mL/min (>60); Est Glom Filt Rate - Afr Amer 58 mL/min (>60); Glucose 92 mg/dL (74-106); Magnesium 2.2 mg/dL (1.6-2.6); Potassium 2.8 mmol/L (3.5-5.1); Sodium Level 154 mmol/L (136-145); Thyroid Stim Hormone (TSH) 0.32 uIU/mL (0.358-3.74)
[2021-10-05 10:46] LABS: Hemoglobin A1c 6.1 % (3.8-5.6)
== END | disposition home or self-care (01) ==
LOC: OLS.SW1020 05:00
PROVIDERS: PCP Internal Medicine; Visit Provider Internal Medicine
DX: I10 Essential (primary) hypertension (principal); E11.9 Type 2 diabetes mellitus without complications; L03.113 Cellulitis of right upper limb; E78.5 Hyperlipidemia, unspecified
CPT/HCPCS: 36415; 80048; 83036; 83735; 84443; 85025